=== PATIENT | female | born 1980 | race Two or more races ===

== ENCOUNTER 2025-06-07 12:31 | Inpatient (IN) | payer MEDICAID ==
[~2025-06-07] VITALS: Ht 165.1 cm; Wt 132.2 kg
--- NOTE | 2025-06-07 12:52 | ECG ---
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
--- NOTE | 2025-06-07 13:04 | ED.PDOC ---
HPI Comments 45y F who presents to the ED for chief complaint of chest pain. Pt states she has been having L sided facial and L arm pain with associated chest pain for the past 1 hours ago while pt was sitting down watching TV. Pt rates the pain 7/10, constant, sharp in nature, with associated shortness of breath and nausea. Pt otherwise has history of COPD and presents with 2 L via nc.Pt has had these symptoms in the past with noted past history of multiple strokes and TIA's. Pt otherwise denies any other symptoms at this time. Chief Complaint: Chest Pain Time Seen by MD: 12:50 Reviewed Notes: Nurses Notes, Medications, Allergies Allergies: Coded Allergies: Celecoxib (Verified Allergy, Unknown, 06/07/25) Information Source: Patient, Significant Other Mode of Arrival: Wheelchair Brought in by: boyfriend Severity: Moderate Timing: Hours Duration: Since onset Prehospital treatment: None Location: Chest (R) Radiation: Arm (R), Other (L FACE) Quality: Sharp, Pressure Onset: At Rest Cardiac Risk Factors: Hyperlipidemia, HTN PE Risk Factors: None History of: Similar pain in past Modifying Factors: Nothing Associated Signs and Symptoms: SOB, N/V Past Medical History PAST MEDICAL HISTORY: COPD, CVA, High Lipids, HTN, Seizures, TIA Surgical History: Hysterectomy [employer] History: Denies all [employer] Hx Family History Family History: Family hx of Cancer Social History Smoker: Other (vape) Alcohol: Denies ETOH Use Drugs: Denies Drug Use Lives In: Home Constitutional: reports: fatigue, weakness; denies: chills, diaphoresis, fever, malaise, sweats, others EENTM: denies: blurred vision, double vision, ear bleeding, ear discharge, ear drainage, ear pain, ear ringing, eye pain, eye redness, hearing loss, mouth pain, mouth swelling, nasal discharge, nose bleeding, nose congestion, nose pain, photophobia, tearing, throat pain, throat swelling, voice changes, others Respiratory: reports: shortness of breath; denies: cough, hemoptysis, orthopnea, SOB at rest, SOB with excertion, stridor, wheezing, others Cardiovascular: reports: chest pain; denies: dizzy spells, diaphoresis, Dyspnea on exertion, edema, irregular heart beat, left arm pain, lightheadedness, palpitations, PND, syncope, others Gastrointestinal: reports: nausea; denies: abdomen distended, abdominal pain, blood streaked bowels, constipated, diarrhea, dysphagia, difficulty swallowing, hematemesis, melena, poor appetite, poor fluid intake, rectal bleeding, rectal pain, vomiting, others Genitourinary: denies: abnormal vagina bleeding, burning, dyspareunia, dysuria, flank pain, frequency, hematuria, incontinence, pain, , vagina discharge, urgency, others Neurological: denies: dizziness, fainting, headache, left sided numbness, left sided weakness, numbness, paresthesia, pre-existing deficit, right sided nu mbness, right sided weakness, seizure, speech problems, tingling, tremors, weakness, others Musculoskeletal: denies: back pain, gout, joint pain, joint swelling, muscle pain, muscle stiffness, neck pain, others Integumetry: denies: bruises, change in color, change in hair/nails, dryness, laceration, lesions, lumps, rash, wounds, others Allergic/Immunocompromised: denies: Difficulty Healing, Frequent Infections, Hives, Itching, others Hematologic/Lymphatic: denies: anemia, blood clots, easy bleeding, easy bruising, swollen glands, others Endocrine: denies: excessive hunger, excessive sweating, excessive thirst, excessive urination, flushing, intolerance to cold, intolerance to heat, unexplained weight gain, unexplained weight loss, others Psychiatric: denies: anxiety, bipolar disorder, depression, hopeless, panic disorder, schizophrenia, sleepless, suicidal, others All Other Systems: Reviewed and Negative Physical Exam General Appearance: Moderate Distress, Obese HEENT: Normal ENT Inspection, Pharynx Normal, TMs Normal Neck: Full Range of Motion, Non-Tender, Normal, Normal Inspection Respiratory: Chest Non-Tender, Lungs Clear, No Accessory Muscle Use, No Respiratory Distress, Normal Breath Sounds Cardiovascular: No Edema, No JVD, No Murmur, No Gallop, Normal Peripheral Pulses, Regular Rate/Rhythm Breast Exam: Deferred Gastrointestinal: No Organomegaly, Non Tender, No Pulsatile Mass, Normal Bowel Sounds, Soft Genitalia: Deferred Pelvic: Deferred Rectal: Deferred Extremities: No calf tenderness, Normal capillary refill, No pedal edema Musculoskeletal : Apperance: Normal Neurologic: Alert, cold strip feeder II-XII nml as Tested, Motor Weakness, Normal Affect, Normal Mood, No Sensory Deficits Cerebellar Function: Normal Reflexes: Normal Skin: Dry, Normal Color, Warm Lymphatic: No Adenopathy EKG EKG : Pulse Rate (adult): 84 [place]: LAD Cardiac Rhythm: NSR Block: None Hypertrophy: None ST: Normal Comments low voltage Was a procedure done? Was a procedure done?: No CP Differential Dx Differential Diagnosis: A-fib, A-Flutter, Angina, Anxiety / Panic Attack, Atrial Dysrhythmia, Electrolyte Disorder, Heart Failure, IA, Pulmonary Embolus, PVC's Other Differential Diagnosis COPD exacerbation Differential Diagnosis: HTN Essential, HTN Accelerated X-Ray, Labs, Meds, VS Vital Signs Date Time Temp Pulse Resp B/P (MAP) Pulse Ox O2 Delivery O2 Flow Rate FiO2 06/07/25 13:38 85 06/07/25 13:04 84 06/07/25 12:38 84 06/07/25 12:34 98.0 87 20 113/83 96 98.0 Lab Test 06/07/25 14:27 06/07/25 13:13 Range/Units Troponin I High Sensitivity < 3 L < 3 L </=34 ng/L White Blood Count 10.4 4.4-10.8 10^3/uL Red Blood Count 4.98 4.0-5.20 10^6/uL Hemoglobin 14.8 12.2-16.2 g/dL Hematocrit 44.7 36.0-46.0 % Mean Corpuscular Volume 89.8 80.0-100.0 fL Mean Corpuscular Hemoglobin 29.8 28.0-32.0 pg Mean Corpuscular Hemoglobin Concent 33.2 32.0-36.0 g/dL Red Cell Distribution Width 14.4 H 11.8-14.3 % Platelet Count 316 140-450 10^3/uL Mean Platelet Volume 7.7 6.9-10.8 fL Neutrophils (%) (Auto) 58.1 37.0-80.0 % Lymphocytes (%) (Auto) 26.0 10.0-50.0 % Monocytes (%) (Auto) 9.3 0.0-12.0 % Eosinophils (%) (Auto) 5.7 0.0-7.0 % Basophils (%) (Auto) 0.9 0.0-2.0 % Neutrophils # (Auto) 6.0 1.6-8.6 10 ^3/uL Lymphocytes # (Auto) 2.7 0.4-5.4 10 ^3/uL Monocytes # (Auto) 1.0 0-1.3 10 ^3/uL Eosinophils # (Auto) 0.6 0-0.8 10 ^3/uL Basophils # (Auto) 0.1 0-0.2 10 ^3/uL Nucleated Red Blood Cells 0.0 % Sodium Level 141 136-145 mmol/L Potassium Level 3.6 3.5-5.1 mmol/L Chloride Level 107 98-107 mmol/L Carbon Dioxide Level 25 20-31 mmol/L Anion Gap 9 5-15 Blood Urea Nitrogen 15 9-23 mg/dL Creatinine 0.95 0.550-1.02 mg/dL Glomerular Filtration Rate Calc 76 >90 mL/min BUN/Creatinine Ratio 15.8 10.0-20.0 Serum Glucose 103 74-106 mg/dL Calcium Level 9.3 8.7-10.4 mg/dL XY CHEST TWO VIEWS ROUTINE IMPRESSION: No acute cardiopulmonary disease. IV Hep-Lock was established The patient was given aspirin here in the emergency department's The patient received aspirin The patient's CBC is within normal limits The chemistry panel is within normal limits The troponin level x2 is negative The patient is being admitted with a diagnosis of acute coronary syndrome The patient understands and agrees with the management Images Reviewed?: Images reviewed and evaluated by me Time of 1ST Reevaluation: 14:00 Reevaluation 1ST: Unchanged Patient Education/Counseling: Diagnosis, Treatment, Prognosis Family Education/Counseling: Diagnosis, Treatment, Prognosis SEPSIS Sepsis Screen Date sepsis recognized/suspect: Jun 07, 2025 Time Sepsis recognized/suspect: 1237 Recent Procedure: No On Antibiotic Therapy: No Respiratory Rate >20: No Heart Rate >90: No Temp<36 C (96.8 F) or >38.3 C: No SBP <90 or MAP <65 mmHG: No New Acute Mental Status Change: No Is the patient on CPAP, BIPAP,: No Physician Orders Electrocardigram (06/07/25 15:51) Heplock Iv (06/07/25 12:51) Ehr Trainer (06/07/25 12:51) Blood Pressure (06/07/25 12:51) Pulse Oximetry (06/07/25 12:51) Chest Two Views Routine (06/07/25 12:51) Urinalysis (06/07/25 12:51) Troponin-I Hs (06/07/25 15:51) Vital Signs Date Time Temp Pulse Resp B/P (MAP) Pulse Ox O2 Delivery O2 Flow Rate FiO2 06/07/25 13:38 85 06/07/25 13:04 84 06/07/25 12:38 84 06/07/25 12:34 98.0 87 20 113/83 96 98.0 Laboratory Tests Test 06/07/25 13:13 White Blood Count 10.4 10^3/uL (4.4-10.8) Departure 1 Departure Time of Disposition: 13:59 Impression: Primary Impression: Acute chest pain Additional Impression: Acute coronary syndrome Disposition: ADMITTED INPATIENT Admit to: [facility] Condition: Fair Critical Care Note Critical Care Time?: Yes (45 min-critical care time only) Stability Stability form required: Yes Unstable for transfer: Telemetry monitoring (Telemetry monitoring required), ED Physician Assesment (Clinical assesment) Heart Score Heart Score: Heart Score Response (Comments) Value History Slightly Suspicious 0 EKG Repolarization Disturb 1 Age <45 0 Risk Factors 1 or 2 risk factors 1 Troponin Normal limit 0 Total 2 I personally scribed for TONY CONTRERAS MD ([email or web address]) on 06/07/25 at 13:04. Electronically submitted by Miguel Smith ([facility]). I personally scribed for TONY CONTRERAS MD ([email or web address]) on 06/07/25 at 13:29. Electronically submitted by Miguel Smith ([facility] [employer]). TONY CONTRERAS MD Jun 07, 2025 13:04
--- NOTE | 2025-06-07 13:18 | DVH ---
XY CHEST TWO VIEWS ROUTINE CLINICAL HISTORY: cp COMPARISON: None TECHNIQUE: Frontal and lateral view of the chest was obtained FINDINGS: Lines and Tubes: None Lungs: No focal consolidation. Pleura: No effusion. No pneumothorax. Cardiomediastinal contours: Unremarkable Bones: No acute osseous abnormality. IMPRESSION: No acute cardiopulmonary disease.
--- NOTE | 2025-06-07 13:41 | ECG ---
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
[2025-06-07 14:03] LABS: Hematocrit 44.7 % (36.0-46.0); Hemoglobin 14.8 g/dL (12.2-16.2); Mean Corpuscular Hemoglobin 29.8 pg (28.0-32.0); Mean Corpuscular Volume 89.8 fL (80.0-100.0); Nucleated Red Blood Cells % 0.0 %
[2025-06-07 14:11] LABS: Chloride 107 mmol/L (98-107); Potassium 3.6 mmol/L (3.5-5.1); Sodium 141 mmol/L (136-145)
[2025-06-07 14:12] LABS: Anion Gap 9 (5-15); Calcium 9.3 mg/dL (8.7-10.4); Carbon Dioxide 25 mmol/L (20-31)
[2025-06-07 14:17] LABS: BUN/Creatinine Ratio 15.8 (10.0-20.0); Blood Urea Nitrogen 15 mg/dL (9-23); Glucose 103 mg/dL (74-106)
[2025-06-07] MEDS: MORPHINE SULFATE 4 MG/ML SYR/VIAL IV ONE (19:12)
[2025-06-07] MEDS: ONDANSETRON HCL 4 MG/2 ML VIAL IV ONE (19:13)
[2025-06-07] MEDS ORDERED: NITROGLYCERIN 0.4 MG SL TAB SL PRN (19:45)
[2025-06-07] MEDS ORDERED: MORPHINE SULFATE INJ 2 MG/ml SYRG IV PRN (19:45)
[2025-06-07] MEDS ORDERED: ONDANSETRON HCL 4 MG/2 ML VIAL IV PRN (19:45)
[2025-06-07] MEDS ORDERED: ACETAMINOPHEN 325 MG TAB PO PRN (19:45)
[2025-06-07] MEDS ORDERED: ALBUTEROL SULF 2.5 MG/0.5ML(0.5%) NEB SOLN NEB PRN (19:45)
[2025-06-07 20:01] VITALS: PULSE 80; RESP 18; O2SAT 95
[2025-06-07] MEDS: ALBUTEROL SULF 2.5 MG/0.5ML(0.5%) NEB SOLN ONE (20:01)
[2025-06-07 20:07] VITALS: PULSE 75; RESP 20; O2SAT 100
[2025-06-07 20:55] VITALS: BP 112/71; PULSE 80; RESP 20; TEMP 97.9; O2SAT 95
[2025-06-07] MEDS ORDERED: TOPIRAMATE 100 MG TAB PO SCH (22:00)
[2025-06-07] MEDS ORDERED: lamoTRIgine 100 MG TAB PO SCH (22:00)
[2025-06-07] MEDS ORDERED: ATORVASTATIN 20 MG TAB PO SCH (22:00)
[2025-06-07] MEDS ORDERED: levETIRAcetam 500 MG TAB PO SCH (22:00)
--- NOTE | 2025-06-07 22:11 | DVHHP2 ---
History of Present Illness Reason for Visit: Chest pain History of Present Illness 45-year-old female presents for evaluation of chest pain. Patient reports a one day history of developing left-sided sharp chest pain that was radiating to her left arm causing left arm numbness. She states the episode lasted approximately 1 hour. Currently she denies chest pain, palpitations or shortness for breath. No other acute complaints reported. Past Medical History Hypertension, seizures, CVA, dyslipidemia, COPD Past Surgical History Hysterectomy Family History Noncontributory Smoke: No ALCOHOL: none Drugs: None Lives: with Family Review of Systems Review of Systems Review of systems are currently negative otherwise addressed in HPI. Allergies: Coded Allergies: Celecoxib (Verified Allergy, Unknown, 06/07/25) Medications Current Medications Medications Dose Ordered Sig/[place] Route Start Time Stop Time Status Last Admin Dose Admin Aspirin 81 mg DAILY PO 06/08/25 10:00 Lamotrigine 200 mg Q12HR PO 06/07/25 22:00 Topiramate 100 mg Q12HR PO 06/07/25 22:00 Albuterol 2.5 mg Q6HPRN PRN NEB 06/07/25 19:45 Levetiracetam 750 mg BID PO 06/07/25 22:00 Clopidogrel Bisulfate 75 mg DAILY PO 06/08/25 10:00 Atorvastatin Calcium 80 mg HS PO 06/07/25 22:00 Furosemide 20 mg DAILY PO 06/08/25 10:00 Lisinopril 10 mg DAILY PO 06/08/25 10:00 Ondansetron HCl 4 mg Q4HP PRN IV 06/07/25 19:45 Enoxaparin Sodium 40 mg DAILY SC 06/08/25 10:00 Acetaminophen 650 mg Q6HP PRN PO 06/07/25 19:45 Nitroglycerin 0.4 mg Q5MINP PRN SL 06/07/25 19:45 Morphine Sulfate 2 mg Q30M PRN IV 06/07/25 19:45 Exam Vital Signs Vital Signs Date Time Temp Pulse Resp B/P (MAP) Pulse Ox O2 Delivery O2 Flow Rate FiO2 06/07/25 20:55 97.9 80 20 112/71 95 2.0 24 97.9 06/07/25 20:01 Nasal Cannula* Exam Gen: 45-year-old female in no apparent distress, morbidly obese Skin: Warm, dry, normal color and texture, no rash. HEENT: Normocephalic atraumatic, mucous membranes moist and pink. Neck: Cervical and supraclavicular nodes normal without enlargement, trachea is midline, thyroid gland is normal without masses. Pulmonary: Clear to auscultation and percussion bilaterally. Cardiac: Regular rate and rhythm. No murmur Abdomen: Soft, nontender, nondistended, bowel sounds present all 4 quadrants, no guarding, no rigidity, no organomegaly. Extremities: No cyanosis, clubbing, no edema Neuro: Cranial nerves II through XII grossly intact, normal affect and speech, no focal motor deficits. Labs/Xrays ORDERING PHYSICIAN: TONY CONTRERAS MD PROCEDURE(s): CXR2 - CHEST TWO VIEWS ROUTINE REASON: cp ORDER NUMBER(s): [id number], ACCESSION NUMBER(s): [id number] XY CHEST TWO VIEWS ROUTINE CLINICAL HISTORY: COMPARISON: None TECHNIQUE: Frontal and lateral view of the chest was obtained FINDINGS: Lines and Tubes: None Lungs: No focal consolidation. Pleura: No effusion. No pneumothorax. Cardiomediastinal contours: Unremarkable Bones: No acute osseous abnormality. IMPRESSION: No acute cardiopulmonary disease. Labs Test 06/07/25 16:37 06/07/25 13:13 Range/Units Troponin I High Sensitivity < 3 L </=34 ng/L White Blood Count 10.4 4.4-10.8 10^3/uL Red Blood Count 4.98 4.0-5.20 10^6/uL Hemoglobin 14.8 12.2-16.2 g/dL Hematocrit 44.7 36.0-46.0 % Mean Corpuscular Volume 89.8 80.0-100.0 fL Mean Corpuscular Hemoglobin 29.8 28.0-32.0 pg Mean Corpuscular Hemoglobin Concent 33.2 32.0-36.0 g/dL Red Cell Distribution Width 14.4 H 11.8-14.3 % Platelet Count 316 140-450 10^3/uL Mean Platelet Volume 7.7 6.9-10.8 fL Neutrophils (%) (Auto) 58.1 37.0-80.0 % Lymphocytes (%) (Auto) 26.0 10.0-50.0 % Monocytes (%) (Auto) 9.3 0.0-12.0 % Eosinophils (%) (Auto) 5.7 0.0-7.0 % Basophils (%) (Auto) 0.9 0.0-2.0 % Neutrophils # (Auto) 6.0 1.6-8.6 10 ^3/uL Lymphocytes # (Auto) 2.7 0.4-5.4 10 ^3/uL Monocytes # (Auto) 1.0 0-1.3 10 ^3/uL Eosinophils # (Auto) 0.6 0-0.8 10 ^3/uL Basophils # (Auto) 0.1 0-0.2 10 ^3/uL Nucleated Red Blood Cells 0.0 % Sodium Level 141 136-145 mmol/L Potassium Level 3.6 3.5-5.1 mmol/L Chloride Level 107 98-107 mmol/L Carbon Dioxide Level 25 20-31 mmol/L Anion Gap 9 5-15 Blood Urea Nitrogen 15 9-23 mg/dL Creatinine 0.95 0.550-1.02 mg/dL Glomerular Filtration Rate Calc 76 >90 mL/min BUN/Creatinine Ratio 15.8 10.0-20.0 Serum Glucose 103 74-106 mg/dL Calcium Level 9.3 8.7-10.4 mg/dL SEPSIS Sepsis Screen Date sepsis recognized/suspect: Jun 07, 2025 Time Sepsis recognized/suspect: 1236 Recent Procedure: No On Antibiotic Therapy: No Respiratory Rate >20: No Heart Rate >90: No Temp<36 C (96.8 F) or >38.3 C: No SBP <90 or MAP <65 mmHG: No New Acute Mental Status Change: No Is the patient on CPAP, BIPAP,: No Physician Orders Aspirin Tablet (06/08/25 10:00) Lamotrigine Tablet (Lamictal Tablet) (06/07/25 22:00) Topiramate (Topamax) (06/07/25 22:00) Albuterol Medneb (Ventolin Medneb) (06/07/25 19:45) Levetiracetam Tablet (Keppra Tablet) (06/07/25 22:00) Clopidogrel Bisulfate (Plavix) (06/08/25 10:00) Atorvastatin (Lipitor) (06/07/25 22:00) Furosemide Tablet (Lasix Tablet) (06/08/25 10:00) Basic Metabolic Panel (06/08/25 04:00) Lisinopril Tablet (Zestril Tablet) (06/08/25 10:00) Admit (06/07/25 19:40) Ondansetron Hcl (Zofran) (06/07/25 19:45) Enoxaparin Sodium (Lovenox) (06/08/25 10:00) Cardiac Diet-2gna,Lofat,Lochol (06/08/25 Breakfast) Echo 2d Mode Cardiac Dop (06/07/25 19:40) Condition: Fair (06/07/25 19:40) Acetaminophen Tablet (Tylenol Tablet) (06/07/25 19:45) Bedrest With Bathroom Privileg (06/07/25 19:40) Nitroglycerin Sublingual (Ntrostat Subli (06/07/25 19:45) Morphine Sulfate Injection (06/07/25 19:45) Stat Ekg For Chest Pain (06/07/25 19:40) Notify Md Of Changes From Base (06/07/25 19:40) Prepared Foods Associate For 24 Hours (06/07/25 19:40) Emergency Dysrhythmia Protocol (06/07/25 19:40) Rhythm Strips Once Every Shift (06/07/25 19:40) Oxygen By Nasal Cannula (06/07/25 19:40) Vital Signs Date Time Temp Pulse Resp B/P (MAP) Pulse Ox O2 Delivery O2 Flow Rate FiO2 06/07/25 20:55 97.9 80 20 112/71 95 2.0 24 97.9 06/07/25 20:39 97.9 82 16 112/71 (85) 98 97.9 06/07/25 20:07 75 20 100 06/07/25 20:01 95 Nasal Cannula* 2 28 06/07/25 20:01 80 18 95 06/07/25 20:01 95 Nasal Cannula 2.0 06/07/25 19:12 93 14 118/78 06/07/25 18:42 Nasal Cannula* 2 28 06/07/25 18:40 98.3 93 14 118/78 (91) 96 98.3 06/07/25 16:51 98.3 78 20 153/62 (92) 99 98.3 Laboratory Tests Test 06/07/25 13:13 White Blood Count 10.4 10^3/uL (4.4-10.8) Medications Medications Dose Ordered Sig/[place] Route Start Time Stop Time Status Last Admin Dose Admin Albuterol 2.5 mg STK-MED ONCE .ROUTE 06/07/25 19:58 06/07/25 19:55 DC 06/07/25 20:01 2.5 MG Aspirin 162 mg ONCE ONCE PO 06/07/25 13:00 06/07/25 13:01 DC 06/07/25 18:31 162 MG Morphine Sulfate 4 mg ONCE ONCE IV 06/07/25 13:00 06/07/25 13:01 DC 06/07/25 19:12 4 MG Ondansetron HCl 4 mg ONCE ONCE IV 06/07/25 13:00 06/07/25 13:01 DC 06/07/25 19:13 4 MG Assessment/Plan Assessment/Plan Assessment Chest pain, rule out ACS History of CVA with right-sided deficits Hypertension History of seizures Plan Admit the patient to telemetry to the hospitalist Resume home medications Continue treatment per orders. Plan discussed with: Patient My Orders Orders - CAMPOS DURBIN AGACNHanh Procedure Category Date Status Time Aspirin Tablet PHA 06/08/25 In Process 10:00 Lamotrigine Tablet PHA 06/07/25 In Process (Lamictal Tablet) 22:00 Topiramate (Topamax) PHA 06/07/25 In Process 22:00 Albuterol Medneb PHA 06/07/25 In Process (Ventolin Medneb) 19:45 Levetiracetam Tablet PHA 06/07/25 In Process (Keppra Tablet) 22:00 Clopidogrel Bisulfate PHA 06/08/25 In Process (Plavix) 10:00 Atorvastatin (Lipitor) PHA 06/07/25 In Process 22:00 Furosemide Tablet PHA 06/08/25 In Process (Lasix Tablet) 10:00 Basic Metabolic Panel LAB 06/08/25 Verified 04:00 Lisinopril Tablet PHA 06/08/25 In Process (Zestril Tablet) 10:00 Admit ADMIT 06/07/25 Transmitted 19:40 Ondansetron Hcl PHA 06/07/25 In Process (Zofran) 19:45 Enoxaparin Sodium PHA 06/08/25 In Process (Lovenox) 10:00 Cardiac DIET 06/08/25 Transmitted Diet-2gna,Lofat,Lochol Breakfast Echo 2d Mode Cardiac US 06/07/25 Logged DOP 19:40 Condition: Fair [facility] 06/07/25 In Process 19:40 Acetaminophen Tablet [facility] 06/07/25 In Process (Tylenol Tablet) 19:45 Bedrest With Bathroom [facility] 06/07/25 In Process Privileg 19:40 Nitroglycerin [facility] 06/07/25 In Process Sublingual (Ntrostat 19:45 Morphine Sulfate [facility] 06/07/25 In Process Injection 19:45 Stat Ekg For Chest [facility] 06/07/25 In Process Pain 19:40 Notify Md Of Changes [facility] 06/07/25 In Process From Base 19:40 Prepared Foods Associate For [facility] 06/07/25 In Process 24 Hours 19:40 Emergency Dysrhythmia [facility] 06/07/25 In Process Protocol 19:40 Rhythm Strips Once [facility] 06/07/25 In Process Every Shift 19:40 Oxygen By Nasal RT 06/07/25 Transmitted Cannula 19:40 Date of Service: Jun 07, 2025 Billing Provider: CAMPOS DURBIN Common Visit Codes: [id number] INP/OBS CARE (HIGH) CAMPOS DURBIN Jun 07, 2025 22:11
[2025-06-08] MEDS ORDERED: FUROSEMIDE 20 MG TAB PO SCH (10:00)
[2025-06-08] MEDS ORDERED: LISINOPRIL 5 MG TAB PO SCH (10:00)
[2025-06-08] MEDS ORDERED: CLOPIDOGREL BISULFATE 75 MG TAB PO SCH (10:00)
[2025-06-08] MEDS ORDERED: ENOXAPARIN SOD 40 MG/0.4 ML SYRINGE SC SCH (10:00)
--- NOTE | 2025-06-08 16:34 | DVHPN2 ---
Subjective Pain-free. Troponins x3 are negative. Admitted just before midnight. Changes from previous H/P or p: No Changes Objective Vitals Vital Signs Date Time Temp Pulse Resp B/P (MAP) Pulse Ox O2 Delivery O2 Flow Rate FiO2 06/07/25 20:55 97.9 80 20 112/71 95 2.0 24 97.9 06/07/25 20:01 Nasal Cannula* Exam Alert awake oriented to place and person. HEENT neck supple no JVD. Heart regular rate and rhythm S1-S2 without murmurs. Lungs fair air movement chest equal expansion without rales or wheezing. Abdomen soft positive bowel sounds nontender. Extremities no edema. Positive pulses. Medications Current Medications Medications Dose Ordered Sig/[place] Route Start Time Stop Time Status Last Admin Dose Admin Aspirin 81 mg DAILY PO 06/08/25 10:00 Lamotrigine 200 mg Q12HR PO 06/07/25 22:00 Topiramate 100 mg Q12HR PO 06/07/25 22:00 Albuterol 2.5 mg Q6HPRN PRN NEB 06/07/25 19:45 Levetiracetam 750 mg BID PO 06/07/25 22:00 Clopidogrel Bisulfate 75 mg DAILY PO 06/08/25 10:00 Atorvastatin Calcium 80 mg HS PO 06/07/25 22:00 Furosemide 20 mg DAILY PO 06/08/25 10:00 Lisinopril 10 mg DAILY PO 06/08/25 10:00 Ondansetron HCl 4 mg Q4HP PRN IV 06/07/25 19:45 Enoxaparin Sodium 40 mg DAILY SC 06/08/25 10:00 Acetaminophen 650 mg Q6HP PRN PO 06/07/25 19:45 Nitroglycerin 0.4 mg Q5MINP PRN SL 06/07/25 19:45 Morphine Sulfate 2 mg Q30M PRN IV 06/07/25 19:45 Laboratory Results Laboratory Tests 06/07/25 13:13 Assessment/Plan Assessment/Plan So far her troponins have been negative. We will obtain a 2D echocardiogram and cardiac consultation today. I will check a D-dimer level. I will start her on proton pump inhibitor for possible GERD. Chest pain could be related to costochondritis. Further clinical management per clinical course and pending evaluations and studies. Plan discussed with: Other Problem List: (1) Acute chest pain Date of Service: Jun 08, 2025 Billing Provider: ROBERTO PITTS MD Common Visit Codes: [id number] INP/OBS CARE(MOD) ROBERTO PITTS MD Jun 08, 2025 16:34
[2025-06-08] MEDS ORDERED: PANTOPRAZOLE 40 MG TAB PO SCH (17:00)
--- NOTE | 2025-06-15 07:22 | ECG ---
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
== END 2025-06-07 20:55 | disposition left against medical advice (07) | DRG 203 ==
LOC: ER 12:31 → OVERFLOW 19:40
PROVIDERS: ADMIT Hospitalist; ATTEND Hospitalist
DX: M94.0 Chondrocostal junction syndrome [Tietze] (principal); I24.9 Acute ischemic heart disease, unspecified; I69.351 Hemiplegia and hemiparesis following cerebral infarction affecting right dominant side; E78.5 Hyperlipidemia, unspecified; I10 Essential (primary) hypertension; J44.9 Chronic obstructive pulmonary disease, unspecified; K21.9 Gastro-esophageal reflux disease without esophagitis; F17.200 Nicotine dependence, unspecified, uncomplicated; Z88.8 Allergy status to other drugs, medicaments and biological substances; Z90.710 Acquired absence of both cervix and uterus; Z80.9 Family history of malignant neoplasm, unspecified; Z79.82 Long term (current) use of aspirin
CPT/HCPCS: 36415; 71046; 80048; 84484; 85025; 93005; 94640; 96374; 96375; G0378; J2405

== ENCOUNTER 2025-06-13 14:35 | Inpatient (IN) | payer MEDICAID ==
[~2025-06-13] VITALS: Ht 165.1 cm; Wt 135.0 kg
--- NOTE | 2025-06-13 14:57 | ED.PDOC ---
HPI Comments 45 y/o F, with PMHx of HLD, HTN, TIA, CVA, COPD, and seizures presents to the ED for CC of chest pain. 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 Patient denies shortness of breath, cough, palpitations, headache, or dizziness. No other symptoms or modifying factors present at this time. Chief Complaint: Chest Pain Time Seen by MD: 14:50 Reviewed Notes: Nurses Notes, Medications, Allergies Allergies: Coded Allergies: Celecoxib (Verified Allergy, Unknown, 06/07/25) Home Meds Reported Medications Verapamil Hcl (Calan) 40 Mg Tb, 1 PO DAILY 06/14/25 Risperidone (Risperidone) 1 Mg Tab, 1 TAB PO BID 06/14/25 Clopidogrel Bisulfate (CLOPIDOGREL) 75 Mg Tab, 1 TAB PO DAILY 06/14/25 Fenofibrate (Fenofibrate) 160 Mg Tab, 1 TAB PO DAILY 06/14/25 Benztropine Mesylate (Benztropine Mesylate) 2 Mg Tab, 1 TAB PO BID 06/14/25 Furosemide (Furosemide) 20 Mg Tab, 1 TAB PO DAILY 06/14/25 Multiple Vitamin (Multivitamin) 1 Tab Tab, 1 TAB PO DAILY 06/14/25 Atorvastatin Calcium (ATORVASTATIN CALCIUM) 80 Mg Tab, 1 TAB PO DAILY 06/14/25 Escitalopram Oxalate (ESCITALOPRAM OXALATE) 20 Mg Tab, 1 TAB PO DAILY 06/14/25 Omeprazole (Omeprazole Dr) 20 Mg Cap, 1 CAP PO DAILY 06/14/25 Prazosin HCl (Prazosin Hydrochloride) 5 Mg Cap, 1 CAP PO HS 06/14/25 Trazodone Hcl (Trazodone Hcl) 300 Mg Tab, 1 TAB PO HS 06/14/25 Hydroxyzine Hcl (Hydroxyzine Hcl) 25 Mg Tab, 1 TAB PO QID 06/14/25 Lamotrigine (Lamotrigine) 200 Mg Tab, 100 MG PO BID 06/14/25 Topiramate (Topiramate) 100 Mg Tab, 1 TAB PO BID 06/14/25 Levetiracetam (Levetiracetam) 750 Mg Tab, 1 TAB PO BID 06/14/25 Information Source: Patient Mode of Arrival: Wheelchair Severity: Moderate Timing: Minutes Duration: Since onset Past Medical History PAST MEDICAL HISTORY: COPD, CVA, High Lipids, HTN, Seizures, TIA Surgical History: Hysterectomy 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 Family History Family History: Family hx of Cancer Social History Smoker: Other Alcohol: Denies ETOH Use Drugs: Denies Drug Use Lives In: Home Constitutional: denies: chills, diaphoresis, fatigue, fever, malaise, sweats, weakness, others EENTM: denies: blurred vision, double vision, ear bleeding, ear discharge, ear drainage, ear pain, ear ringing, eye pain, eye redness, hearing loss, mouth pain, mouth swelling, nasal discharge, nose bleeding, nose congestion, nose pain, photophobia, tearing, throat pain, throat swelling, voice changes, others Respiratory: denies: cough, hemoptysis, orthopnea, SOB at rest, shortness of breath, SOB with excertion, stridor, wheezing, others Cardiovascular: reports: chest pain; denies: dizzy spells, diaphoresis, Dyspnea on exertion, edema, irregular heart beat, left arm pain, lightheadedness, palpitations, PND, syncope, others Gastrointestinal: denies: abdomen distended, abdominal pain, blood streaked bowels, constipated, diarrhea, dysphagia, difficulty swallowing, hematemesis, melena, nausea, poor appetite, poor fluid intake, rectal bleeding, rectal pain, vomiting, others Genitourinary: denies: abnormal vagina bleeding, burning, dyspareunia, dysuria, flank pain, frequency, hematuria, incontinence, pain, , vagina discharge, urgency, others Neurological: denies: dizziness, fainting, headache, left sided numbness, left sided weakness, numbness, paresthesia, pre-existing deficit, right sided numbness, right sided weakness, seizure, speech problems, tingling, tremors, weakness, others Musculoskeletal: denies: back pain, gout, joint pain, joint swelling, muscle pain, muscle stiffness, neck pain, others Integumetry: denies: bruises, change in color, change in hair/nails, dryness, laceration, lesions, lumps, rash, wounds, others Allergic/Immunocompromised: denies: Difficulty Healing, Frequent Infections, Hives, Itching, others Hematologic/Lymphatic: denies: anemia, blood clots, easy bleeding, easy bruising, swollen glands, others Endocrine: denies: excessive hunger, excessive sweating, excessive thirst, excessive urination, flushing, intolerance to cold, intolerance to heat, unexplained weight gain, unexplained weight loss, others Psychiatric: denies: anxiety, bipolar disorder, depression, hopeless, panic disorder, schizophrenia, sleepless, suicidal, others All Other Systems: Reviewed and Negative Physical Exam General Appearance: No Apparent Distress, Obese HEENT: Normal ENT Inspection, Pharynx Normal Neck: Full Range of Motion, Non-Tender, Normal, Normal Inspection Respiratory: Chest Non-Tender, Lungs Clear, No Accessory Muscle Use, No Respiratory Distress, Normal Breath Sounds Cardiovascular: No Edema, No Murmur, No Gallop, Normal Peripheral Pulses, Regular Rate/Rhythm Breast Exam: Deferred Gastrointestinal: No Organomegaly, Non Tender, No Pulsatile Mass, Normal Bowel Sounds, Soft Genitalia: Deferred Pelvic: Deferred Rectal: Deferred Extremities: No calf tenderness, Normal capillary refill, Normal inspection, Normal range of motion, Non-tender, No pedal edema Musculoskeletal : Apperance: Normal Neurologic: Alert, section leader II-XII nml as Tested, No Motor Deficits, Normal Affect, Normal Mood, No Sensory Deficits Cerebellar Function: Normal Reflexes: Normal Skin: Dry, Normal Color, Warm Lymphatic: No Adenopathy Was a procedure done? Was a procedure done?: No CP Differential Dx Differential Diagnosis: Anxiety / Panic Attack Differential Diagnosis: HTN Essential, HTN Accelerated Differential Diagnosis: Chest Wall Pain, Costochondritis, Esophageal reflux/spasm, Gastritis X-Ray, Labs, Meds, VS Vital Signs Date Time Temp Pulse Resp B/P (MAP) Pulse Ox O2 Delivery O2 Flow Rate FiO2 06/13/25 15:32 100 06/13/25 14:41 111 06/13/25 14:37 99.2 117 20 112/77 93 99.2 Lab Test 06/13/25 17:24 06/13/25 14:57 Range/Units Troponin I High Sensitivity < 3 L < 3 L </=34 ng/L White Blood Count 11.2 H 4.4-10.8 10^3/uL Red Blood Count 4.88 4.0-5.20 10^6/uL Hemoglobin 14.8 12.2-16.2 g/dL Hematocrit 43.6 36.0-46.0 % Mean Corpuscular Volume 89.3 80.0-100.0 fL Mean Corpuscular Hemoglobin 30.3 28.0-32.0 pg Mean Corpuscular Hemoglobin Concent 33.9 32.0-36.0 g/dL Red Cell Distribution Width 14.1 11.8-14.3 % Platelet Count 308 140-450 10^3/uL Mean Platelet Volume 7.9 6.9-10.8 fL Neutrophils (%) (Auto) 59.8 37.0-80.0 % Lymphocytes (%) (Auto) 28.2 10.0-50.0 % Monocytes (%) (Auto) 7.9 0.0-12.0 % Eosinophils (%) (Auto) 3.6 0.0-7.0 % Basophils (%) (Auto) 0.5 0.0-2.0 % Neutrophils # (Auto) 6.7 1.6-8.6 10 ^3/uL Lymphocytes # (Auto) 3.2 0.4-5.4 10 ^3/uL Monocytes # (Auto) 0.9 0-1.3 10 ^3/uL Eosinophils # (Auto) 0.4 0-0.8 10 ^3/uL Basophils # (Auto) 0.1 0-0.2 10 ^3/uL Nucleated Red Blood Cells 0.1 % Sodium Level 142 136-145 mmol/L Potassium Level 3.5 3.5-5.1 mmol/L Chloride Level 108 H 98-107 mmol/L Carbon Dioxide Level 23 20-31 mmol/L Anion Gap 11 5-15 Blood Urea Nitrogen 8 L 9-23 mg/dL Creatinine 0.85 0.550-1.02 mg/dL Glomerular Filtration Rate Calc 87 >90 mL/min BUN/Creatinine Ratio 9.4 L 10.0-20.0 Serum Glucose 105 74-106 mg/dL Calcium Level 9.6 8.7-10.4 mg/dL [address] [address] Ph: [phone] DIAGNOSTIC IMAGING Diagnostic Imaging Report : [id number] Signed PATIENT: DOMINIQUE HUSAINCCT: [id number] UNIT: [id number] : 1980 LOC: ER ROOM / BED: / AGE / SEX: 45 / F ADM STATUS: REG ER SERVICE [id number] ORDERING PHYSICIAN: NICOL BLACKBURN MD PROCEDURE(s): CXRP - CHEST PORTABLE REASON: chest pain ORDER NUMBER(s): [id number], ACCESSION NUMBER(s): [id number] INDICATION: chest pain TECHNIQUE: Frontal view of the chest. COMPARISON: XY CHEST TWO VIEWS ROUTINE on DOS: 06/07/25 FINDINGS: Cardiomegaly. The heart and mediastinal contours are grossly unremarkable. There is no evidence of pleural disease. The lungs are clear. The bony structures of the chest are intact without fracture. IMPRESSION: 1. No evidence of acute disease. ATED BY: JACOB ANDREWS MD DICTATED DATE/TIME: 06/13/251537 SIGNED BY: JACOB ANDREWS MD SIGNED DATE/TIME: 06/13/251537 CC: Time of 1ST Reevaluation: 15:20 Reevaluation 1ST: Unchanged Patient Education/Counseling: Diagnosis, Treatment Family Education/Counseling: No Family Present SEPSIS Sepsis Screen Date sepsis recognized/suspect: Jun 13, 2025 Time Sepsis recognized/suspect: 1440 Recent Procedure: No On Antibiotic Therapy: No Respiratory Rate >20: No Heart Rate >90: Yes Temp<36 C (96.8 F) or >38.3 C: No SBP <90 or MAP <65 mmHG: No New Acute Mental Status Change: No Is the patient on CPAP, BIPAP,: No Physician Orders Electrocardigram (06/13/25 17:37) Chest Portable (06/13/25 15:11) Vital Signs Date Time Temp Pulse Resp B/P (MAP) Pulse Ox O2 Delivery O2 Flow Rate FiO2 06/13/25 15:32 100 06/13/25 14:41 111 06/13/25 14:37 99.2 117 20 112/77 93 99.2 Laboratory Tests Test 06/13/25 14:57 White Blood Count 11.2 10^3/uL (4.4-10.8) H Departure 1 Departure Time of Disposition: 17:29 (Patient presented with chest pain that was concerning for possible STEMI, ACS, PE, Pneumonia, Muscle Strain, COPD, Dissection. Data: 1. I ordered and reviewed the result of at least 3 labs including a CBC, BMP, and Troponin. 2. I independently interpreted the following tests: EKG which shows sinus arrhythmia and Chest X-ray which shows benign chest.Risk:This patient has a high risk of morbidity due to further diagnostic testing or treatment and may suffer from an acute cardiac or respiratory disorder. Workup reveals concern for ACS and patient should be admitted for further workup and possible expert consultation. ) Impression: Primary Impression: Acute chest pain Disposition: 07 LEFT AWOL/ELOPED Condition: Serious Critical Care Note Critical Care Time?: Yes Critical care comment: Acute chest pain Authorized and Performed by: Nicol Blackburn MD Total critical care time: Approximately 33 minutes Due to a high probability of clinically significant, life threatening deterioration, the patient required my highest level of preparedness to intervene emergently and I personally spent this critical care time directly and personally managing the patient. This critical care time included obtaining a history; examining the patient; pulse oximetry; ordering and review of studies; arranging urgent treatment with development of a management plan; evaluation of patient's response to treatment; frequent reassessment; and, discussions with other providers. This critical care time was performed to assess and manage the high probability of imminent, life-threatening deterioration that could result in multi-organ failure. It was exclusive of separately billable procedures and treating other patients and teaching time. Please see my other sections and the rest of the note for further information on patient assessment and treatment. Stability Stability form required: No Heart Score Heart Score: Heart Score Response (Comments) Value History Slightly Suspicious 0 EKG N/A 0 Age <45 0 Risk Factors 1 or 2 risk factors 1 Troponin N/A 0 Total 1 I personally scribed for NICOL BLACKBURN MD ([email or web address]) on 06/13/25 at 14:57. Electronically submitted by Liza Meier ([email or web address]). I personally scribed for NICOL BLACKBURN MD ([email or web address]) on 06/13/25 at 16:00. Electronically submitted by Liza Meier ([email or web address]). NICOL BLACKBURN MD Jun 13, 2025 14:57
--- NOTE | 2025-06-13 15:40 | DVH ---
INDICATION: chest pain TECHNIQUE: Frontal view of the chest. COMPARISON: XY CHEST TWO VIEWS ROUTINE on DOS: 06/07/25 FINDINGS: Cardiomegaly. The heart and mediastinal contours are grossly unremarkable. There is no evidence of p leural disease. The lungs are clear. The bony structures of the chest are intact without fracture. IMPRESSION: 1. No evidence of acute disease.
[2025-06-13 16:09] LABS: Hematocrit 43.6 % (36.0-46.0); Hemoglobin 14.8 g/dL (12.2-16.2); Mean Corpuscular Hemoglobin 30.3 pg (28.0-32.0); Mean Corpuscular Volume 89.3 fL (80.0-100.0); Nucleated Red Blood Cells % 0.1 %
[2025-06-13 16:59] LABS: Sodium 142 mmol/L (136-145)
[2025-06-13 17:00] LABS: Anion Gap 11 (5-15); Carbon Dioxide 23 mmol/L (20-31); Chloride 108 mmol/L (98-107); Potassium 3.5 mmol/L (3.5-5.1)
[2025-06-13 17:01] LABS: Calcium 9.6 mg/dL (8.7-10.4)
[2025-06-13 17:06] LABS: BUN/Creatinine Ratio 9.4 (10.0-20.0); Blood Urea Nitrogen 8 mg/dL (9-23); Glucose 105 mg/dL (74-106)
[2025-06-13] MEDS ORDERED: NITROGLYCERIN 0.4 MG SL TAB SL PRN (19:45)
[2025-06-13] MEDS ORDERED: MORPHINE SULFATE INJ 2 MG/ml SYRG IV PRN (19:45)
[2025-06-13 20:14] VITALS: BP 112/77; PULSE 100; RESP 20; TEMP 99.2; O2SAT 93
[2025-06-13] MEDS ORDERED: ACETAMINOPHEN 325 MG TAB PO PRN (20:15)
[2025-06-13] MEDS ORDERED: ALBUTEROL SULF 2.5 MG/0.5ML(0.5%) NEB SOLN NEB PRN (20:15)
[2025-06-13] MEDS ORDERED: ONDANSETRON HCL 4 MG/2 ML VIAL IV PRN (20:15)
[2025-06-13] MEDS ORDERED: TEMAZEPAM 15 MG CAP PO PRN (20:15)
[2025-06-13] MEDS ORDERED: lamoTRIgine 100 MG TAB PO SCH (22:00)
[2025-06-13] MEDS ORDERED: levETIRAcetam 500 MG TAB PO SCH (22:00)
[2025-06-13] MEDS ORDERED: ATORVASTATIN 20 MG TAB PO SCH (22:00)
--- NOTE | 2025-06-14 06:14 | ECG ---
[facility] Test Date: 2025-06-13 Test Time: 20:27:02 Pat Name: DOMINIQUE HUSAIN Department: ED Room: [address] [place] [address] A Gender: F Transporter Radiology: james : 1980 Requested By: NICOL NEVILLE Order Number: [id number] Reading MD: Brayden Echeverria Measurements Intervals [place] Rate: 97 P: 38 GA: 167 QRS: 167 QRSD: 90 T: 107 QT: 345 QTc: 439 Interpretive Statements Sinus rhythm Right axis deviation Low voltage, precordial leads Nonspecific T abnrm, anterolateral leads Electronically Signed On 06-20-2025 22:26:18 PDT by Brayden Echeverria Please click the below link to view image of tracing.
[2025-06-14] MEDS ORDERED: VER40T PO (06:45)
[2025-06-14] MEDS ORDERED: MULT-1056 PO (06:45)
[2025-06-14] MEDS ORDERED: RISP1TAB63 PO (06:45)
[2025-06-14] MEDS ORDERED: ATOR-47 PO (06:45)
[2025-06-14] MEDS ORDERED: ESCI1TAB37 PO (06:45)
[2025-06-14] MEDS ORDERED: FENO160T PO (06:45)
[2025-06-14] MEDS ORDERED: HYDR-3682 PO (06:45)
[2025-06-14] MEDS ORDERED: PRAZ5CAP25 PO (06:45)
[2025-06-14] MEDS ORDERED: BENZ2TAB50 PO (06:45)
[2025-06-14] MEDS ORDERED: FURO20TA4 PO (06:45)
[2025-06-14] MEDS ORDERED: TOPI100T68 PO (06:45)
[2025-06-14] MEDS ORDERED: OMEP1CAP70 PO (06:45)
[2025-06-14] MEDS ORDERED: TRAZ300T13 PO (06:45)
[2025-06-14] MEDS ORDERED: LEVE750T3 PO (06:45)
[2025-06-14] MEDS ORDERED: LAMO200T34 PO (06:45)
[2025-06-14] MEDS ORDERED: CLOP75TA70 PO (06:45)
--- NOTE | 2025-06-14 06:48 | ECG ---
[facility] Test Date: 2025-06-13 Test Time: 14:41:09 Pat Name: DOMINIQUE HUSAIN Department: Room: [address] [place] [address] A Gender: F Janitorial Cleaner: DR ROBBINS: 1980 Requested By: NICOL NEVILLE Order Number: [id number] Reading MD: Brayden Echeverria Measurements Intervals [place] Rate: 111 P: 35 MI: 162 QRS: 193 QRSD: 72 T: -1 QT: 336 QTc: 457 Interpretive Statements Sinus tachycardia Probable anterior infarct, age indeterminate Electronically Signed On 06-20-2025 22:25:17 PDT by Brayden Echeverria Please click the below link to view image of tracing.
[2025-06-14] MEDS ORDERED: FUROSEMIDE 20 MG TAB PO SCH (10:00)
[2025-06-14] MEDS ORDERED: CLOPIDOGREL BISULFATE 75 MG TAB PO SCH (10:00)
--- NOTE | 2025-06-16 13:00 | ECG ---
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
== END 2025-06-13 20:41 | disposition left against medical advice (07) | DRG 203 ==
LOC: ER 14:38 → OVERFLOW 19:37
PROVIDERS: ADMIT Nurse Practitioner; ATTEND Nurse Practitioner
DX: R07.89 Other chest pain (principal); E78.5 Hyperlipidemia, unspecified; F17.200 Nicotine dependence, unspecified, uncomplicated; I10 Essential (primary) hypertension; Z53.29 Procedure and treatment not carried out because of patient's decision for other reasons; J44.9 Chronic obstructive pulmonary disease, unspecified; Z79.899 Other long term (current) drug therapy; Z88.8 Allergy status to other drugs, medicaments and biological substances; Z90.710 Acquired absence of both cervix and uterus; Z86.73 Personal history of transient ischemic attack (TIA), and cerebral infarction without residual deficits
CPT/HCPCS: 36415; 71045; 80048; 84484; 85025; 93005; 99291; G0378

== ENCOUNTER 2025-06-13 20:42 | Inpatient (IN) | payer MEDICAID ==
[~2025-06-13] VITALS: Ht 165.1 cm; Wt 131.8 kg
--- NOTE | 2025-06-13 21:16 | ED.PDOC ---
HPI Comments 45 y/o F, with PMHx of HLD, HTN, TIA, CVA, COPD, and seizures presents to the ED for CC of chest pain. Patient states, she has been experiencing spontaneous unprovoked left sided chest pain for hours. Patient came to the ED just hours ago and was put up for admission, but left prior to hospitalist encounter. Patient denies shortness of breath, cough, palpitations, headache, or dizziness. No other symptoms or modifying factors present at this time. REVIEW OF SYSTEMS: No fever, no chills, or fatigue HEENT: No sore throat, no earache, no congestion, no neck pain. Cardiac: (+) chest pain. No palpitations. Lungs: No shortness of breath, no cough. GI: No nausea, no vomiting, no diarrhea, no constipation, no abdominal pain : No dysuria, frequency, or urgency. No hematuria. Musculoskeletal: No joint pain , no joint swelling, no extremity edema. Skin: No rash, no itching. Neuro: No headache, no dizziness, no weakness PHYSICAL EXAM: General: Awake, alert and oriented. No acute distress. Skin: Skin in warm, dry and intact without rashes or lesions. HEENT: The head is normocephalic and atraumatic. Conjunctivae are clear without exudates or hemorrhage. Sclera is non-icteric. Neck: Normal range of motion. No JVD. Cardiac: Regular rate Respiratory: No signs of respiratory distress. No Stridor. Extremities: Upper and lower extremities are atraumatic in appearance without deformity. Neurological: The patient is awake, alert and oriented to person, place, and time with normal speech. Speech is clear. There is no facial asymmetry. Psychiatric: Appropriate mood and affect. Good judgement and insight. Chief Complaint: Chest Pain Time Seen by MD: 21:04 Reviewed Notes: Medications, Allergies Allergies: Coded Allergies: Celecoxib (Verified Allergy, Unknown, 06/07/25) Home Meds Reported Medications Verapamil Hcl (Calan) 40 Mg Tb, 1 PO DAILY 06/14/25 Risperidone (Risperidone) 1 Mg Tab, 1 TAB PO BID 06/14/25 Clopidogrel Bisulfate (CLOPIDOGREL) 75 Mg Tab, 1 TAB PO DAILY 06/14/25 Fenofibrate (Fenofibrate) 160 Mg Tab, 1 TAB PO DAILY 06/14/25 Benztropine Mesylate (Benztropine Mesylate) 2 Mg Tab, 1 TAB PO BID 06/14/25 Furosemide (Furosemide) 20 Mg Tab, 1 TAB PO DAILY 06/14/25 Multiple Vitamin (Multivitamin) 1 Tab Tab, 1 TAB PO DAILY 06/14/25 Atorvastatin Calcium (ATORVASTATIN CALCIUM) 80 Mg Tab, 1 TAB PO DAILY 06/14/25 Escitalopram Oxalate (ESCITALOPRAM OXALATE) 20 Mg Tab, 1 TAB PO DAILY 06/14/25 Omeprazole (Omeprazole Dr) 20 Mg Cap, 1 CAP PO DAILY 06/14/25 Prazosin HCl (Prazosin Hydrochloride) 5 Mg Cap, 1 CAP PO HS 06/14/25 Trazodone Hcl (Trazodone Hcl) 300 Mg Tab, 1 TAB PO HS 06/14/25 Hydroxyzine Hcl (Hydroxyzine Hcl) 25 Mg Tab, 1 TAB PO QID 06/14/25 Lamotrigine (Lamotrigine) 200 Mg Tab, 100 MG PO BID 06/14/25 Topiramate (Topiramate) 100 Mg Tab, 1 TAB PO BID 06/14/25 Levetiracetam (Levetiracetam) 750 Mg Tab, 1 TAB PO BID 06/14/25 Mode of Arrival: EMS Severity: Moderate Timing: Hours Duration: Since onset Prehospital treatment: 12 Lead EKG Location: Chest (L) Associated Signs and Symptoms: Other (chest pain ) Past Medical History PAST MEDICAL HISTORY: COPD, CVA, High Lipids, HTN, Seizures, TIA Surgical History: Hysterectomy 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 Was a procedure done?: No CP Differential Dx Differential Diagnosis: A-fib, Anxiety / Panic Attack Differential Diagnosis: HTN Essential Differential Diagnosis: Chest Wall Pain X-Ray, Labs, Meds, VS Vital Signs Date Time Temp Pulse Resp B/P (MAP) Pulse Ox O2 Delivery O2 Flow Rate FiO2 06/13/25 21:22 97 06/13/25 20:44 98.1 100 16 136/79 99 98.1 06/13/25 20:42 97 Time of 1ST Reevaluation: 21:26 Reevaluation 1ST: Unchanged Patient Education/Counseling: Other (Need for admission) Family Education/Counseling: No Family Present SEPSIS Sepsis Screen Date sepsis recognized/suspect: Jun 13, 2025 Time Sepsis recognized/suspect: 2047 Recent Procedure: No On Antibiotic Therapy: No Respiratory Rate >20: No Heart Rate >90: Yes Temp<36 C (96.8 F) or >38.3 C: No SBP <90 or MAP <65 mmHG: No New Acute Mental Status Change: No Is the patient on CPAP, BIPAP,: No Physician Orders Electrocardigram (06/13/25 20:59) Vital Signs Date Time Temp Pulse Resp B/P (MAP) Pulse Ox O2 Delivery O2 Flow Rate FiO2 06/13/25 21:22 97 06/13/25 20:44 98.1 100 16 136/79 99 98.1 06/13/25 20:42 97 Departure 1 Departure Time of Disposition: :26 Impression: Primary Impression: Chest pain Disposition: ADMITTED INPATIENT Condition: Stable Comments 45-year-old female with chest pain. Patient was seen her earlier today, she was put up for admission however patient eloped from the emergency department. She returns reporting continued chest pain. Labs and imaging from earlier today reviewed. Repeat EKG on arrival to the ED shows no ST changes. Critical Care Note Critical Care Time?: No Stability Stability form required: No Heart Score Heart Score: Heart Score Response (Comments) Value History Moderate Suspicious 1 EKG Normal 0 Age <45 0 Risk Factors >3 or Hx ASHD 2 Troponin N/A 0 Total 3 I personally scribed for MARGOTH GILLESPEI MD ([employer]) on 06/13/25 at 21:16. Electronically submitted by Donna De Jesus ([employer]). I personally scribed for MARGOTH GILLESPIE MD ([employer]) on 06/13/25 at 21:22. Electronically submitted by Donna De Jesus ([employer]). MARGOTH GILLESPIE MD Jun 13, 2025 21:16
[2025-06-13] MEDS ORDERED: ACETAMINOPHEN 325 MG TAB PO PRN (21:45)
[2025-06-13] MEDS ORDERED: ALBUTEROL SULF 2.5 MG/0.5ML(0.5%) NEB SOLN NEB PRN (21:45)
[2025-06-13] MEDS ORDERED: ONDANSETRON HCL 4 MG/2 ML VIAL IV PRN (21:45)
--- NOTE | 2025-06-13 21:45 | DVHHP2 ---
History of Present Illness Reason for Visit: Chest pain History of Present Illness 45-year-old female presents for evaluation of chest pain. Patient reports a one day history of substernal sharp chest pain that radiates to her left arm with associated nausea and shortness for breath. Patient had similar symptoms last week and was admitted but decided to leave AMA prior to being seen by the drafter construction. Past Medical History CVA, dyslipidemia, COPD, hypertension, seizures Past Surgical History Hysterectomy Family History Cancer Smoke: No ALCOHOL: none Drugs: None Lives: with Family Review of Systems Review of Systems Review of systems are currently negative otherwise addressed in HPI. Allergies: Coded Allergies: Celecoxib (Verified Allergy, Unknown, 06/07/25) Medications Current Medications Medications Dose Ordered Sig/[place] Route Start Time Stop Time Status Last Admin Dose Admin Aspirin 81 mg DAILY PO 06/14/25 10:00 UNV Atorvastatin Calcium 80 mg HS PO 06/13/25 22:00 UNV Exam Vital Signs Vital Signs Date Time Temp Pulse Resp B/P (MAP) Pulse Ox O2 Delivery O2 Flow Rate FiO2 06/13/25 21:22 97 06/13/25 20:44 98.1 16 136/79 99 98.1 Exam Gen: 45-year-old female in mild distress Skin: Warm, dry, normal color and texture, no rash. HEENT: Normocephalic atraumatic, mucous membranes moist and pink. Neck: Cervical and supraclavicular nodes normal without enlargement, trachea is midline, thyroid gland is normal without masses. Pulmonary: Clear to auscultation and percussion bilaterally. Cardiac: Regular rate and rhythm. No murmur Abdomen: Soft, nontender, nondistended, bowel sounds present all 4 quadrants, no guarding, no rigidity, no organomegaly. Extremities: No cyanosis, clubbing, no edema Neuro: Cranial nerves II through XII grossly intact, normal affect and speech, no focal motor deficits. Labs/Xrays ORDERING PHYSICIAN: NICOL NEVILLE MD PROCEDURE(s): CXRP - CHEST PORTABLE REASON: chest pain ORDER NUMBER(s): [id number], ACCESSION NUMBER(s): [id number] INDICATION: chest pain TECHNIQUE: Frontal view of the chest. COMPARISON: XY CHEST TWO VIEWS ROUTINE on DOS: 06/07/25 FINDINGS: Cardiomegaly. The heart and mediastinal contours are grossly unremarkable. There is no evidence of pleural disease. The lungs are clear. The bony structures of the chest are intact without fracture. IMPRESSION: 1. No evidence of acute disease. IS Sepsis Screen Date sepsis recognized/suspect: Jun 13, 2025 Time Sepsis recognized/suspect: 2047 Recent Procedure: No On Antibiotic Therapy: No Respiratory Rate >20: No Heart Rate >90: Yes Temp<36 C (96.8 F) or >38.3 C: No SBP <90 or MAP <65 mmHG: No New Acute Mental Status Change: No Is the patient on CPAP, BIPAP,: No Physician Orders Electrocardigram (06/13/25 20:59) Troponin-I Hs (06/13/25 21:26) Aspirin Tablet (06/14/25 10:00) Atorvastatin (Lipitor) (06/13/25 22:00) Levetiracetam Tablet (Keppra Tablet) (06/13/25 22:00) Clopidogrel Bisulfate (Plavix) (06/14/25 10:00) Furosemide Tablet (Lasix Tablet) (06/14/25 10:00) Lamotrigine Tablet (Lamictal Tablet) (06/13/25 22:00) Albuterol Medneb (Ventolin Medneb) (06/13/25 21:45) Admit (06/13/25 21:38) Ondansetron Hcl (Zofran) (06/13/25 21:45) Cardiac Diet-2gna,Lofat,Lochol (06/14/25 Breakfast) Echo 2d Mode Cardiac Dop (06/13/25 21:38) Condition: Fair (06/13/25 21:38) Acetaminophen Tablet (Tylenol Tablet) (06/13/25 21:45) Bedrest With Bathroom Privileg (06/13/25 21:38) Nitroglycerin Sublingual (Ntrostat Subli (06/13/25 21:45) Morphine Sulfate Injection (06/13/25 21:45) Stat Ekg For Chest Pain (06/13/25 21:38) Notify Md Of Changes From Base (06/13/25 21:38) 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 Plan discussed with: Patient My Orders Orders - CAMPOS DURBIN Procedure Category Date Status Time Aspirin Tablet PHA 06/14/25 Transmitted 10:00 Atorvastatin (Lipitor) PHA 06/13/25 Transmitted 22:00 Levetiracetam Tablet PHA 06/13/25 Transmitted (Keppra Tablet) 22:00 Clopidogrel Bisulfate PHA 06/14/25 Transmitted (Plavix) 10:00 Furosemide Tablet PHA 06/14/25 Transmitted (Lasix Tablet) 10:00 Lamotrigine Tablet PHA 06/13/25 Transmitted (Lamictal Tablet) 22:00 Albuterol Medneb PHA 06/13/25 Transmitted (Ventolin Medneb) 21:45 Admit ADMIT 06/13/25 Transmitted 21:38 Ondansetron Hcl PHA 06/13/25 Transmitted (Zofran) 21:45 Cardiac DIET 06/14/25 Transmitted Diet-2gna,Lofat,Lochol Breakfast Echo 2d Mode Cardiac US 06/13/25 Logged DOP 21:38 Condition: Fair [facility] 06/13/25 In Process 21:38 Acetaminophen Tablet PHA 06/13/25 Transmitted (Tylenol Tablet) 21:45 Bedrest With Bathroom GEORGINA 06/13/25 In Process Privileg 21:38 Nitroglycerin PHA 06/13/25 Transmitted Sublingual (Ntrostat 21:45 Morphine Sulfate PHA 06/13/25 Transmitted Injection 21:45 Stat Ekg For Chest [place]GIN[facility] 06/13/25 In Process Pain 21:38 Notify Of Changes [facility] 06/13/25 In Process From Base 21:38 Pocket And Pulley Machine Operator For [facility] 06/13/25 In Process 24 Hours 21:38 Emergency Dysrhythmia [facility] 06/13/25 In Process Protocol 21:38 Rhythm Strips Once [facility] 06/13/25 In Process Every Shift 21:38 Oxygen By Nasal RT 06/13/25 Transmitted Cannula 21:38 Date of Service: Jun 13, 2025 Billing Provider: CAMPOS DURBIN Common Visit Codes: [id number] INP/OBS CARE (HIGH) CAMPOS DURBIN Jun 13, 2025 21:45
[2025-06-14] VITALS (10 sets, daily range): BP systolic 102–129; BP diastolic 60–82; PULSE 63–93; RESP 16–20; TEMP 97.8–98.3; O2SAT 91–97
[2025-06-14] MEDS: ATORVASTATIN 20 MG TAB PO SCH ×2 (01:31→21:34)
[2025-06-14] MEDS: lamoTRIgine 100 MG TAB PO SCH ×2 (01:32→21:43)
[2025-06-14] MEDS: levETIRAcetam 500 MG TAB PO SCH ×2 (01:32→21:32)
[2025-06-14] MEDS ORDERED: OMEP1CAP70 PO (06:45)
[2025-06-14] MEDS ORDERED: ATOR-47 PO (06:45)
[2025-06-14] MEDS ORDERED: FENO160T PO (06:45)
[2025-06-14] MEDS ORDERED: HYDR-3682 PO (06:45)
[2025-06-14] MEDS ORDERED: MULT-1056 PO (06:45)
[2025-06-14] MEDS ORDERED: FURO20TA4 PO (06:45)
[2025-06-14] MEDS ORDERED: BENZ2TAB50 PO (06:45)
[2025-06-14] MEDS ORDERED: VER40T PO (06:45)
[2025-06-14] MEDS ORDERED: RISP1TAB63 PO (06:45)
[2025-06-14] MEDS ORDERED: LAMO200T34 PO (06:45)
[2025-06-14] MEDS ORDERED: PRAZ5CAP25 PO (06:45)
[2025-06-14] MEDS ORDERED: TRAZ300T13 PO (06:45)
[2025-06-14] MEDS ORDERED: LEVE750T3 PO (06:45)
[2025-06-14] MEDS ORDERED: ESCI1TAB37 PO (06:45)
[2025-06-14] MEDS ORDERED: CLOP75TA70 PO (06:45)
[2025-06-14] MEDS ORDERED: TOPI100T68 PO (06:45)
[2025-06-14] MEDS: CLOPIDOGREL BISULFATE 75 MG TAB PO SCH (08:22)
[2025-06-14] MEDS: FUROSEMIDE 20 MG TAB PO SCH (08:22)
[2025-06-14] MEDS: NITROGLYCERIN 0.4 MG SL TAB SL PRN (08:32)
[2025-06-14] MEDS: MORPHINE SULFATE INJ 2 MG/ml SYRG IV PRN (09:33)
[2025-06-14 11:44] LABS: Hematocrit 40.8 % (36.0-46.0); Hemoglobin 13.7 g/dL (12.2-16.2); Mean Corpuscular Hemoglobin 30.2 pg (28.0-32.0); Mean Corpuscular Volume 89.6 fL (80.0-100.0); Nucleated Red Blood Cells % 0.1 %
[2025-06-14 11:54] LABS: Alanine Aminotransferase 34 U/L (7-40); Albumin 4.4 g/dL (3.2-4.8); Alkaline Phosphatase 62 U/L (46-116); Anion Gap 9 (5-15); BUN/Creatinine Ratio 9.3 (10.0-20.0); Bilirubin, Total 0.5 mg/dL (0.2-1.0); Calcium 9.6 mg/dL (8.7-10.4); Carbon Dioxide 27 mmol/L (20-31); Chloride 105 mmol/L (98-107); Glucose 100 mg/dL (74-106); Potassium 3.8 mmol/L (3.5-5.1); Sodium 141 mmol/L (136-145); Total Protein 6.5 g/dL (5.7-8.2)
[2025-06-14 11:55] LABS: Blood Urea Nitrogen 8 mg/dL (9-23)
[2025-06-14 16:13] LABS: Urine Protein, UAD Negative (Negative)
[2025-06-14 16:18] LABS: Opiate Scree,Urine Neg (NEGATIVE)
[2025-06-14 16:25] LABS: Amphetamine Screen, Urine Neg (NEGATIVE); Barbiturate Scree,Urine Neg (NEGATIVE); Benzodiazephine Screen, Urine Neg (NEGATIVE); Cannabinoid Screen, Urine Neg (NEGATIVE); Cocaine Screen, Urine Neg (NEGATIVE); Phencyclidine Screen, Urine Neg (NEGATIVE)
--- NOTE | 2025-06-14 17:13 | DVH ---
BILATERAL LOWER EXTREMITY VENOUS DUPLEX REASON FOR EXAMINATION: high d dimer, bilateral lower extremity pain and swelling. rule out dvt COMPARISON: None TECHNIQUE: Using real-time freeze-frame technique with a high-frequency transducer, multiple longitu dinal and transverse sections were obtained. Simultaneous color flow and spectral Doppler imaging wa s performed. FINDINGS: There is good visualization of the deep venous system with no intraluminal filling defects identified. Normal venous compressibility is seen and there is flow augmentation. Color flow Doppler imaging is unremarkable. IMPRESSION: NO EVIDENCE OF DEEP VENOUS THROMBOSIS.
--- NOTE | 2025-06-14 17:14 | DVHPNRES ---
Progress Note Date Seen: Jun 14, 2025 Resident Creating Document: SALLIE GILLIAM RESIDENT Medical Necessity Reason Pt with a Central, PICC or Fol: No Subjective Review of Systems 45-year-old female with a history for TIA episodes in the last year, COPD on 2 L of oxygen at home, hypertension, seizure presents for evaluation of chest pain. Patient reports a one day history of substernal sharp chest pain that radiates to her left arm with associated nausea and shortness for breath. she rates it as 8/ 10 on intensity and reports it was increased with exertion. She tried taking 3 Tylenol tablets but it did not help which prompted her to come to the emergency. Patient had similar symptoms last week and was admitted but decided to leave AMA prior to being seen by the director of patient financial services. Past Medical History- CVA, dyslipidemia, COPD, hypertension, seizures Past Surgical History-Hysterectomy Family History- Reviewed and noncontributory to the management of this case Social history patient lives at home with family and denies drinking alcohol, any illicit drug abuse but says that she has vaping these days, trying to quit smoking and has been smoking half a pack of cigarettes per day for the last 24 years. ROS: 06/14/2025: Patient reports that she still has chest pain which is on and a and now rates it as 2/10 in intensity. She is quite anxious regarding hospitalization. We have ordered a CBC, CMP, EKG which came back normal. Echo results pending. We ordered a D-dimer study as she had right leg slightly swollen than the left. D-dimer levels were slightly elevated to 1.30. A venous Doppler of the bilateral feet has been ordered, pending. Objective vital signs Vital Sign Date Time Temp Pulse Resp B/P (MAP) Pulse Ox O2 Delivery O2 Flow Rate FiO2 06/14/25 15:44 118/73 06/14/25 13:00 98.3 87 18 91 98.3 06/14/25 08:00 21 06/14/25 07:42 Room Air* 0 Total Intake and Output 06/13/25 06/13/25 06/14/25 15:00 23:00 07:00 Intake Total 0 ml Balance 0 ml medications Current Medications Medications Dose Ordered Sig/[place] Route Start Time Stop Time Status Last Admin Dose Admin Aspirin 81 mg DAILY PO 06/14/25 10:00 06/14/25 08:22 81 MG Atorvastatin Calcium 80 mg HS PO 06/13/25 22:00 06/14/25 01:31 80 MG Levetiracetam 750 mg BID PO 06/13/25 22:00 06/14/25 08:21 750 MG Clopidogrel Bisulfate 75 mg DAILY PO 06/14/25 10:00 06/14/25 08:22 75 MG Furosemide 20 mg DAILY PO 06/14/25 10:00 06/14/25 08:22 20 MG Lamotrigine 200 mg Q12HR PO 06/13/25 22:00 06/14/25 08:21 200 MG Albuterol 2.5 mg Q6HPRN PRN NEB 06/13/25 21:45 Ondansetron HCl 4 mg Q4HP PRN IV 06/13/25 21:45 Acetaminophen 650 mg Q6HP PRN PO 06/13/25 21:45 Nitroglycerin 0.4 mg Q5MINP PRN SL 06/13/25 21:45 06/14/25 15:44 0.4 MG Morphine Sulfate 2 mg Q30M PRN IV 06/13/25 21:45 06/14/25 09:33 2 MG Examination Gen: 45-year-old female in mild distress, Anxious Skin: Warm, dry, normal color and texture, no rash. HEENT: Normocephalic atraumatic, mucous membranes moist and pink. Neck: Cervical and supraclavicular nodes normal without enlargement, trachea is midline, thyroid gland is normal without masses. Pulmonary: Clear to auscultation and percussion bilaterally. Cardiac: Regular rate and rhythm. No murmur, tenderness on chest palpation Abdomen: Soft, nontender, nondistended, bowel sounds present all 4 quadrants, no guarding, no rigidity, no organomegaly. Extremities: No cyanosis, clubbing, Right extremity slightly swollen compared to the left +1 pitting Neuro: Cranial nerves II through XII grossly intact, normal affect and speech, no focal motor deficits. laboratory and microbiology Laboratory Tests 06/14/25 10:57 Test 06/14/25 10:57 Range/Units Serum Glucose 100 74-106 mg/dL Labs and/or images reviewed: Labs reviewed by me, Image(s) reviewed by me Problem List/Assessment/Plan Problem List/Assessment/Plan #Chest pain, rule out ACS #?Panic attack -EKG sign -echocardiogram -aspirin 81 mg daily -Clopidogrel 75 mg daily -Morphine sulfate, nitroglycerin PRN -Acetaminophen 650 mg q.6 PRN #? DVT -D-dimer 1.30 -Venous Doppler of bilateral legs ordered #Hypertension -We consult home medication #seizure disorder -home medication Keppra, topiramate, lamotrigine continued # anxiety disorder Continue hydroxyzine #Insomnia -Trazodone continued # history of depressive disorder Continue home medication risperidone, escitalopram, benztropine # obesity BMI 48.4 - counseled regarding lifestyle modification, need of exercise, healthy diet GI prophylaxis: DVT prophylaxis: Diet: Goals of care discussed with the patient for more than 27 minutes: Full code status Case discussed with Dr. Wolfe, patient and nurse. Plan discussed with: Patient, Other (rn) My Orders My Orders Orders - SALLIE GILLIAM Procedure Category Date Status Time Bilat Lower Dvt US 06/14/25 Taken 15:32 Date of Service: Jun 14, 2025 Billing Provider: VIVIENNE WOLFE MD Common Visit Codes: [id number] INP/OBS CARE(HIGH) SALLIE GILLIAM Jun 14, 2025 17:14 VIVIENNE WOLFE MD Jun 14, 2025 17:58
[2025-06-14] MEDS ORDERED: PATIENTS OWN MEDICATION (Hydroxyzine Hcl 1 TAB) PO SCH (18:00)
--- NOTE | 2025-06-14 18:54 | DVHSR ---
APPROVED REPORT EXAM: LIMITED Two-dimensional and M-mode echocardiogram with Doppler and color Doppler. Blood Pressure: 114/69 mmHg INDICATION Chest Pain RISK FACTORS Obesity: Height: 5'5, Weight: 290 DIMENSIONS LVDd4.0 (3.8-5.7cm)LA (2D)3.5 (1.9-4.0cm)Aortic Root2.7 (2.0-3.7cm) LVDs3.0 (2.5-4.0cm)LA (MM) (1.9-4.0cm)Aortic Cusp Exc1.8 (1.5-2.0cm) EF (%) 49.0 (55-70%)Rt. Atrium (1.9-4.0cm)Asc. Aorta2.9 cm IVSd0.8 (0.7-1.1cm)RV (D)2.0 (1.8-2.4cm) PWd1.1 (0.7-1.1cm) Mitral Valve MitralMitral Stenosis E wave0.84m/sMV Mean GR.mmHg A wave0.66m/sMV Peak GR.46mmHg E/A ratio1.32D MVAcm2 DECEL [id number] 1/2 Tim[place] Aortic Valve Aortic ValveAortic Stenosis V10.63m/Rosi Mean GR.2mmHg V21.10m/Rosi Peak GR.5mmHg LVOT Diameter2.3 (1.8-2.4cm)Doppler AVA2.38cm2 Other Information Quality : Technically LimitedRhythm : Technically limited study due to body habitus.patient position. Conclusion LOW NORMAL LV EF AND IS 50% NORMAL VALVES NO EFFUSION NORMAL RV FUNCTION
[2025-06-14] MEDS: BENZTROPINE MESY 0.5 MG TAB PO SCH (21:37)
[2025-06-14] MEDS: hydrOXYzine 25 MG TAB or CAP PO SCH (21:40)
[2025-06-14] MEDS: risperiDONE 1 MG TAB PO SCH (21:41)
[2025-06-14] MEDS: TOPIRAMATE 100 MG TAB PO SCH (21:42)
[2025-06-14] MEDS ORDERED: LAMOTRIGINE 100 MG PO SCH (22:00)
[2025-06-14] MEDS ORDERED: PATIENTS OWN MEDICATION (Benztropine Mesylate 1 TAB) PO SCH (22:00)
[2025-06-14] MEDS ORDERED: PATIENTS OWN MEDICATION (Trazodone Hcl 1 TAB) PO SCH (22:00)
[2025-06-14] MEDS ORDERED: PATIENTS OWN MEDICATION (Levetiracetam 1 TAB) PO SCH (22:00)
[2025-06-14] MEDS: PRAZOSIN HCL 1 MG CAP PO SCH (23:34)
[2025-06-15] VITALS (7 sets, daily range): BP systolic 113–128; BP diastolic 70–80; PULSE 60–98; RESP 16–24; TEMP 37.1; O2SAT 92–100
[2025-06-15] MEDS: FUROSEMIDE 20 MG TAB PO SCH (08:46)
[2025-06-15] MEDS: CLOPIDOGREL BISULFATE 75 MG TAB PO SCH (08:47)
[2025-06-15] MEDS: MULTIPLE VITAMIN TAB PO SCH (08:47)
[2025-06-15] MEDS: CITALOPRAM HYDROBR 20 MG TAB PO SCH (08:48)
[2025-06-15] MEDS ORDERED: PATIENTS OWN MEDICATION (Atorvastatin Calcium 1 TAB) PO SCH (10:00)
[2025-06-15] MEDS: POLYETHYLENE GLYCOL 17 GM PWDR PO ONE (10:55)
[2025-06-15] MEDS: MORPHINE SULFATE INJ 2 MG/ml SYRG IV PRN (12:16)
--- NOTE | 2025-06-15 13:08 | DVHINCON2 ---
GI Consult Consult Note GI consult note Date of Consultation: 06/15/2024 Chief Complaint: Anemia Referring Physician: Dr. Landin H&P: 45-year-old admitted for evaluation of abdominal pain Patient denies abdominal. Patient has persistent nausea for the past two months. No vomiting. Takes Zofran as needed which helps No melena or red blood in stool. No hematemesis. No EGD in past No history of GERD Past Medical History: CVA, dyslipidemia, COPD, hypertension, seizures Past Surgical History: Hysterectomy Social History: NO smoking, drinking ETOH and use of illegal drugs. Family History: Noncontributory Review of Systems: Constitutional: no fever, chill, weight loss HEENT: no eye pain, no hearing loss, no oral lesion, no scleral icterus Heart: no chest pain, no chest pressure Lung: no cough, no dyspnea with exertion Abdomen: see HPI Physical exam: General: NAD, AAOX3 Chest: lung tay clear to auscultation Heart: RRR, no murmur Abdomen: no tenderness to palpation, +BS Labs: Labs Test 06/14/25 15:00 06/14/25 10:57 06/13/25 21:51 Range/Units Urine Color Light-yellow Yellow Urine Clarity Clear Clear Urine pH 5.0 5.0-9.0 Urine Specific [place] 1.013 1.001-1.035 Urine Protein Negative Negative Urine Ketones Negative Negative Urine Blood Negative Negative /uL Urine Nitrite Negative Negative Urine Bilirubin Negative Negative Urine Urobilinogen Normal Negative mg/dL Urine Leukocyte Esterase Negative Negative /uL Urine RBC 1 0 - 4 /hpf Urine Microscopic WBC 4 0-5 /HPF Urine Squamous Epithelial Cells Few <5 /hpf Urine Bacteria None seen None Seen /hpf Urine Mucus Few None Seen Urine Glucose Normal Normal mg/dL Urine Opiates Screen Neg NEGATIVE Urine Fentanyl Screen Neg NEGATIVE Urine Barbiturates Screen Neg NEGATIVE Urine Phencyclidine Screen Neg NEGATIVE Urine Amphetamines Screen Neg NEGATIVE Urine Benzodiazepines Screen Neg NEGATIVE Urine Cocaine Screen Neg NEGATIVE Urine Cannabinoids Screen Neg NEGATIVE White Blood Count 9.3 4.4-10.8 10^3/uL Red Blood Count 4.55 4.0-5.20 10^6/uL Hemoglobin 13.7 12.2-16.2 g/dL Hematocrit 40.8 36.0-46.0 % Mean Corpuscular Volume 89.6 80.0-100.0 fL Mean Corpuscular Hemoglobin 30.2 28.0-32.0 pg Mean Corpuscular Hemoglobin Concent 33.7 32.0-36.0 g/dL Red Cell Distribution Width 14.3 11.8-14.3 % Platelet Count 287 140-450 10^3/uL Mean Platelet Volume 7.5 6.9-10.8 fL Neutrophils (%) (Auto) 56.8 37.0-80.0 % Lymphocytes (%) (Auto) 26.9 10.0-50.0 % Monocytes (%) (Auto) 9.8 0.0-12.0 % Eosinophils (%) (Auto) 5.7 0.0-7.0 % Basophils (%) (Auto) 0.8 0.0-2.0 % Neutrophils # (Auto) 5.3 1.6-8.6 10 ^3/uL Lymphocytes # (Auto) 2.5 0.4-5.4 10 ^3/uL Monocytes # (Auto) 0.9 0-1.3 10 ^3/uL Eosinophils # (Auto) 0.5 0-0.8 10 ^3/uL Basophils # (Auto) 0.1 0-0.2 10 ^3/uL Nucleated Red Blood Cells 0.1 % D-Dimer, Quantitative 1.30 H 0.0-0.49 mg/L FEU Sodium Level 141 136-145 mmol/L Potassium Level 3.8 3.5-5.1 mmol/L Chloride Level 105 98-107 mmol/L Carbon Dioxide Level 27 20-31 mmol/L Anion Gap 9 5-15 Blood Urea Nitrogen 8 L 9-23 mg/dL Creatinine 0.86 0.550-1.02 mg/dL Glomerular Filtration Rate Calc 85 >90 mL/min BUN/Creatinine Ratio 9.3 L 10.0-20.0 Serum Glucose 100 74-106 mg/dL Calcium Level 9.6 8.7-10.4 mg/dL Total Bilirubin 0.5 0.2-1.0 mg/dL Aspartate Amino Transferase (AST) 21 13-40 U/L Alanine Aminotransferase (ALT) 34 7-40 U/L Alkaline Phosphatase 62 46-116 U/L B-Type Natriuretic Peptide 6.69 0-100 pg/mL Total Protein 6.5 5.7-8.2 g/dL Albumin 4.4 3.2-4.8 g/dL Troponin I High Sensitivity < 3 L </=34 ng/L Imaging: Assessment: Chest pain Persistent nausea Plan: Discussed with Dr. Garcia Possible EGD discussed with patient if persistent symptoms of nausea continues and after getting clearance from Cardiology Patient would like to follow-up on an outpatient basis for this procedure and would like to be discharged home at this time Continue Zofran Protonix Thank you for this consult Date of Service: Jun 15, 2025 Billing Provider: UMANG WILLETT Common Visit Codes: CONSULT ONLY Consultation Codes: [id number] CONSULT <45MIN UMANG WILLETT Jun 15, 2025 13:08
--- NOTE | 2025-06-15 14:43 | DVHDSRES ---
Discharge Summary Date of Admission Resident Creating Document: SALLIE GILLIAM RESIDENT Jun 13, 2025 at 21:38 Date of Discharge: Jun 15, 2025 Admitting Diagnosis #Chest pain, rule out ACS Labs/Diagnostic Data: Laboratory Results Test 06/14/25 15:00 06/14/25 10:57 06/13/25 21:51 Urine Color Light-yellow (Yellow) Urine Clarity Clear (Clear) Urine pH 5.0 (5.0-9.0) Urine Specific [place] 1.013 (1.001-1.035) Urine Protein Negative (Negative) Urine Ketones Negative (Negative) Urine Blood Negative /uL (Negative) Urine Nitrite Negative (Negative) Urine Bilirubin Negative (Negative) Urine Urobilinogen Normal mg/dL (Negative) Urine Leukocyte Esterase Negative /uL (Negative) Urine RBC 1 /hpf (0 - 4) Urine Microscopic WBC 4 /HPF (0-5) Urine Squamous Epithelial Cells Few /hpf (<5) Urine Bacteria None seen /hpf (None Seen) Urine Mucus Few (None Seen) Urine Glucose Normal mg/dL (Normal) Urine Opiates Screen Neg (NEGATIVE) Urine Fentanyl Screen Neg (NEGATIVE) Urine Barbiturates Screen Neg (NEGATIVE) Urine Phencyclidine Screen Neg (NEGATIVE) Urine Amphetamines Screen Neg (NEGATIVE) Urine Benzodiazepines Screen Neg (NEGATIVE) Urine Cocaine Screen Neg (NEGATIVE) Urine Cannabinoids Screen Neg (NEGATIVE) White Blood Count 9.3 10^3/uL (4.4-10.8) Red Blood Count 4.55 10^6/uL (4.0-5.20) Hemoglobin 13.7 g/dL (12.2-16.2) Hematocrit 40.8 % (36.0-46.0) Mean Corpuscular Volume 89.6 fL (80.0-100.0) Mean Corpuscular Hemoglobin 30.2 pg (28.0-32.0) Mean Corpuscular Hemoglobin Concent 33.7 g/dL (32.0-36.0) Red Cell Distribution Width 14.3 % (11.8-14.3) Platelet Count 287 10^3/uL (140-450) Mean Platelet Volume 7.5 fL (6.9-10.8) Neutrophils (%) (Auto) 56.8 % (37.0-80.0) Lymphocytes (%) (Auto) 26.9 % (10.0-50.0) Monocytes (%) (Auto) 9.8 % (0.0-12.0) Eosinophils (%) (Auto) 5.7 % (0.0-7.0) Basophils (%) (Auto) 0.8 % (0.0-2.0) Neutrophils # (Auto) 5.3 10 ^3/uL (1.6-8.6) Lymphocytes # (Auto) 2.5 10 ^3/uL (0.4-5.4) Monocytes # (Auto) 0.9 10 ^3/uL (0-1.3) Eosinophils # (Auto) 0.5 10 ^3/uL (0-0.8) Basophils # (Auto) 0.1 10 ^3/uL (0-0.2) Nucleated Red Blood Cells 0.1 % D-Dimer, Quantitative 1.30 mg/L FEU (0.0-0.49) Sodium Level 141 mmol/L (136-145) Potassium Level 3.8 mmol/L (3.5-5.1) Chloride Level 105 mmol/L (98-107) Carbon Dioxide Level 27 mmol/L (20-31) Anion Gap 9 (5-15) Blood Urea Nitrogen 8 mg/dL (9-23) Creatinine 0.86 mg/dL (0.550-1.02) Glomerular Filtration Rate Calc 85 mL/min (>90) BUN/Creatinine Ratio 9.3 (10.0-20.0) Serum Glucose 100 mg/dL (74-106) Calcium Level 9.6 mg/dL (8.7-10.4) Total Bilirubin 0.5 mg/dL (0.2-1.0) Aspartate Amino Transferase (AST) 21 U/L (13-40) Alanine Aminotransferase (ALT) 34 U/L (7-40) Alkaline Phosphatase 62 U/L (46-116) B-Type Natriuretic Peptide 6.69 pg/mL (0-100) Total Protein 6.5 g/dL (5.7-8.2) Albumin 4.4 g/dL (3.2-4.8) Troponin I High Sensitivity < 3 ng/L (</=34) Other Laboratory Tests 06/14/25 10:57 Brief Hx & Hospital Course: 45-year-old female with a history for TIA episodes in the last year, COPD on 2 L of oxygen at home, hypertension, seizure presents for evaluation of chest pain. Patient reports a one day history of substernal sharp chest pain that radiates to her left arm with associated nausea and shortness for breath. she rates it as 8/ 10 on intensity and reports it was increased with exertion. She tried taking 3 Tylenol tablets but it did not help which prompted her to come to the emergency. Patient had similar symptoms last week and was admitted but decided to leave AMA prior to being seen by the machinist outside. Past Medical History- CVA, dyslipidemia, COPD, hypertension, seizures Past Surgical History-Hysterectomy Family History- Reviewed and noncontributory to the management of this case Social history patient lives at home with family and denies drinking alcohol, any illicit drug abuse but says that she has vaping these days, trying to quit smoking and has been smoking half a pack of cigarettes per day for the last 24 years. Brief history of hospitalization: Patient came in with chest pain, we did an EKG which came back normal and an Echocardiogram was done which showed ejection fraction of 50% and was normal. We gave her aspirin 81 mg daily and clopidogrel 75 mg daily. for her pain we gave her morphine sulfate and sublingual nitroglycerin which helped resolve her pain. We also put acetaminophen 650 mg q.6 PRN. On examination I noticed that her right leg was slightly swollen in the left which is why added a D-dimer which was 1.30 and a venous Doppler of the bilateral legs was ordered which came back negative for DVT. Patient also has hypertension so we resumed her home medication and for seizure disorder we continued all her home medications Keppra, topiramate, lamotrigine as well. For patient's history of anxiety disorder and insomnia as well as depressive disorder we continued all her home medications. Patient is obese with a BMI of 48.4 and we have counseled her regarding lifestyle modification, need of exercise, healthy diet. During hospitalization patient still had a few episodes of chest pain which she said were similar to the one on presentation to the hospital. She was given morphine for the pain. Patient was quite anxious regarding the pain and we counseled her that her tests were normal for EKG and echocardiogram. The pain is likely because of anxiety disorder that she has and patient communicated understanding. Patient also complained of continuous nausea, gastro consult suggested an EGD to be done outpatient. Patient has verbalized understanding. Patient is now stable for discharge and she does not have any chest pain now. We have counseled her to continue all home medications for depression, anxiety, hypertension, COPD, seizures and her CVA medications. Patient verbalized understanding and has agreed with the discharge plan. Gen: 45-year-old female in mild distress, Anxious Skin: Warm, dry, normal color and texture, no rash. HEENT: Normocephalic atraumatic, mucous membranes moist and pink. Neck: Cervical and supraclavicular nodes normal without enlargement, trachea is midline, thyroid gland is normal without masses. Pulmonary: Clear to auscultation and percussion bilaterally. Cardiac: Regular rate and rhythm. No murmur Abdomen: Soft, nontender, nondistended, bowel sounds present all 4 quadrants, no guarding, no rigidity, no organomegaly. Extremities: No cyanosis, clubbing, Right extremity slightly swollen compared to the left +1 pitting Neuro: Cranial nerves II through XII grossly intact, normal affect and speech, no focal motor deficits. psychological: Normal mental status, slightly anxious Operations or Procedures BILATERAL LOWER EXTREMITY VENOUS DUPLEX REASON FOR EXAMINATION: high d dimer, bilateral lower extremity pain and swelling. rule out dvt IMPRESSION: NO EVIDENCE OF DEEP VENOUS THROMBOSIS. EXAM: LIMITED Two-dimensional and M-mode echocardiogram with Doppler and color Doppler. Blood Pressure: 114/69 mmHg INDICATION Chest Pain RISK FACTORS Obesity: Height: 5'5, Weight: 290 DIMENSIONS LVDd 4.0 (3.8-5.7cm) LA (2D) 3.5 (1.9-4.0cm) Aortic Root 2.7 (2.0- 3.7cm) LVDs 3.0 (2.5-4.0cm) LA (MM) (1.9-4.0cm) Aortic Cusp Exc 1.8 (1.5- 2.0cm) EF (%) 49.0 (55-70%) Rt. Atrium (1.9-4.0cm) Asc. Aorta 2.9 cm IVSd 0.8 (0.7-1.1cm) RV (D) 2.0 (1.8-2.4cm) PWd 1.1 (0.7-1.1cm) Mitral Valve Mitral Mitral Stenosis E wave 0.84m/s MV Mean GR. mmHg A wave 0.66m/s MV Peak GR. 46mmHg E/A ratio 1.3 2D MVA cm2 DECEL Time 216ms PRESS 1/2 Time ms Aortic Valve Aortic Valve Aortic Stenosis V1 0.63m/s AO Mean GR. 2mmHg V2 1.10m/s AO Peak GR. 5mmHg LVOT Diameter 2.3 (1.8-2.4cm) Doppler MARIE 2.38cm2 Other Information Quality : Technically Limited Rhythm : Technically limited study due to body habitus.patient position. Conclusion LOW NORMAL LV EF AND IS 50% NORMAL VALVES NO EFFUSION NORMAL RV FUNCTION SIGNED BY: YOHANNES GILLETTE MD SIGNED DATE/TIME: 06/14/25 3189 Condition at Discharge: Stable Final Diagnosis/Problems List #Chest pain, ruled out ACS, likely due to panic attack/anxiety #right leg swelling, DVT ruled out #hypertension #seizure disorder #anxiety disorder #insomia #depressive disorder #COPD, not under exacerbation #obesity BMI 48.4 Discharge Disposition: Home Discharge Instruct/Medications Diet: Consistent carbohydrate, Cardiac 2g Na,low cholest Activity: No Restrictions, As Tolerated Follow Up/Referral: followup with pcp in 10 days followup with discharge clinic within 1 week Medications: resume all home medications tylenol 1 tab as needed Scheduled Atorvastatin Calcium (Atorvastatin Calcium), 1 TAB PO DAILY, (Reported) Benztropine Mesylate (Benztropine Mesylate), 1 TAB PO BID, (Reported) Clopidogrel Bisulfate (Clopidogrel), 1 TAB PO DAILY, (Reported) Escitalopram Oxalate (Escitalopram Oxalate), 1 TAB PO DAILY, (Reported) Fenofibrate (Fenofibrate), 1 TAB PO DAILY, (Reported) Furosemide (Furosemide), 1 TAB PO DAILY, (Reported) Hydroxyzine Hcl (Hydroxyzine Hcl), 1 TAB PO QID, (Reported) Lamotrigine (Lamotrigine), 100 MG PO BID, (Reported) Levetiracetam (Levetiracetam), 1 TAB PO BID, (Reported) Multiple Vitamin (Multivitamin), 1 TAB PO DAILY, (Reported) Omeprazole (Omeprazole Dr), 1 CAP PO DAILY, (Reported) Prazosin HCl (Prazosin Hydrochloride), 1 CAP PO HS, (Reported) Risperidone (Risperidone), 1 TAB PO BID, (Reported) Topiramate (Topiramate), 1 TAB PO BID, (Reported) Trazodone Hcl (Trazodone Hcl), 1 TAB PO HS, (Reported) Verapamil Hcl (Calan), 1 PO DAILY, (Reported) Discharge Statement: "Patient was advised to return to the ER or call 911 if any headaches, dizziness, shortness of breath, chest pain, abdominal pain, bleeding, fevers, or worsening of medical condition. Patient was counseled about treatment plan, medications, possible side effects, patientverbalized understanding. All questions were answered to the best of my ability. This discharge took greater then 30 minutes in planning, reviewing documentation, counseling the patient, and discussing with other team members." ASSESSMENT ASSESSMENT Assessment #Chest pain and nausea, ruled out ACS, likely due to panic attack/ anxiety Date of Service: Jun 15, 2025 Billing Provider: VIVIENNE CALLOWAY MD Common Visit Codes: [id number] DISCH DAY >30min SALLIE GILLIAM RESIDENT Jun 15, 2025 14:43 VIVIENNE CALLOWAY MD Jun 16, 2025 12:01
== END 2025-06-15 14:56 | disposition home or self-care (01) | DRG 756 ==
LOC: EDBD 20:42 → ER 20:42 → OVERFLOW 21:38 → TELE-WESTW 21:42 → WEST WING 06-15 09:23
PROVIDERS: ADMIT Internal Medicine; ATTEND Internal Medicine
DX: F41.0 Panic disorder [episodic paroxysmal anxiety] (principal); G40.909 Epilepsy, unspecified, not intractable, without status epilepticus; E66.01 Morbid (severe) obesity due to excess calories; E78.5 Hyperlipidemia, unspecified; I10 Essential (primary) hypertension; J44.9 Chronic obstructive pulmonary disease, unspecified; G47.00 Insomnia, unspecified; F32.A Depression, unspecified; Z86.73 Personal history of transient ischemic attack (TIA), and cerebral infarction without residual deficits; Z90.710 Acquired absence of both cervix and uterus; Z68.42 Body mass index [BMI] 45.0-49.9, adult; Z79.899 Other long term (current) drug therapy
CPT/HCPCS: 36415; 80053; 80307; 81001; 83880; 84484; 85025; 85379; 93306; 93970; G0378

== ENCOUNTER 2025-08-04 13:41 | Inpatient (IN) | payer MEDICAID ==
[~2025-08-04] VITALS: Ht 165.1 cm; Wt 103.1 kg
[~2025-08-04 13:41] MED LIST: ATOR-47 PO; BENZ2TAB50 PO; CLOP75TA70 PO; ESCI1TAB37 PO; FENO160T PO; FURO20TA4 PO; HYDR-3682 PO; LAMO200T34 PO; LEVE750T3 PO; MULT-1056 PO; OMEP1CAP70 PO; PRAZ5CAP25 PO; RISP1TAB63 PO; TOPI100T68 PO; TRAZ300T13 PO; VER40T PO
--- NOTE | 2025-08-04 13:58 | ED.PDOC ---
History of Present Illness HPI Comments This is a 45 year old female presenting to the ED with chief complaint of flank and chest pain. Patient reports that she has been experiencing 6/10 left sided flank pain for the past 6 days with associated 6/10 left sided chest pain for the past 30 minutes. Patient relays that she has also had SOB and nausea since symptom onset. Patient states she has history of COPD, currently on 3L of O2 at home, and kidney stones. Patient denies any vomiting, diarrhea, abdominal pain, dizziness, fever, chills, or dysuria. Chief Complaint: Flank Pain Time Seen by MD: 13:55 Reviewed Notes: Nurses Notes, Medications, Allergies Allergies: Coded Allergies: Celecoxib (Verified Allergy, Unknown, 06/07/25) Uncoded Allergies: NITRO (Allergy, Unknown, 08/04/25) Home Meds Reported Medications Verapamil Hcl (Calan) 40 Mg Tb, 1 PO DAILY 06/14/25 Risperidone (Risperidone) 1 Mg Tab, 1 TAB PO BID 06/14/25 Clopidogrel Bisulfate (CLOPIDOGREL) 75 Mg Tab, 1 TAB PO DAILY 06/14/25 Fenofibrate (Fenofibrate) 160 Mg Tab, 1 TAB PO DAILY 06/14/25 Benztropine Mesylate (Benztropine Mesylate) 2 Mg Tab, 1 TAB PO BID 06/14/25 Furosemide (Furosemide) 20 Mg Tab, 1 TAB PO DAILY 06/14/25 Multiple Vitamin (Multivitamin) 1 Tab Tab, 1 TAB PO DAILY 06/14/25 Atorvastatin Calcium (ATORVASTATIN CALCIUM) 80 Mg Tab, 1 TAB PO DAILY 06/14/25 Escitalopram Oxalate (ESCITALOPRAM OXALATE) 20 Mg Tab, 1 TAB PO DAILY 06/14/25 Omeprazole (Omeprazole Dr) 20 Mg Cap, 1 CAP PO DAILY 06/14/25 Prazosin HCl (Prazosin Hydrochloride) 5 Mg Cap, 1 CAP PO HS 06/14/25 Trazodone Hcl (Trazodone Hcl) 300 Mg Tab, 1 TAB PO HS 06/14/25 Hydroxyzine Hcl (Hydroxyzine Hcl) 25 Mg Tab, 1 TAB PO QID 06/14/25 Lamotrigine (Lamotrigine) 200 Mg Tab, 100 MG PO BID 06/14/25 Topiramate (Topiramate) 100 Mg Tab, 1 TAB PO BID 06/14/25 Levetiracetam (Levetiracetam) 750 Mg Tab, 1 TAB PO BID 06/14/25 Information Source: Patient Mode of Arrival: Wheelchair Severity: Moderate Timing: Days Duration: Since onset Prehospital treatment: None Past Medical History PAST MEDICAL HISTORY: COPD, CVA, High Lipids, HTN, Kidney Stones, Seizures, TIA Surgical History: Hysterectomy Surgical History (Other): Genital reconstruction 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 Family History Family History: Reviewed,noncontributory to illness, Family hx of Cancer Social History Smoker: Other (Vape) Alcohol: Denies ETOH Use Drugs: Denies Drug Use Lives In: Home Constitutional: denies: chills, diaphoresis, fatigue, fever, malaise, sweats, weakness, others EENTM: denies: blurred vision, double vision, ear bleeding, ear discharge, ear drainage, ear pain, ear ringing, eye pain, eye redness, hearing loss, mouth pain, mouth swelling, nasal discharge, nose bleeding, nose congestion, nose pain, photophobia, tearing, throat pain, throat swelling, voice changes, others Respiratory: reports: shortness of breath; denies: cough, hemoptysis, orthopnea, SOB at rest, SOB with excertion, stridor, wheezing, others Cardiovascular: reports: chest pain; denies: dizzy spells, diaphoresis, Dyspnea on exertion, edema, irregular heart beat, left arm pain, lightheadedness, pa lpitations, PND, syncope, others Gastrointestinal: reports: nausea; denies: abdomen distended, abdominal pain, blood streaked bowels, constipated, diarrhea, dysphagia, difficulty swallowing, hematemesis, melena, poor appetite, poor fluid intake, rectal bleeding, rectal pain, vomiting, others Genitourinary: reports: flank pain; denies: abnormal vagina bleeding, burning, dyspareunia, dysuria, frequency, hematuria, incontinence, pain, , vagina discharge, urgency, others Neurological: denies: dizziness, fainting, headache, left sided numbness, left sided weakness, numbness, paresthesia, pre-existing deficit, right sided numbness, right sided weakness, seizure, speech problems, tingling, tremors, weakness, others Musculoskeletal: denies: back pain, gout, joint pain, joint swelling, muscle pain, muscle stiffness, neck pain, others Integumetry: denies: bruises, change in color, change in hair/nails, dryness, laceration, lesions, lumps, rash, wounds, others Allergic/Immunocompromised: denies: Difficulty Healing, Frequent Infections, Hives, Itching, others Hematologic/Lymphatic: denies: anemia, blood clots, easy bleeding, easy bruising, swollen glands, others Endocrine: denies: excessive hunger, excessive sweating, excessive thirst, excessive urination, flushing, intolerance to cold, intolerance to heat, unexplained weight gain, unexplained weight loss, others Psychiatric: denies: anxiety, bipolar disorder, depression, hopeless, panic disorder, schizophrenia, sleepless, suicidal, others All Other Systems: Reviewed and Negative Physical Exam General Appearance: Moderate Distress, Obese HEENT: Normal ENT Inspection, Pharynx Normal, TMs Normal Neck: Full Range of Motion, Non-Tender, Normal, Normal Inspection Respiratory: Chest Non-Tender, Lungs Clear, No Accessory Muscle Use, No Respiratory Distress, Normal Breath Sounds Cardiovascular: No Edema, No JVD, No Murmur, No Gallop, Normal Peripheral Pulses, Regular Rate/Rhythm Breast Exam: Deferred Gastrointestinal: LLQ, LUQ, No Organomegaly, No Pulsatile Mass, Normal Bowel Sounds, Soft, Tenderness Genitalia: Deferred Pelvic: Deferred Rectal: Deferred Extremities: No calf tenderness, Normal capillary refill, No pedal edema Musculoskeletal : Apperance: Normal Neurologic: Alert, 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 Was a procedure done?: No Differential Dx Considerations may include: Colitis, diverticulitis, generalized weakness, dehydration, gallstones, ch olecystitis X-Ray, Labs, Meds, VS Vital Signs Date Time Temp Pulse Resp B/P (MAP) Pulse Ox O2 Delivery O2 Flow Rate FiO2 08/04/25 13:43 97.3 86 20 138/66 97 97.3 Lab Test 08/04/25 14:21 Range/Units White Blood Count 11.3 H 4.4-10.8 10^3/uL Red Blood Count 4.43 4.0-5.20 10^6/uL Hemoglobin 13.5 12.2-16.2 g/dL Hematocrit 39.9 36.0-46.0 % Mean Corpuscular Volume 90.2 80.0-100.0 fL Mean Corpuscular Hemoglobin 30.4 28.0-32.0 pg Mean Corpuscular Hemoglobin Concent 33.7 32.0-36.0 g/dL Red Cell Distribution Width 13.9 11.8-14.3 % Platelet Count 339 140-450 10^3/uL Mean Platelet Volume 7.0 6.9-10.8 fL Neutrophils (%) (Auto) 70.8 37.0-80.0 % Lymphocytes (%) (Auto) 19.3 10.0-50.0 % Monocytes (%) (Auto) 6.9 0.0-12.0 % Eosinophils (%) (Auto) 2.5 0.0-7.0 % Basophils (%) (Auto) 0.5 0.0-2.0 % Neutrophils # (Auto) 8.0 1.6-8.6 10 ^3/uL Lymphocytes # (Auto) 2.2 0.4-5.4 10 ^3/uL Monocytes # (Auto) 0.8 0-1.3 10 ^3/uL Eosinophils # (Auto) 0.3 0-0.8 10 ^3/uL Basophils # (Auto) 0.1 0-0.2 10 ^3/uL Nucleated Red Blood Cells 0.0 % Sodium Level 144 136-145 mmol/L Potassium Level 3.7 3.5-5.1 mmol/L Chloride Level 107 98-107 mmol/L Carbon Dioxide Level 28 20-31 mmol/L Anion Gap 9 5-15 Blood Urea Nitrogen 14 9-23 mg/dL Creatinine 0.93 0.550-1.02 mg/dL Glomerular Filtration Rate Calc 78 >90 mL/min BUN/Creatinine Ratio 15.1 10.0-20.0 Serum Glucose 94 74-106 mg/dL Calcium Level 9.2 8.7-10.4 mg/dL Troponin I High Sensitivity < 3 L </=34 ng/L CT Abd/Pel indicates: Mild wall thickening of the Distal ascending colon which may be due to inadequate distention with mild Colitis not complete lead excluded. Sludge/ possible gallstone within the gallbladder. Otherwise, no CT evidence of acute cholecystitis. If there is concern for gallbladder abnormality, right upper quadrant ultrasound should be considered for further evaluation. Nonobstructing left renal calculus. Status post hysterectomy . The left ovary Appears to Slightly extending to a small left inguinal hernia. 2.4 cm left with 1.8 cm right ovarian cysts. Additional findings as above. IV Hep-Lock established patient will be admitted at this time. The CBC shows an elevated white blood cell count of 11 the chemistry panel is within limits The troponin level is The patient will be started on Flagyl IV piggyback for the The patient is being this Images Reviewed?: Images reviewed and evaluated by me Time of 1ST Reevaluation: 15:07 Reevaluation 1ST: Unchanged Patient Education/Counseling: Diagnosis, Treatment, Prognosis Family Education/Counseling: Diagnosis, Treatment, Prognosis SEPSIS Sepsis Screen Date sepsis recognized/suspect: Aug 04, 2025 Time Sepsis recognized/suspect: 1344 Recent Procedure: No On Antibiotic Therapy: No Respiratory Rate >20: No Heart Rate >90: No Temp<36 C (96.8 F) or >38.3 C: No SBP <90 or MAP <65 mmHG: No New Acute Mental Status Change: No Is the patient on CPAP, BIPAP,: No Physician Orders Troponin-I Hs (08/04/25 18:00) Troponin-I Hs (08/05/25 00:00) Urinalysis (08/04/25 13:54) Ct Ab Pel Wo Con-No Oral Or Iv (08/04/25 13:54) Heplock Iv (08/04/25 13:54) Pcat Instructor (08/04/25 13:54) Blood Pressure (08/04/25 13:54) Pulse Oximetry (08/04/25 13:54) Vital Signs Date Time Temp Pulse Resp B/P (MAP) Pulse Ox O2 Delivery O2 Flow Rate FiO2 08/04/25 13:43 97.3 86 20 138/66 97 97.3 Laboratory Tests Test 08/04/25 14:21 White Blood Count 11.3 10^3/uL (4.4-10.8) H Departure 1 Departure Time of Disposition: 15:07 Impression: Primary Impression: Intractable abdominal pain Additional Impressions: Gallstones Acute colitis Disposition: ADMITTED INPATIENT Admit to: Med Surg Condition: Fair Critical Care Note Critical Care Time?: No Stability Stability form required: Yes Unstable for transfer: Telemetry monitoring (Telemetry monitoring required), ED Physician Assesment (Clinical assesment) Heart Score Heart Score: Heart Score Response (Comments) Value History Moderate Suspicious 1 EKG Normal 0 Age <45 0 Risk Factors >3 or Hx ASHD 2 Troponin Normal limit 0 Total 3 I personally scribed for TONY CONTRERAS MD ([email or web address]) on 08/04/25 at 13:57. Electronically submitted by Elder Beasley ([email or web address]). I personally scribed for TONY CONTRERAS MD ([email or web address]) on 08/04/25 at 14:51. Electronically submitted by Elder Beasley ([email or web address]). TONY CONTRERAS MD Aug 04, 2025 13:57
[2025-08-04 14:32] LABS: Hematocrit 39.9 % (36.0-46.0); Hemoglobin 13.5 g/dL (12.2-16.2); Mean Corpuscular Hemoglobin 30.4 pg (28.0-32.0); Mean Corpuscular Volume 90.2 fL (80.0-100.0); Nucleated Red Blood Cells % 0.0 %
[2025-08-04 14:39] LABS: Potassium 3.7 mmol/L (3.5-5.1); Sodium 144 mmol/L (136-145)
[2025-08-04 14:40] LABS: Anion Gap 9 (5-15); Carbon Dioxide 28 mmol/L (20-31)
[2025-08-04 14:41] LABS: Calcium 9.2 mg/dL (8.7-10.4); Chloride 107 mmol/L (98-107)
[2025-08-04 14:45] LABS: Glucose 94 mg/dL (74-106)
[2025-08-04 14:46] LABS: BUN/Creatinine Ratio 15.1 (10.0-20.0); Blood Urea Nitrogen 14 mg/dL (9-23)
--- NOTE | 2025-08-04 14:47 | DVH ---
Exam: CT CT AB PEL WO CON-NO ORAL OR IV History: left flank Comparison Study: None TECHNIQUE: Multidetector CT of the abdomen AND PELVIS without IV contrast. Axial, coronal and sagitta l multiplanar reformats were obtained from the axial data set by the technologist. Radiation Dose Information: CT Dose: CTDI volume is 27.88 mGy. Dose-length product is 3.92 mGy*cm FINDINGS: Bibasilar atelectasis with Trace bilateral pleural effusion. Partially visualized heart is unremarkab le. Mild hepatomegaly. 2.3 x 2.5 cm soft tissue density lesion overlying the pancreatic tail region which may represent a pancreatic splenule. Otherwise, liver, spleen, pancreas and adrenal glands unremarka ble. There appears to be sludge / gallstone within the mildly distended Gallbladder without gallbladd er wall thickening. No pericholecystic edema. Small nonobstructing left renal lower pole calculi measuring up to 4 mm. Otherwise, kidneys, ureters unremarkable. Urinary bladder is decompressed with Mei catheter in place. Focus of air within the urinary bladder which is most likely iatrogenic. Status post hysterectomy. The left ovary appears to partially extend into the left inguinal hernia. 1.8 cm suggested right ovarian cyst within the right hemipelvis. 2.4 cm suggested left ovarian cyst within the left hemipelvis. Stomach is unremarkable. Small bowel loops unremarkable. Appendix is unremarkable. Mild wall thickeni ng of the distal ascending colon. Moderate amount of fecal material within the colon. No evidence of intraperitoneal free air or free fluid. No evidence of aortic aneurysm. No significant lymphadenopathy. Tiny fat containing infraumbilical hernia. Noncalcified granulomas of the bilateral posterior pelvic subcutaneous fat. No evidence of acute osseous abnormalities. IMPRESSION: Mild wall thickening of the Distal ascending colon which may be due to inadequate distention with mil d Colitis not complete lead excluded. Sludge/ possible gallstone within the gallbladder. Otherwise, no CT evidence of acute cholecystitis. If there is concern for gallbladder abnormality, right upper quadrant ultrasound should be considere d for further evaluation. Nonobstructing left renal calculus. Status post hysterectomy . The left ovary Appears to Slightly extending to a small left inguinal reyes ia. 2.4 cm left with 1.8 cm right ovarian cysts. Additional findings as above.
[2025-08-04] MEDS: ONDANSETRON HCL 4 MG/2 ML VIAL IV ONE (15:28)
[2025-08-04] MEDS: MORPHINE SULFATE 4 MG/ML SYR/VIAL IV ONE (15:28)
[2025-08-04] MEDS: SODIUM CHLORIDE 0.9% 500 ML IVB ONE (15:29)
--- NOTE | 2025-08-04 18:43 | DVHHP2 ---
History of Present Illness Reason for Visit: Chest pain History of Present Illness 45-year-old female presents for evaluation of chest pain. Patient reports undergoing a lithotripsy procedure last [facility] three urologist. She reports having left-sided flank pain intermittently. She presents today with complaints of left-sided sharp nonradiating chest pain that has been constant since want p.m.. She reports shortness for breath and nausea. No cough, fever or chills. No other acute symptoms reported. Past Medical History CVA, COPD, dyslipidemia, hypertension, kidney stones, seizures Past Surgical History Hysterectomy, genital reconstruction, lithotripsy Family History Noncontributory Smoke: No ALCOHOL: none Drugs: None Lives: with Family Review of Systems Review of Systems Review of systems are currently negative otherwise addressed in HPI. Allergies: Coded Allergies: Celecoxib (Verified Allergy, Unknown, 06/07/25) Uncoded Allergies: NITRO (Allergy, Unknown, 08/04/25) Medications Current Medications Medications Dose Ordered Sig/[place] Route Start Time Stop Time Status Last Admin Dose Admin Nitroglycerin 0.4 mg Q5MINP PRN SL 08/04/25 18:30 UNV Morphine Sulfate 2 mg Q30M PRN IV 08/04/25 18:30 Exam Vital Signs Vital Signs Date Time Temp Pulse Resp B/P (MAP) Pulse Ox O2 Delivery O2 Flow Rate FiO2 08/04/25 15:58 73 17 132/77 08/04/25 15:36 94 Nasal Cannula* 3 32 08/04/25 15:31 97.7 97.7 Exam Gen: 45-year-old female in mild distress, morbidly obese Skin: Warm, dry, normal color and texture, no rash. HEENT: Normocephalic atraumatic, mucous membranes moist and pink. Neck: Cervical and supraclavicular nodes normal without enlargement, trachea is midline, thyroid gland is normal without masses. Pulmonary: Clear to auscultation and percussion bilaterally. Cardiac: Regular rate and rhythm. No murmur Abdomen: Soft, nontender, nondistended, bowel sounds present all 4 quadrants, no guarding, no rigidity, no organomegaly. Extremities: No cyanosis, clubbing, no edema Neuro: Cranial nerves II through XII grossly intact, normal affect and speech, no focal motor deficits. Labs/Xrays ORDERING PHYSICIAN: DURBIN,LEANA AGACNP PROCEDURE(s): ECIDC - ECHO 2D MODE CARDIAC DOP REASON: chest pain ORDER NUMBER(s): [id number], ACCESSION NUMBER(s): [id number] APPROVED REPORT EXAM: LIMITED Two-dimensional and M-mode echocardiogram with Doppler and color Doppler. Blood Pressure: 114/69 mmHg INDICATION Chest Pain RISK FACTORS Obesity: Height: 5'5, Weight: 290 DIMENSIONS LVDd 4.0 (3.8-5.7cm) LA (2D) 3.5 (1.9-4.0cm) Aortic Root 2.7 (2.0- 3.7cm) LVDs 3.0 (2.5-4.0cm) LA (MM) (1.9-4.0cm) Aortic Cusp Exc 1.8 (1.5- 2.0cm) EF (%) 49.0 (55-70%) Rt. Atrium (1.9-4.0cm) Asc. Aorta 2.9 cm IVSd 0.8 (0.7-1.1cm) RV (D) 2.0 (1.8-2.4cm) PWd 1.1 (0.7-1.1cm) Mitral Valve Mitral Mitral Stenosis E wave 0.84m/s MV Mean GR. mmHg A wave 0.66m/s MV Peak GR. 46mmHg E/A ratio 1.3 2D MVA cm2 DECEL Time 216ms PRESS 1/2 Time ms Aortic Valve Aortic Valve Aortic Stenosis V1 0.63m/s AO Mean GR. 2mmHg V2 1.10m/s AO Peak GR. 5mmHg LVOT Diameter 2.3 (1.8-2.4cm) Doppler MARIE 2.38cm2 Other Information Quality : Technically Limited Rhythm : Technically limited study due to body habitus.patient position. Conclusion LOW NORMAL LV EF AND IS 50% NORMAL VALVES NO EFFUSION NORMAL RV FUNCTION SIGNED BY: YOHANNES GILLETTE MD SIGNED DATE/TIME: 06/14/25 9052 ORDERING PHYSICIAN: TONY CONTRERAS MD PROCEDURE(s): ABPL - CT AB PEL WO CON-NO ORAL OR IV REASON: left flank ORDER NUMBER(s): [id number], ACCESSION NUMBER(s): [id number] ADDENDUM ADDENDUM # 1 Addendum to the IMPRESSION: 2.3 x 2.5 cm soft tissue density lesion overlying the pancreatic tail region which may represent a pancreatic splenule. Pancreatic lesion can not be completely excluded. MRI with contrast may be considered for further evaluation if clinically indicated. ORIGINAL REPORT Exam: CT CT AB PEL WO CON-NO ORAL OR IV History: left flank Comparison Study: None TECHNIQUE: Multidetector CT of the abdomen AND PELVIS without IV contrast. Axial, coronal and sagittal multiplanar reformats were obtained from the axial data set by the technologist. Radiation Dose Information: CT Dose: CTDI volume is 27.88 mGy. Dose-length product is 3.92 mGy*cm FINDINGS: Bibasilar atelectasis with Trace bilateral pleural effusion. Partially visualized heart is unremarkable. Mild hepatomegaly. 2.3 x 2.5 cm soft tissue density lesion overlying the pancreatic tail region which may represent a pancreatic splenule. Otherwise, liver, spleen, pancreas and adrenal glands unremarkable. There appears to be sludge / gallstone within the mildly distended Gallbladder without gallbladder wall thickening. No pericholecystic edema. Small nonobstructing left renal lower pole calculi measuring up to 4 mm. Otherwise, kidneys, ureters unremarkable. Urinary bladder is decompressed with Mei catheter in place. Focus of air within the urinary bladder which is most likely iatrogenic. Status post hysterectomy. The left ovary appears to partially extend into the left inguinal hernia. 1.8 cm suggested right ovarian cyst within the right hemipelvis. 2.4 cm suggested left ovarian cyst within the left hemipelvis. Stomach is unremarkable. Small bowel loops unremarkable. Appendix is unremarkable. Mild wall thickening of the distal ascending colon. Moderate amount of fecal material within the colon. No evidence of intraperitoneal free air or free fluid. No evidence of aortic aneurysm. No significant lymphadenopathy. Tiny fat containing infraumbilical hernia. Noncalcified granulomas of the bilateral posterior pelvic subcutaneous fat. No evidence of acute osseous abnormalities. IMPRESSION: Mild wall thickening of the Distal ascending colon which may be due to inadequate distention with mild Colitis not complete lead excluded. Sludge/ possible gallstone within the gallbladder. Otherwise, no CT evidence of acute cholecystitis. If there is concern for gallbladder abnormality, right upper quadrant ultrasound should be considered for further evaluation. Nonobstructing left renal calculus. Status post hysterectomy . The left ovary Appears to Slightly extending to a small left inguinal hernia. 2.4 cm left with 1.8 cm right ovarian cysts. Additional findings as above. ATED BY: LUCIA CAMPOS DO DICTATED DATE/TIME: 08/04/251510 SIGNED BY: LUCIA CAMPOS DO SIGNED DATE/TIME: 08/04/251510 CC: Exam: CT CT AB PEL WO CON-NO ORAL OR IV History: left flank Comparison Study: None TECHNIQUE: Multidetector CT of the abdomen AND PELVIS without IV contrast. Axial, coronal and sagittal multiplanar reformats were obtained from the axial data set by the technologist. Radiation Dose Information: CT Dose: CTDI volume is 27.88 mGy. Dose-length product is 3.92 mGy*cm FINDINGS: Bibasilar atelectasis with Trace bilateral pleural effusion. Partially visualized heart is unremarkable. Mild hepatomegaly. 2.3 x 2.5 cm soft tissue density lesion overlying the pancreatic tail region which may represent a pancreatic splenule. Otherwise, liver, spleen, pancreas and adrenal glands unremarkable. There appears to be sludge / gallstone within the mildly distended Gallbladder without gallbladder wall thickening. No pericholecystic edema. Small nonobstructing left renal lower pole calculi measuring up to 4 mm. Otherwise, kidneys, ureters unremarkable. Urinary bladder is decompressed with Mei catheter in place. Focus of air within the urinary bladder which is most likely iatrogenic. Status post hysterectomy. The left ovary appears to partially extend into the left inguinal hernia. 1.8 cm suggested right ovarian cyst within the right hemipelvis. 2.4 cm suggested left ovarian cyst within the left hemipelvis. Stomach is unremarkable. Small bowel loops unremarkable. Appendix is unremarkable. Mild wall thickening of the distal ascending colon. Moderate amount of fecal material within the colon. No evidence of intraperitoneal free air or free fluid. No evidence of aortic aneurysm. No significant lymphadenopathy. Tiny fat containing infraumbilical hernia. Noncalcified granulomas of the bilateral posterior pelvic subcutaneous fat. No evidence of acute osseous abnormalities. IMPRESSION: Mild wall thickening of the Distal ascending colon which may be due to inadequate distention with mild Colitis not complete lead excluded. Sludge/ possible gallstone within the gallbladder. Otherwise, no CT evidence of acute cholecystitis. If there is concern for gallbladder abnormality, right upper quadrant ultrasound should be considered for further evaluation. Nonobstructing left renal calculus. Status post hysterectomy . The left ovary Appears to Slightly extending to a small left inguinal hernia. 2.4 cm left with 1.8 cm right ovarian cysts. Additional findings as above. Labs Test 08/04/25 18:14 08/04/25 14:21 Range/Units White Blood Count 11.3 H 4.4-10.8 10^3/uL Red Blood Count 4.43 4.0-5.20 10^6/uL Hemoglobin 13.5 12.2-16.2 g/dL Hematocrit 39.9 36.0-46.0 % Mean Corpuscular Volume 90.2 80.0-100.0 fL Mean Corpuscular Hemoglobin 30.4 28.0-32.0 pg Mean Corpuscular Hemoglobin Concent 33.7 32.0-36.0 g/dL Red Cell Distribution Width 13.9 11.8-14.3 % Platelet Count 339 140-450 10^3/uL Mean Platelet Volume 7.0 6.9-10.8 fL Neutrophils (%) (Auto) 70.8 37.0-80.0 % Lymphocytes (%) (Auto) 19.3 10.0-50.0 % Monocytes (%) (Auto) 6.9 0.0-12.0 % Eosinophils (%) (Auto) 2.5 0.0-7.0 % Basophils (%) (Auto) 0.5 0.0-2.0 % Neutrophils # (Auto) 8.0 1.6-8.6 10 ^3/uL Lymphocytes # (Auto) 2.2 0.4-5.4 10 ^3/uL Monocytes # (Auto) 0.8 0-1.3 10 ^3/uL Eosinophils # (Auto) 0.3 0-0.8 10 ^3/uL Basophils # (Auto) 0.1 0-0.2 10 ^3/uL Nucleated Red Blood Cells 0.0 % Sodium Level 144 136-145 mmol/L Potassium Level 3.7 3.5-5.1 mmol/L Chloride Level 107 98-107 mmol/L Carbon Dioxide Level 28 20-31 mmol/L Anion Gap 9 5-15 Blood Urea Nitrogen 14 9-23 mg/dL Creatinine 0.93 0.550-1.02 mg/dL Glomerular Filtration Rate Calc 78 >90 mL/min BUN/Creatinine Ratio 15.1 10.0-20.0 Serum Glucose 94 74-106 mg/dL Calcium Level 9.2 8.7-10.4 mg/dL Lipase 56 H 12-53 U/L SEPSIS Sepsis Screen Date sepsis recognized/suspect: Aug 04, 2025 Time Sepsis recognized/suspect: 1344 Recent Procedure: No On Antibiotic Therapy: No Respiratory Rate >20: No Heart Rate >90: No Temp<36 C (96.8 F) or >38.3 C: No SBP <90 or MAP <65 mmHG: No New Acute Mental Status Change: No Is the patient on CPAP, BIPAP,: No Physician Orders Troponin-I Hs (08/04/25 18:00) Troponin-I Hs (08/05/25 00:00) Urinalysis (08/04/25 13:54) Ct Ab Pel Wo Con-No Oral Or Iv (08/04/25 13:54) Heplock Iv (08/04/25 13:54) Lithographer Apprentice (08/04/25 13:54) Blood Pressure (08/04/25 13:54) Pulse Oximetry (08/04/25 13:54) Admit (08/04/25 18:29) Nitroglycerin Sublingual (Ntrostat Subli (08/04/25 18:30) Morphine Sulfate Injection (08/04/25 18:30) Stat Ekg For Chest Pain (08/04/25 18:29) Notify Of Changes From Base (08/04/25 18:29) Director Case For 24 Hours (08/04/25 18:29) Emergency Dysrhythmia Protocol (08/04/25 18:29) Rhythm Strips Once Every Shift (08/04/25 18:29) Oxygen By Nasal Cannula (08/04/25 18:29) Vital Signs Date Time Temp Pulse Resp B/P (MAP) Pulse Ox O2 Delivery O2 Flow Rate FiO2 08/04/25 15:58 73 17 132/77 08/04/25 15:36 94 Nasal Cannula* 3 32 08/04/25 15:31 97.7 76 17 118/63 (81) 98 97.7 08/04/25 15:28 68 17 118/63 08/04/25 13:43 97.3 86 20 138/66 97 97.3 Laboratory Tests Test 08/04/25 14:21 White Blood Count 11.3 10^3/uL (4.4-10.8) H Medications Medications Dose Ordered Sig/[place] Route Start Time Stop Time Status Last Admin Dose Admin Morphine Sulfate 4 mg ONCE ONCE IV 08/04/25 14:00 08/04/25 14:03 DC 08/04/25 15:28 4 MG Ondansetron HCl 4 mg ONCE ONCE IV 08/04/25 14:00 08/04/25 14:03 DC 08/04/25 15:28 4 MG Sodium Chloride 500 ml @ 500 mls/hr Q1H ONCE IVB 08/04/25 14:00 08/04/25 14:59 DC 08/04/25 15:29 500 MLS/HR Assessment/Plan Assessment/Plan Assessment Chest pain Hypertension History of kidney stones Possible UTI Morbid obesity Plan Admit the patient into telemetry to the hospitalist Cardiology consultation Liliam Resume home medications Continue treatment per orders. Plan discussed with: Patient My Orders Orders - CAMPOS DURBIN Procedure Category Date Status Time Admit ADMIT 08/04/25 Transmitted 18:29 Nitroglycerin PHA 08/04/25 Logged Sublingual (Ntrostat 18:30 Morphine Sulfate PHA 08/04/25 In Process Injection 18:30 Stat Ekg For Chest GEORGINA 08/04/25 In Process Pain 18:29 Notify Of Changes GEORGINA 08/04/25 In Process From Base 18:29 Director Case For GEORGINA 08/04/25 In Process 24 Hours 18:29 Emergency Dysrhythmia GEORGINA 08/04/25 In Process Protocol 18:29 Rhythm Strips Once GEORGINA 08/04/25 In Process Every Shift 18:29 Oxygen By Nasal RT 08/04/25 Transmitted Cannula 18:29 Date of Service: Aug 04, 2025 Billing Provider: CAMPOS DURBIN Common Visit Codes: [id number] INP/OBS CARE (HIGH) CAMPOS DURBIN Aug 04, 2025 18:43
[2025-08-04 20:16] LABS: Urine Protein, UAD 1+ (Negative)
[2025-08-04 22:57] VITALS: BP 136/71; PULSE 64; PULSE 94; RESP 18; TEMP 97.7; O2SAT 100
[2025-08-04] MEDS: NITROGLYCERIN 0.4 MG SL TAB SL PRN (23:41)
[2025-08-05] MEDS: MORPHINE SULFATE INJ 2 MG/ml SYRG IV PRN (00:09)
[2025-08-05] MEDS ORDERED: HYDROcodone-ACET 5/325MG TAB PO PRN (00:30)
[2025-08-05 01:00] VITALS: BP 129/74; PULSE 69; RESP 18; TEMP 97.8; O2SAT 100
[2025-08-05 05:00] VITALS: BP 134/83; PULSE 71; RESP 18; TEMP 98; O2SAT 98
[2025-08-05 08:00] VITALS: PULSE 68
[2025-08-05 08:10] VITALS: O2SAT 99
[2025-08-05 08:14] LABS: Magnesium 1.8 mg/dL (1.6-2.6); Triglycerides 141.0 mg/dL (< 150)
[2025-08-05 08:16] LABS: Cholesterol 141.0 mg/dL (< 200)
[2025-08-05 08:22] LABS: HDL Cholesterol 36.0 mg/dL (40-59)
[2025-08-05 08:51] LABS: Opiate Scree,Urine Pos (NEGATIVE)
[2025-08-05 08:59] LABS: Amphetamine Screen, Urine Neg (NEGATIVE); Barbiturate Scree,Urine Neg (NEGATIVE); Benzodiazephine Screen, Urine Neg (NEGATIVE); Cannabinoid Screen, Urine Neg (NEGATIVE); Cocaine Screen, Urine Neg (NEGATIVE); Phencyclidine Screen, Urine Neg (NEGATIVE)
--- NOTE | 2025-08-05 09:32 | ECG ---
[facility] Test Date: 2025-08-04 Test Time: 23:29:23 Pat Name: DOMINIQUE HUSAIN Department: Respiratoy Room: 0298T B Gender: F Form Worker: MARIA ISABEL : 1980 Requested By: CAMPOS DURBIN Order Number: [id number] Reading MD: Brayden Echeverria Measurements Intervals [place] Rate: 55 P: 25 IA: 164 QRS: 21 QRSD: 112 T: 55 QT: 438 QTc: 419 Interpretive Statements Sinus rhythm Borderline intraventricular conduction delay Low voltage, precordial leads Electronically Signed On 08-05-2025 12:20:43 PDT by Brayden Echeverria Please click the below link to view image of tracing.
[2025-08-05] MEDS: IBUPROFEN 600 MG TAB PO ONE (09:46)
--- NOTE | 2025-08-05 11:00 | DVH ---
CHEST RADIOGRAPH Indication: Microvoltage, check cardiomegaly Technique: Single frontal view of the chest was obtained Comparison: XR CHEST 1 VIEW on DOS: 07/30/25, XR CHEST 1 VIEW on DOS: 07/16/25, XY CHEST PORTABLE on DO S: 06/13/25, XY CHEST TWO VIEWS ROUTINE on DOS: 06/07/25, XY CHEST PORTABLE on DOS: 05/14/25 FINDINGS: Lines and Tubes: None Lungs: No focal consolidation. Pleura: No effusion. No pneumothorax. Cardiomediastinal contours: Unremarkable Bones: No acute osseous abnormality. IMPRESSION: No acute cardiopulmonary disease.
--- NOTE | 2025-08-05 11:56 | DVHINCON2 ---
Date Seen: Aug 05, 2025 Referring Physician JESIKA Campbell Reason for Consultation Chest pain History of Present Illness This is a 45-year-old female patient who presents to emergency room with chief complaint of chest pain. The patient reports that the chest pain began at approximately 11:00 a.m. yesterday. She describes the pain as unprovoked, constant, stabbing in nature, left-sided and nonradiating. Associated symptoms include shortness of breath. She denies any alleviating or aggravating factors at home. She does report that morphine helped her pain when she arrived to the emergency room. Initial twelve lead electrocardiogram reveals normal sinus rhythm with nonspecific S-T segment changes to anterolateral leads. Serial troponin levels have been negative. Significant past medical history includes hypertension, dyslipidemia, seizure disorder, CVA without residual deficit, COPD with continuous O2 use, obstructive sleep apnea with CPAP use at night, kidney stones, and obesity. The patient denies any previous cardiac workup. She does mention significant family cardiac history with her mother requiring open heart surgery. Past Medical History Past medical history reviewed. No other significant than mentioned above. Past Surgical History Hysterectomy Family History: Diabetes mellitus G8 FATHER Hypercholesterolemia G8 MOTHER Family History Family history reviewed. Social History Patient reports vaping daily Denies illicit drug use Denies alcohol use Allergies: Coded Allergies: Celecoxib (Verified Allergy, Unknown, 06/07/25) Uncoded Allergies: NITRO (Allergy, Unknown, 08/04/25) Home Meds Reported Medications Verapamil Hcl (Calan) 40 Mg Tb, 1 PO DAILY 06/14/25 Risperidone (Risperidone) 1 Mg Tab, 1 TAB PO BID 06/14/25 Clopidogrel Bisulfate (CLOPIDOGREL) 75 Mg Tab, 1 TAB PO DAILY 06/14/25 Fenofibrate (Fenofibrate) 160 Mg Tab, 1 TAB PO DAILY 06/14/25 Benztropine Mesylate (Benztropine Mesylate) 2 Mg Tab, 1 TAB PO BID 06/14/25 Furosemide (Furosemide) 20 Mg Tab, 1 TAB PO DAILY 06/14/25 Multiple Vitamin (Multivitamin) 1 Tab Tab, 1 TAB PO DAILY 06/14/25 Atorvastatin Calcium (ATORVASTATIN CALCIUM) 80 Mg Tab, 1 TAB PO DAILY 06/14/25 Escitalopram Oxalate (ESCITALOPRAM OXALATE) 20 Mg Tab, 1 TAB PO DAILY 06/14/25 Omeprazole (Omeprazole Dr) 20 Mg Cap, 1 CAP PO DAILY 06/14/25 Prazosin HCl (Prazosin Hydrochloride) 5 Mg Cap, 1 CAP PO HS 06/14/25 Trazodone Hcl (Trazodone Hcl) 300 Mg Tab, 1 TAB PO HS 06/14/25 Hydroxyzine Hcl (Hydroxyzine Hcl) 25 Mg Tab, 1 TAB PO QID 06/14/25 Lamotrigine (Lamotrigine) 200 Mg Tab, 100 MG PO BID 06/14/25 Topiramate (Topiramate) 100 Mg Tab, 1 TAB PO BID 06/14/25 Levetiracetam (Levetiracetam) 750 Mg Tab, 1 TAB PO BID 06/14/25 Home Meds Home medications reviewed. Current Medications Current Medications Medications (Trade) Dose Ordered Sig/[place] Route PRN Reason Start Time Stop Time Status Last Admin Nitroglycerin (Ntrostat Sublingual) 0.4 mg Q5MINP PRN SL FOR CHEST PAIN 08/04/25 18:30 Morphine Sulfate 2 mg Q30M PRN IV FOR CHEST PAIN 08/04/25 18:30 08/05/25 00:09 Ceftriaxone Sodium 50 ml @ 100 mls/hr DAILY@09 IV 08/05/25 09:00 08/05/25 09:41 Acetaminophen/ Hydrocodone Bitart ([place] 5/325MG Tab) 1 tab Q6HPRN PRN PO MODERATE PAIN (4-6 PAIN SCALE) 08/05/25 00:30 Review of Systems Constitutional: No symptom reported Ears, Nose, & Throat: No symptom reported Eyes: No symptom reported Neurological: No symptoms reported Pulmonary/Respiratory: Shortness of breath Cardiovascular: Chest pain Gastrointestinal: No symptom reported Genitourinary: No symptom reported Musculoskeletal: No symptom reported Skin: No symptom reported Psychiatric: No symptom reported Endocrine: No symptom reported Hematologic/Lymphatic: No symptom reported Vital Signs Vital Signs Date Time Temp Pulse Resp B/P (MAP) Pulse Ox O2 Delivery O2 Flow Rate FiO2 08/05/25 05:00 98.0 71 18 134/83 (100) 98 98.0 08/04/25 22:57 Nasal Cannula* 3 32 Physical Exam General Appearance: Cooperative. Obese Pulmonary/Respiratory: Clear, bilateral breaths sounds. Cardiovascular/Chest: Regular rate and rhythm. Peripheral Pulses: 2+ Radial (R). 2+ Radial (L). 2+ Pedal (R). 2+ Pedal (L) Abdominal Exam: Normal bowel sounds. Ankle Exam: Negative ankle edema Lower extremities: Negative lower extremity edema Neuro/Mental Status: A/OX4, coherent. Thoughts/Psych: Normal thought pattern. Appropriate mood and affect. Good judgment and insight. Appearance: No acute distress. Skin Exam: Normal inspection. Normal color. Warm and dry. Labs/Diagnostic Data Labs Test 08/05/25 09:35 08/05/25 00:16 08/04/25 19:40 08/04/25 14:21 Range/Units Hemoglobin A1c 5.5 <5.7 % A1C Magnesium Level 1.8 1.6-2.6 mg/dL Troponin I High Sensitivity < 3 L </=34 ng/L Triglycerides Level 141 < 150 mg/dL Cholesterol Level 141 < 200 mg/dL LDL Cholesterol 92 < 100 mg/dL HDL Cholesterol 36 L 40-59 mg/dL Thyroid Stimulating Hormone (TSH) 3.82 0.55-4.78 uIU/mL Beta HCG, Quantitative < 1.5 L 1.5-4.2 mIU/mL Urine Color Colorless Yellow Urine Clarity Turbid H Clear Urine pH 5.0 5.0-9.0 Urine Specific [place] 1.022 1.001-1.035 Urine Protein 1+ H Negative Urine Ketones Negative Negative Urine Blood 3+ H Negative /uL Urine Nitrite Negative Negative Urine Bilirubin Negative Negative Urine Urobilinogen Normal Negative mg/dL Urine Leukocyte Esterase Negative Negative /uL Urine RBC 530 0 - 4 /hpf Urine Microscopic WBC 1 0-5 /HPF Urine Squamous Epithelial Cells Few <5 /hpf Urine Bacteria Few H None Seen /hpf Urine Mucus Few None Seen Urine Glucose Normal Normal mg/dL Urine Opiates Screen Pos NEGATIVE Urine Fentanyl Screen Neg NEGATIVE Urine Barbiturates Screen Neg NEGATIVE Urine Phencyclidine Screen Neg NEGATIVE Urine Amphetamines Screen Neg NEGATIVE Urine Benzodiazepines Screen Neg NEGATIVE Urine Cocaine Screen Neg NEGATIVE Urine Cannabinoids Screen Neg NEGATIVE White Blood Count 11.3 H 4.4-10.8 10^3/uL Red Blood Count 4.43 4.0-5.20 10^6/uL Hemoglobin 13.5 12.2-16.2 g/dL Hematocrit 39.9 36.0-46.0 % Mean Corpuscular Volume 90.2 80.0-100.0 fL Mean Corpuscular Hemoglobin 30.4 28.0-32.0 pg Mean Corpuscular Hemoglobin Concent 33.7 32.0-36.0 g/dL Red Cell Distribution Width 13.9 11.8-14.3 % Platelet Count 339 140-450 10^3/uL Mean Platelet Volume 7.0 6.9-10.8 fL Neutrophils (%) (Auto) 70.8 37.0-80.0 % Lymphocytes (%) (Auto) 19.3 10.0-50.0 % Monocytes (%) (Auto) 6.9 0.0-12.0 % Eosinophils (%) (Auto) 2.5 0.0-7.0 % Basophils (%) (Auto) 0.5 0.0-2.0 % Neutrophils # (Auto) 8.0 1.6-8.6 10 ^3/uL Lymphocytes # (Auto) 2.2 0.4-5.4 10 ^3/uL Monocytes # (Auto) 0.8 0-1.3 10 ^3/uL Eosinophils # (Auto) 0.3 0-0.8 10 ^3/uL Basophils # (Auto) 0.1 0-0.2 10 ^3/uL Nucleated Red Blood Cells 0.0 % D-Dimer, Quantitative 0.43 0.0-0.49 mg/L FEU Sodium Level 144 136-145 mmol/L Potassium Level 3.7 3.5-5.1 mmol/L Chloride Level 107 98-107 mmol/L Carbon Dioxide Level 28 20-31 mmol/L Anion Gap 9 5-15 Blood Urea Nitrogen 14 9-23 mg/dL Creatinine 0.93 0.550-1.02 mg/dL Glomerular Filtration Rate Calc 78 >90 mL/min BUN/Creatinine Ratio 15.1 10.0-20.0 Serum Glucose 94 74-106 mg/dL Calcium Level 9.2 8.7-10.4 mg/dL Lipase 56 H 12-53 U/L Assessment Chest pain, rule out coronary ischemia Rule out structural heart disease Hypertension Dyslipidemia COPD with continuous home O2 use Obstructive sleep apnea with CPAP use Seizure disorder History of CVA without residual weakness Obesity Plan/Recommendation We will continue with the following plan/recommendations (Dr. Alford): * Transthoracic echocardiogram to evaluate cardiac function * Chest pain protocol * HEART score: 3 points * Single antiplatelet therapy and lipid-lowering agent * Cardiac surveillance * Nuclear stress test Given the patient's clinical presentation, comorbidities, and family history, we will recommend the patient undergo a nuclear stress test. Plan discussed with the patient and her boyfriend in full detail. Patient agreeable to undergo nuclear stress test. We will schedule the patient at soonest availability. Thank you for allowing us to care for this patient. Please call with any questions or concerns. Critical care time spent: 44 minutes This medical document was created using an electronic medical record system with voice recognition software and computerized dictation system. Although this document has been carefully reviewed, there might still be some phonetic and typographical errors. Occasional wrong-word or ``sound-alike substitutions may have occurred due to the inherent limitations of voice recognition software. These areas are purely typographical due to imperfections of the software programs and do not reflect any compromise in the patient's medical care. Please read the chart carefully and recognize, using context, where these substitutions have occurred. Plan discussed with: Patient NYHA Physical activity limitations: NA Date of Service: Aug 05, 2025 Billing Provider: VIPUL LAST Cardiology Common Codes: [id number] INP/OBS CARE (High) Cardiology Consultation Codes: [id number] CONSULT <45MIN VIPUL LAST Aug 05, 2025 11:56
--- NOTE | 2025-08-05 12:05 | ECG ---
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
[2025-08-05 13:00] VITALS: BP 100/60; PULSE 67; RESP 19; TEMP 97.7; O2SAT 98
[2025-08-05] MEDS: REGADENOSON 0.4 MG/5 ML SYRG IV ONE ×2 (13:54→13:57)
--- NOTE | 2025-08-05 15:56 | DVHPN2 ---
Subjective Patient continues to have sharp left-sided chest Reviewed: Care Plan, H&P, Labs, Medications, Previous Orders Changes from previous H/P or p: No Changes General: Per HPI Objective Vitals Vital Signs Date Time Temp Pulse Resp B/P (MAP) Pulse Ox O2 Delivery O2 Flow Rate FiO2 08/05/25 13:00 97.7 67 19 100/60 (73) 98 97.7 08/04/25 22:57 Nasal Cannula* 3 32 Intake/Output Intake and Output 08/05/25 07:00 Intake Total 500 ml Balance 500 ml Intake Oral 0 ml IV Total 500 ml # Voids 2 General Appearance: Alert, Oriented X3, Cooperative HEENT: Atraumatic, PERRLA, Other (Poor dentition) Lungs: Clear to auscultation, Normal air movement, Other (Active cough) Cardiovascular: Normal S1, Normal S2 Abdomen: Normal bowel sounds, Soft, No tenderness Musculoskeletal: Normal sensory function, Normal motor function Skin: Dry, Intact Psych/Mental Status: Mental status NL, Mood NL Medications Current Medications Medications Dose Ordered Sig/[place] Route Start Time Stop Time Status Last Admin Dose Admin Nitroglycerin 0.4 mg Q5MINP PRN SL 08/04/25 18:30 Morphine Sulfate 2 mg Q30M PRN IV 08/04/25 18:30 08/05/25 00:09 2 MG Ceftriaxone Sodium 50 ml @ 100 mls/hr DAILY@09 IV 08/05/25 09:00 08/05/25 09:41 100 MLS/HR Acetaminophen/ Hydrocodone Bitart 1 tab Q6HPRN PRN PO 08/05/25 00:30 Aspirin 81 mg DAILY PO 08/06/25 10:00 Atorvastatin Calcium 20 mg HS PO 08/05/25 22:00 Laboratory Results Laboratory Tests 08/04/25 14:21 Chemistry Test 08/05/25 00:16 Magnesium Level 1.8 mg/dL (1.6-2.6) Lipid panel Test 08/05/25 00:16 Cholesterol Level 141 mg/dL (< 200) HDL Cholesterol 36 mg/dL (40-59) L Triglycerides Level 141 mg/dL (< 150) HgA1c, TSH Test 08/05/25 00:16 08/05/25 09:35 Thyroid Stimulating Hormone (TSH) 3.82 uIU/mL (0.55-4.78) Hemoglobin A1c 5.5 % A1C (<5.7) Urinalysis Test 08/04/25 19:40 Urine Color Colorless (Yellow) Urine Clarity Turbid (Clear) H Urine pH 5.0 (5.0-9.0) Urine Specific [place] 1.022 (1.001-1.035) Urine Protein 1+ (Negative) H Urine Ketones Negative (Negative) Urine Blood 3+ /uL (Negative) H Urine Nitrite Negative (Negative) Urine Bilirubin Negative (Negative) Urine Urobilinogen Normal mg/dL (Negative) Urine Leukocyte Esterase Negative /uL (Negative) Urine RBC 530 /hpf (0 - 4) Urine Microscopic WBC 1 /HPF (0-5) Urine Squamous Epithelial Cells Few /hpf (<5) Urine Bacteria Few /hpf (None Seen) H Urine Mucus Few (None Seen) Urine Glucose Normal mg/dL (Normal) Labs and/or images reviewed: Labs reviewed by me, Image(s) reviewed by me Assessment/Plan Assessment/Plan Impression: -rule out ACS -COPD -acute on chronic hypoxic respiratory failure -anxiety disorder -UTI -obesity Plan: -cardiology consultation: Cardiolite stress test pending -bronchodilators p.r.n. -O2 supplementation to keep saturation greater than 92% -continue Rocephin -CT scan of the chest -plan of care discussed with the patient including additional overnight stay until stress test is read as well as CT scan of the chest. Patient verbalized understanding. Total time spent with patient discussing and formulating plan of care: 35 minutes. This medical document was created using an electronic medical record system with [employer] dictation system. Although this document has been carefully reviewed, there may still be some phonetic and typographical errors. These areas are purely typographical due to imperfections of the software programs, and do not reflect any compromise in the patient's medical care. Plan discussed with: Patient, Other (RN) My Orders Orders - KEVIN RAYGOZA NP Procedure Category Date Status Time Chest Without Contrast CT 08/05/25 Transmitted 15:50 Date of Service: Aug 05, 2025 Billing Provider: KEVIN RAYGOZA NP Common Visit Codes: [id number] INP/OBS CARE(HIGH) KEVIN RAYGOZA NP Aug 05, 2025 15:56
[2025-08-05] MEDS ORDERED: ATORVASTATIN 20 MG TAB PO SCH (22:00)
--- NOTE | 2025-08-05 23:09 | DVHINCON2 ---
Date Seen: Aug 05, 2025 Referring Physician JESIKA Campbell Reason for Consultation Chest pain History of Present Illness This is a 45-year-old female with a past medical history of hypertension, dyslipidemia, seizure disorder, CVA without residual deficit, COPD with continuous O2 use, obstructive sleep apnea with CPAP use at night, kidney stones, and obesity who presents to emergency room with a complaint of chest pain. The patient reports that the chest pain began at approximately 11:00 a.m. yesterday. She describes the pain as unprovoked, constant, stabbing in nature, left-sided and nonradiating. Associated symptoms include shortness of breath. She denies any alleviating or aggravating factors at home. She does report that morphine helped her pain when she arrived to the emergency room. Initial twelve lead electrocardiogram reveals normal sinus rhythm with nonspecific S-T segment changes to anterolateral leads. Serial troponin levels have been negative. The patient denies any previous cardiac workup. She does mention significant family cardiac history with her mother requiring open heart surgery. Chest x-ray shows NAD. Patient was admitted to the hospital. I am asked to consult on this patient. Past Medical History Past medical history reviewed. No other significant than mentioned above. Past Surgical History Hysterectomy Family History: Diabetes mellitus G8 FATHER Hypercholesterolemia G8 MOTHER Allergies: Coded Allergies: Celecoxib (Verified Allergy, Unknown, 06/07/25) Uncoded Allergies: NITRO (Allergy, Unknown, 08/04/25) Home Meds Reported Medications Verapamil Hcl (Calan) 40 Mg Tb, 1 PO DAILY 06/14/25 Risperidone (Risperidone) 1 Mg Tab, 1 TAB PO BID 06/14/25 Clopidogrel Bisulfate (CLOPIDOGREL) 75 Mg Tab, 1 TAB PO DAILY 06/14/25 Fenofibrate (Fenofibrate) 160 Mg Tab, 1 TAB PO DAILY 06/14/25 Benztropine Mesylate (Benztropine Mesylate) 2 Mg Tab, 1 TAB PO BID 06/14/25 Furosemide (Furosemide) 20 Mg Tab, 1 TAB PO DAILY 06/14/25 Multiple Vitamin (Multivitamin) 1 Tab Tab, 1 TAB PO DAILY 06/14/25 Atorvastatin Calcium (ATORVASTATIN CALCIUM) 80 Mg Tab, 1 TAB PO DAILY 06/14/25 Escitalopram Oxalate (ESCITALOPRAM OXALATE) 20 Mg Tab, 1 TAB PO DAILY 06/14/25 Omeprazole (Omeprazole Dr) 20 Mg Cap, 1 CAP PO DAILY 06/14/25 Prazosin HCl (Prazosin Hydrochloride) 5 Mg Cap, 1 CAP PO HS 06/14/25 Trazodone Hcl (Trazodone Hcl) 300 Mg Tab, 1 TAB PO HS 06/14/25 Hydroxyzine Hcl (Hydroxyzine Hcl) 25 Mg Tab, 1 TAB PO QID 06/14/25 Lamotrigine (Lamotrigine) 200 Mg Tab, 100 MG PO BID 06/14/25 Topiramate (Topiramate) 100 Mg Tab, 1 TAB PO BID 06/14/25 Levetiracetam (Levetiracetam) 750 Mg Tab, 1 TAB PO BID 06/14/25 Current Medications Current Medications Medications (Trade) Dose Ordered Sig/[place] Route PRN Reason Start Time Stop Time Status Last Admin Nitroglycerin (Ntrostat Sublingual) 0.4 mg Q5MINP PRN SL FOR CHEST PAIN 08/04/25 18:30 Morphine Sulfate 2 mg Q30M PRN IV FOR CHEST PAIN 08/04/25 18:30 08/05/25 00:09 Ceftriaxone Sodium 50 ml @ 100 mls/hr DAILY@09 IV 08/05/25 09:00 08/05/25 09:41 Acetaminophen/ Hydrocodone Bitart ([place] 5/325MG Tab) 1 tab Q6HPRN PRN PO MODERATE PAIN (4-6 PAIN SCALE) 08/05/25 00:30 Aspirin 81 mg DAILY PO 08/06/25 10:00 Atorvastatin Calcium (Lipitor) 20 mg HS PO 08/05/25 22:00 Review of Systems Constitutional: No symptom reported Ears, Nose, & Throat: No symptom reported Eyes: No symptom reported Neurological: No symptoms reported Pulmonary/Respiratory: Shortness of breath Cardiovascular: Chest pain Gastrointestinal: No symptom reported Genitourinary: No symptom reported Musculoskeletal: No symptom reported Skin: No symptom reported Psychiatric: No symptom reported Endocrine: No symptom reported Hematologic/Lymphatic: No symptom reported Vital Signs Vital Signs Date Time Temp Pulse Resp B/P (MAP) Pulse Ox O2 Delivery O2 Flow Rate FiO2 08/05/25 05:00 98.0 71 18 134/83 (100) 98 98.0 08/04/25 22:57 Nasal Cannula* 3 32 Physical Exam GENERAL: Alert and oriented x 3. No acute distress. Obese. EYES: PERRL, EOMI. Anicteric. HENT: Moist mucous membranes. LUNGS: Clear to auscultation bilaterally. CARDIOVASCULAR: Regular rate and rhythm. ABDOMEN: Soft, nontender and nondistended. EXTREMITIES: No edema. NEUROLOGIC: No focal neurological deficits. SKIN: Warm, dry. Labs/Diagnostic Data Labs Test 08/05/25 09:35 08/05/25 00:16 08/04/25 19:40 08/04/25 14:21 Range/Units Hemoglobin A1c 5.5 <5.7 % A1C Magnesium Level 1.8 1.6-2.6 mg/dL Troponin I High Sensitivity < 3 L </=34 ng/L Triglycerides Level 141 < 150 mg/dL Cholesterol Level 141 < 200 mg/dL LDL Cholesterol 92 < 100 mg/dL HDL Cholesterol 36 L 40-59 mg/dL Thyroid Stimulating Hormone (TSH) 3.82 0.55-4.78 uIU/mL Beta HCG, Quantitative < 1.5 L 1.5-4.2 mIU/mL Urine Color Colorless Yellow Urine Clarity Turbid H Clear Urine pH 5.0 5.0-9.0 Urine Specific [place] 1.022 1.001-1.035 Urine Protein 1+ H Negative Urine Ketones Negative Negative Urine Blood 3+ H Negative /uL Urine Nitrite Negative Negative Urine Bilirubin Negative Negative Urine Urobilinogen Normal Negative mg/dL Urine Leukocyte Esterase Negative Negative /uL Urine RBC 530 0 - 4 /hpf Urine Microscopic WBC 1 0-5 /HPF Urine Squamous Epithelial Cells Few <5 /hpf Urine Bacteria Few H None Seen /hpf Urine Mucus Few None Seen Urine Glucose Normal Normal mg/dL Urine Opiates Screen Pos NEGATIVE Urine Fentanyl Screen Neg NEGATIVE Urine Barbiturates Screen Neg NEGATIVE Urine Phencyclidine Screen Neg NEGATIVE Urine Amphetamines Screen Neg NEGATIVE Urine Benzodiazepines Screen Neg NEGATIVE Urine Cocaine Screen Neg NEGATIVE Urine Cannabinoids Screen Neg NEGATIVE White Blood Count 11.3 H 4.4-10.8 10^3/uL Red Blood Count 4.43 4.0-5.20 10^6/uL Hemoglobin 13.5 12.2-16.2 g/dL Hematocrit 39.9 36.0-46.0 % Mean Corpuscular Volume 90.2 80.0-100.0 fL Mean Corpuscular Hemoglobin 30.4 28.0-32.0 pg Mean Corpuscular Hemoglobin Concent 33.7 32.0-36.0 g/dL Red Cell Distribution Width 13.9 11.8-14.3 % Platelet Count 339 140-450 10^3/uL Mean Platelet Volume 7.0 6.9-10.8 fL Neutrophils (%) (Auto) 70.8 37.0-80.0 % Lymphocytes (%) (Auto) 19.3 10.0-50.0 % Monocytes (%) (Auto) 6.9 0.0-12.0 % Eosinophils (%) (Auto) 2.5 0.0-7.0 % Basophils (%) (Auto) 0.5 0.0-2.0 % Neutrophils # (Auto) 8.0 1.6-8.6 10 ^3/uL Lymphocytes # (Auto) 2.2 0.4-5.4 10 ^3/uL Monocytes # (Auto) 0.8 0-1.3 10 ^3/uL Eosinophils # (Auto) 0.3 0-0.8 10 ^3/uL Basophils # (Auto) 0.1 0-0.2 10 ^3/uL Nucleated Red Blood Cells 0.0 % D-Dimer, Quantitative 0.43 0.0-0.49 mg/L FEU Sodium Level 144 136-145 mmol/L Potassium Level 3.7 3.5-5.1 mmol/L Chloride Level 107 98-107 mmol/L Carbon Dioxide Level 28 20-31 mmol/L Anion Gap 9 5-15 Blood Urea Nitrogen 14 9-23 mg/dL Creatinine 0.93 0.550-1.02 mg/dL Glomerular Filtration Rate Calc 78 >90 mL/min BUN/Creatinine Ratio 15.1 10.0-20.0 Serum Glucose 94 74-106 mg/dL Calcium Level 9.2 8.7-10.4 mg/dL Lipase 56 H 12-53 U/L Assessment Chest pain, rule out coronary ischemia. Rule out structural heart disease. Hypertension. Dyslipidemia. COPD with continuous home O2 use. Obstructive sleep apnea with CPAP use. Seizure disorder. History of CVA without residual weakness. Obesity. Plan/Recommendation I agree with your ongoing assessment and care of plan. Patient has been seen by Delma Doan NP on my behalf, her and I discussed the plan with the patient. Transthoracic echocardiogram to evaluate cardiac function. Chest pain protocol. HEART score: 3 points. Single antiplatelet therapy and lipid-lowering agent. Cardiac surveillance. Nuclear stress test. Given the patient's clinical presentation, comorbidities, and family history, we will recommend the patient undergo a nuclear stress test. Plan discussed with the patient and her boyfriend in full detail. Patient agreeable to undergo nuclear stress test. We will schedule the patient at soonest availability. Additional plan as per the hospital course. Plan discussed with: Patient NYHA Physical activity limitations: NA Date of Service: Aug 05, 2025 Billing Provider: YOHANNES GILLETTE MD Cardiology Common Codes: 36513-[id number] INP/OBS CARE (High) Cardiology Consultation Codes: [id number] CONSULT <45MIN YOHANNES GILLETTE MD Aug 05, 2025 13:11
--- NOTE | 2025-08-06 09:16 | ECG ---
[facility] Test Date: 2025-08-05 Test Time: 08:27:56 Pat Name: DOMINIQUE HUSAIN Department: Respiratoy Room: 0298T B Gender: F Keno Clerk: SHAYNA STEPHENB: 1980 Requested By: MARIANELA SARAH Order Number: [id number] Reading MD: Brayden Echeverria Measurements Intervals [place] Rate: 101 P: 0 CO: 0 QRS: 1 QRSD: 92 T: 0 QT: 335 QTc: 435 Interpretive Statements Atrial fibrillation Low voltage, precordial leads Nonspecific T abnormalities, lateral leads Electronically Signed On 08-13-2025 19:32:07 PDT by Brayden Echeverria Please click the below link to view image of tracing.
--- NOTE | 2025-08-06 13:27 | DVHSR ---
APPROVED REPORT Exam: Nuclear Stress Test BMI: 0 Stress Test Details Stress Test: Pharmacologic stress testing performed using 0.4 mg of regadenoson per 5 mL given IV ov er 10 seconds. HR Resting HR: 61 bpmMax Heart Rate (APMHR): 176.525614 bpm Max HR Achieved: 100 bpmTarget HR (85% APMHR): 149.860696 bpm % of APMHR: 56.82 Recovery HR: 70 bpm BP Resting BP: 111/64 mmHg Recovery BP: 110/68 mmHg ECG Resting ECG: Sinus Rhythm Clinical Reason for Termination: Completed protocol Nurse Comments Recieved pt. from [facility]. A/Ox4 on 2L oxygen via NC. Connected to court monitor, VS stable. PIV fl ushes well. Reviewed POC. Pt. verbalized understanding of procedure including risks and side effects, agrees for stress testing. Lexiscan stress test performed per protocol. [facility] tech administered Cardiolite. Pt. tolerated well . Pt. stable, no change on exam. VS returned to baseline. Transferred to [facility] via wheelchair w/ te ch. Stress ECG Conclusion lvef 63% normal pefusin scan no ischemia NM EXAM: Myocardial Perfusion REST/STRESS Imaging Protocol: Rest Tc-99m/Stress Tc-99m 1 day Resting Data Rest SPECT myocardial perfusion imaging was performed in supine position 60 minutes following the int ravenous injection of 11.0 mCi of Tc-99m Sestamibi. Time of rest injection: 12:13 Date: 08/05/2025 Time of rest imagin:13 Date: 08/05/2025 The images were gated to evaluate regional wall motion and calculate left ventricular ejection fracti on. Administration Route: IV Administration Site: Right AC Pharmacologic Stress Pharmacologic stress test was performed by injecting Regadenoson 0.4 mg IV push followed by the intra venous injection of 33.0 mCi of Tc-99m Sestamibi. Time of stress injection: 14:13 Date: 08/05/2025 Time of stress imagin:13 Date: 08/05/2025 Administration Route: IV Administration Site: Right AC Gated Stress SPECT was performed 60 minutes after stress injection. The images were gated to evaluate regional wall motion and calculate left ventricular ejection fracti on. Stress only was performed in the Supine position. Nuclear Conclusion Nuclear Findings: negative for ischemia lvef 63% normal pefusin scan no ischemia
== END 2025-08-05 17:10 | disposition left against medical advice (07) | DRG 140 ==
LOC: ER 13:41 → UNDOADMIN 17:51 → OVERFLOW 17:51 → TELE-WESTW 22:57
PROVIDERS: ADMIT Nurse Practitioner Acute Care; ATTEND Nurse Practitioner Acute Care
DX: J44.1 Chronic obstructive pulmonary disease with (acute) exacerbation (principal); J96.21 Acute and chronic respiratory failure with hypoxia; Z99.81 Dependence on supplemental oxygen; E66.01 Morbid (severe) obesity due to excess calories; N39.0 Urinary tract infection, site not specified; I10 Essential (primary) hypertension; Z53.29 Procedure and treatment not carried out because of patient's decision for other reasons; K80.20 Calculus of gallbladder without cholecystitis without obstruction; K52.9 Noninfective gastroenteritis and colitis, unspecified; G47.33 Obstructive sleep apnea (adult) (pediatric); G40.909 Epilepsy, unspecified, not intractable, without status epilepticus; E78.5 Hyperlipidemia, unspecified; F41.9 Anxiety disorder, unspecified; F17.290 Nicotine dependence, other tobacco product, uncomplicated; Z79.899 Other long term (current) drug therapy; Z86.73 Personal history of transient ischemic attack (TIA), and cerebral infarction without residual deficits; Z90.710 Acquired absence of both cervix and uterus; Z87.442 Personal history of urinary calculi; Z83.3 Family history of diabetes mellitus; Z68.37 Body mass index [BMI] 37.0-37.9, adult
CPT/HCPCS: 36415; 71045; 74176; 78452; 80048; 80061; 80307; 81001; 83036; 83690; 83735; 84443; 84484; 84702; 85025; 85379; 93005; 93017; 96361; 96374; 96375; G0378; J2405

== ENCOUNTER 2025-09-15 15:34 | Emergency (ER) | payer MEDICAID ==
[~2025-09-15] VITALS: Ht 165.1 cm; Wt 129.0 kg
[2025-09-15 15:42] VITALS: TEMP 97.3
[2025-09-15 16:20] LABS: Hematocrit 39.4 % (36.0-46.0); Hemoglobin 13.0 g/dL (12.2-16.2); Mean Corpuscular Hemoglobin 29.9 pg (28.0-32.0); Mean Corpuscular Volume 90.8 fL (80.0-100.0); Nucleated Red Blood Cells % 0.1 %
--- NOTE | 2025-09-15 16:33 | ED.PDOC ---
SOB-HPI HPI Comments HPI: This is a 45 year old female presenting to the ED with chief complaint of SOB. Patient reports that she has been experiencing SOB with associated left sided chest pain since 3pm today. Patient relays that her pulse ox was noted to be 87% on RA when normally it is 92-95% at baseline. Patient states that she has taken all of her home medications today. Patient notes she has quit vaping since about a week ago. Patient denies any cough, congestion, fever, chills, dizziness, headache, or syncope. Past Medical history: Epilepsy, HTN, HLD, Kidney Stones, CVA, COPD Past Surgical history: Hysterectomy Medications: Reviewed Social History: Vapes, ETOH, and drug use. Allergies: NKDA HUSAIN: HPI: Poor Historian. REVIEW OF SYSTEMS: CONSTITUTIONAL: Denies acute: fever, diaphoresis, chills, generalized weakness. HEAD: Denies acute: headache, photophobia Eyes: Denies acute: Double vision, vision loss, eye pain, eye discharge. EARS: Denies acute: tinnitus, hearing loss, ear discharge, ear pain, THROAT: Denies acute: sore throat, swelling, difficulty swallowing , pain with swallowing, change in voice. NECK: Denies acute: neck pain, neck swelling, stiff neck. HEART: Denies acute : palpitations, LUNGS: Denies acute: , wheezing, cough, hemoptysis ABDOMEN: Denies acute: abdominal pain, Nausea, Vomiting, diarrhea, melena , hematemesis, hematochezia SKIN: Denies acute: rash, redness, lesions, itchiness. EXTREMITIES: Denies acute: calf pain, numbness, tingling, weakness, denies pain in extremity. Denies acute: Low back pain. Neuro: Denies acute: focal neurological deficit, motor or sensory focal neurological deficit, tremors, seizure like activity, confusion, dizziness, change in mental status, loss of bowel or bladder function, cauda equina like symptoms. : Denies acute: dysuria, hematuria, flank pain, increase in urinary frequency. PSYCH: Denies acute: hallucination, suicidal ideation, homicidal ideation. FEMALE: Denies acute: abnormal vaginal bleeding, foul odor, unusual discharge. PHYSICAL EXAM: General: ----no----acute distress, awake and alert. Head: normocephalic, atraumatic. No raccoon's eyes, no munoz sign. Neck: supple, trachea is midline, no swelling. Throat: Normal phonation. Eyes:, no erythema, no purulent discharge, no proptosis, no icterus. Heart: regular rate, regular rhythm, no significant murmur appreciated. Lungs: no apparent respiratory distress, patient is wearing supplemental oxygen. Able to speak in full sentences. No wheezing, no rhonchi, no crackles. No stridors Clear to auscultation bilaterally. Abdomen: non tender to palpation, non distended, soft, no guarding, no rebound, + bowel sounds. Neuro: Awake, Alert, oriented to name, self, situation, follows commands GCS=15. Speech is normal. Skin: no petechia, no purpura, no cyanosis, non-pale, not jaundice. Lower extremities: --no - Pitting edema no deformity, no focal swelling, no calf TTP. Makes eye contact. moves all four extremities. Face: no apparent facial droop. ED COURSE: DISCLAIMER: This medical document was created using an electronic medical record system with voice recognition software and computerized dictation system. Although this document has been carefully reviewed, there might still be some phonetic and typographical errors. Occasional wrong-word or "sound-alike" substitutions may have occurred due to the inherent limitations of voice recognition software. These areas are purely typographical due to imperfections of the software programs and do not reflect any compromise in the patient's medical care. Please read the chart carefully and recognize, using context, where these substitutions have occurred. Chief Complaint: Shortness of Breath Time Seen by MD: 16:30 Reviewed notes: Medications, Allergies Information Source: Patient, Significant Other Mode of Arrival: Ambulatory Was a procedure done? Was a procedure done?: No X-Ray, Labs, Meds, VS Vital Signs Date Time Temp Pulse Resp B/P (MAP) Pulse Ox O2 Delivery O2 Flow Rate FiO2 09/15/25 15:52 81 09/15/25 15:42 97.3 85 22 113/74 97 97.3 Lab Test 09/15/25 17:11 09/15/25 16:59 09/15/25 15:59 Range/Units Blood Gas Specimen Type Arterial Blood Gas Sample Site Right radial Blood Gas Patient Temperature 37.0 Arterial Blood Date Drawn [id number] Arterial Blood pH 7.409 7.350-7.450 Arterial Blood Partial Pressure CO2 36.6 32.0-45.0 mmHg Arterial Blood Partial Pressure O2 83.6 83.0-108.0 mmHg Arterial Blood HCO3 22.6 21.0-28.0 mmol/L Arterial Blood Oxygen Saturation 96.2 94.0-98.0 % Arterial Blood Base Excess -1.6 -2.0-3.0 mmol/L Arterial Blood Oxyhemoglobin 95.0 94.0-98.0 % Arterial Blood Carboxyhemoglobin 1.0 0.5-1.5 % Arterial Blood Methemoglobin 0.2 0.0-1.5 % Ricardo Test Yes Blood Gas Total Hemoglobin 13.40 12.0-16.0 g/dL Blood Gas Liter Flow 2.00 Blood Gas Modality Nasal cannula FiO2 % 28.0 Troponin I High Sensitivity < 3 L < 3 L </=34 ng/L White Blood Count 9.4 4.4-10.8 10^3/uL Red Blood Count 4.34 4.0-5.20 10^6/uL Hemoglobin 13.0 12.2-16.2 g/dL Hematocrit 39.4 36.0-46.0 % Mean Corpuscular Volume 90.8 80.0-100.0 fL Mean Corpuscular Hemoglobin 29.9 28.0-32.0 pg Mean Corpuscular Hemoglobin Concent 33.0 32.0-36.0 g/dL Red Cell Distribution Width 14.0 11.8-14.3 % Platelet Count 295 140-450 10^3/uL Mean Platelet Volume 7.5 6.9-10.8 fL Neutrophils (%) (Auto) 60.2 37.0-80.0 % Lymphocytes (%) (Auto) 25.7 10.0-50.0 % Monocytes (%) (Auto) 6.8 0.0-12.0 % Eosinophils (%) (Auto) 6.7 0.0-7.0 % Basophils (%) (Auto) 0.6 0.0-2.0 % Neutrophils # (Auto) 5.6 1.6-8.6 10 ^3/uL Lymphocytes # (Auto) 2.4 0.4-5.4 10 ^3/uL Monocytes # (Auto) 0.6 0-1.3 10 ^3/uL Eosinophils # (Auto) 0.6 0-0.8 10 ^3/uL Basophils # (Auto) 0.1 0-0.2 10 ^3/uL Nucleated Red Blood Cells 0.1 % D-Dimer, Quantitative 0.19 0.0-0.49 mg/L FEU Sodium Level 139 136-145 mmol/L Potassium Level 3.5 3.5-5.1 mmol/L Chloride Level 105 98-107 mmol/L Carbon Dioxide Level 25 20-31 mmol/L Anion Gap 9 5-15 Blood Urea Nitrogen 13 9-23 mg/dL Creatinine 1.00 0.550-1.02 mg/dL Glomerular Filtration Rate Calc 71 >90 mL/min BUN/Creatinine Ratio 13.0 10.0-20.0 Serum Glucose 126 H 74-106 mg/dL Calcium Level 9.2 8.7-10.4 mg/dL Total Bilirubin 0.2 0.2-1.0 mg/dL Aspartate Amino Transferase (AST) 24 13-40 U/L Alanine Aminotransferase (ALT) 28 7-40 U/L Alkaline Phosphatase 65 46-116 U/L B-Type Natriuretic Peptide 19.45 0-100 pg/mL Total Protein 6.9 5.7-8.2 g/dL Albumin 4.2 3.2-4.8 g/dL [place] [id number] Ph: [phone] DIAGNOSTIC IMAGING Diagnostic Imaging Report : [id number] Signed [facility]: [facility] [id number] UNIT: [id number] : 1980 LOC: ER ROOM / BED: / AGE / SEX: 45 / F ADM STATUS: REG ER SERVICE 1610 ORDERING PHYSICIAN: LIANE LYNNE DO PROCEDURE(s): CXRP - CHEST PORTABLE REASON: sob ORDER NUMBER(s): [id number], ACCESSION NUMBER(s): [id number] CLINICAL HISTORY: sob TECHNIQUE: Single view of the chest was obtained. COMPARISON: XY CHEST XRAY 1 VIEW on DOS: 08/05/25, XY CHEST PORTABLE on DOS: 8/11/25, XY CHEST TWO VIEWS ROUTINE on DOS: 06/07/25 FINDINGS: The heart size and pulmonary vasculature are normal. The lungs are clear. IMPRESSION: NO ACUTE CARDIOPULMONARY PROCESS. ATED BY: JORGE ALFORD MD DICTATED DATE/TIME: 09/15/25 1640 SIGNED BY: JORGE ALFORD MD SIGNED DATE/TIME: 09/15/25 1640 CC: Images Reviewed?: Images reviewed and evaluated by me Time of 1ST Reevaluation: 17:30 Reevaluation 1ST: Unchanged Time of 2ND Reevaluation: 18:23 (Notified by the RT that the patient is actually uses oxygen at home. ABG was obtained which was unremarkable.) Patient Education/Counseling: Diagnosis, Treatment Family Education/Counseling: Diagnosis, Treatment Departure 1 Departure Time of Disposition: 18:23 Impression: Primary Impression: Dyspnea Disposition: 01 HOME / SELF CARE / HOMELESS Condition: Stable Additional Instructions: Additional instructions: Please read all instructions provided in this packet carefully. You MUST follow-up with your primary care/family doctor in 1 to 2 days. If you are unable to see your primary care/family doctor, please return to our emergency room for re-assessment and re-evaluation in 1 to 2 days. Return to the emergency room here in our facility or to the nearest ER [facility] if your symptoms change or worsen. CONSULTATIONS: you MUST Follow-up for consultation as soon as possible with: -cardiology and pulmonology in 1-2 days. Please call for appointment. You MUST call the consultants office yourself to make an appointment. You may need to arrange that through your insurance and/or your primary/family doctor. If you are unable to see the security consultant in 1 to 2 days, you must return to our emergency room (or any other ER of your choice) for re-assessment and re- evaluation. Adequate fluid hydration. Although you have been discharged from the Emergency Department, this does not mean that you have a "clean bill of health". No definitive diagnosis for your symptoms has been made today. It is possible that you are in the process of developing a serious illness. This is why you must return to the ED without fail if any new or worsening symptoms develop. Discharged With: Self, Relative Critical Care Note Critical Care Time?: No I personally scribed for LIANE LYNNE DO ([email or web address]) on 09/15/25 at 16:33. Electronically submitted by Elder Beasley ([email or web address]). I personally scribed for LIANE LYNNE DO ([email or web address]) on 09/15/25 at 16:46. Electronically submitted by Elder Beasley ([email or web address]). LIANE LYNNE DO Sep 15, 2025 16:33
[2025-09-15 16:37] LABS: Alanine Aminotransferase 28 U/L (7-40); Albumin 4.2 g/dL (3.2-4.8); Alkaline Phosphatase 65 U/L (46-116); Anion Gap 9 (5-15); BUN/Creatinine Ratio 13.0 (10.0-20.0); Bilirubin, Total 0.2 mg/dL (0.2-1.0); Blood Urea Nitrogen 13 mg/dL (9-23); Calcium 9.2 mg/dL (8.7-10.4); Carbon Dioxide 25 mmol/L (20-31); Chloride 105 mmol/L (98-107); Glucose 126 mg/dL (74-106); Potassium 3.5 mmol/L (3.5-5.1); Sodium 139 mmol/L (136-145); Total Protein 6.9 g/dL (5.7-8.2)
--- NOTE | 2025-09-15 16:43 | DVH ---
CLINICAL HISTORY: sob TECHNIQUE: Single view of the chest was obtained. COMPARISON: XY CHEST XRAY 1 VIEW on DOS: 08/05/25, XY CHEST PORTABLE on DOS: 06/13/25, XY CHEST TWO VIEWS ROUTINE on DOS: 06/07/25 FINDINGS: The heart size and pulmonary vasculature are normal. The lungs are clear. IMPRESSION: NO ACUTE CARDIOPULMONARY PROCESS.
[2025-09-15 17:16] LABS: Base Excess -1.6 mmol/L (-2.0-3.0)
[2025-09-15 18:32] VITALS: BP 104/68; PULSE 68; RESP 17; O2SAT 99
[2025-09-15] MEDS ORDERED: ALBUTEROL SULF 2.5 MG/0.5ML(0.5%) NEB SOLN ONE (18:33)
[2025-09-15] MEDS ORDERED: IPRATROPIUM BROM 0.5 MG/2.5ML INH SOL ONE (18:33)
[2025-09-15] MEDS: methylPREDNISolone SOD SUCC 125 MG/2 ML VL IM ONE (19:06)
[2025-09-15] MEDS: ALBUTEROL SULF 2.5 MG/0.5ML(0.5%) NEB SOLN NEB ONE (19:20)
[2025-09-15] MEDS: IPRATROPIUM BROM 0.5 MG/2.5ML INH SOL NEB ONE (19:21)
--- NOTE | 2025-09-15 19:29 | ECG ---
[facility] Test Date: 2025-09-15 Test Time: 15:52:39 Pat Name: DOMINIQUE HUSAIN Department: ED Room: Gender: F Home Office Claims Examiner: JURGEN : 1980 Requested By: LIANE LYNNE Order Number: [id number] Reading MD: Brayden Echeverria Measurements Intervals Hobbs Rate: 81 P: 48 MN: 190 QRS: 79 QRSD: 79 T: 45 QT: 458 QTc: 532 Interpretive Statements Sinus rhythm Low voltage, precordial leads Borderline T abnormalities, anterior leads Prolonged QT interval Baseline wander in lead(s) V1,V2,V4,V6 Electronically Signed On 09-16-2025 15:46:36 PST by Brayden Echeverria Please click the below link to view image of tracing.
== END 2025-09-15 19:09 | disposition home or self-care (01) ==
LOC: ER 15:34
DX: R06.00 Dyspnea, unspecified (principal); E78.5 Hyperlipidemia, unspecified; F17.290 Nicotine dependence, other tobacco product, uncomplicated; I10 Essential (primary) hypertension; J44.9 Chronic obstructive pulmonary disease, unspecified; Z90.710 Acquired absence of both cervix and uterus; Z86.73 Personal history of transient ischemic attack (TIA), and cerebral infarction without residual deficits; Z87.442 Personal history of urinary calculi
CPT/HCPCS: 36415; 36600; 71045; 80053; 82805; 83880; 84484; 85025; 85379; 93005; 94640; 96372; 99285; J2919

== ENCOUNTER 2025-10-20 12:25 | Emergency (ER) | payer MEDICAID ==
[~2025-10-20] VITALS: Ht 165.1 cm; Wt 130.0 kg
[2025-10-20 14:06] VITALS: BP 126/82; PULSE 77; RESP 19; TEMP 97.9; O2SAT 95
--- NOTE | 2025-10-20 14:08 | ED.PDOC ---
History of Present Illness HPI Comments A 45 YEAR OLD FEMALE PRESENTS TO THE ED WITH COMPLAINT OF REQUEST FOR BATEMAN CATHETER REMOVAL. PATIENT STATES SHE HAS A BATEMAN CATHETER IN PLACE AND IS REQUESTING THAT IT BE REMOVED TODAY. PATIENT DENIES FEVER, CHILLS, SHORTNESS OF BREATH, CHEST PAIN, ABDOMINAL PAIN, NAUSEA, VOMITING, HEADACHE, OR OTHER COMPLA INTS. NO OTHER SYMPTOMS OR MODIFYING FACTORS AT THIS TIME. PATIENT IS ALERT, ORIENTED X 4, AND HAS STEADY GAIT. Chief Complaint: Urinary Time Seen by MD: 12:30 Reviewed Notes: Nurses Notes, Medications, Allergies Allergies: Coded Allergies: Celecoxib (Verified Allergy, Unknown, 06/07/25) Uncoded Allergies: COCONUT OIL (Allergy, Unknown, 10/20/25) NITRO (Allergy, Unknown, 08/04/25) Home Meds Reported Medications Verapamil Hcl (Calan) 40 Mg Tb, 1 PO DAILY 06/14/25 Risperidone (Risperidone) 1 Mg Tab, 1 TAB PO BID 06/14/25 Clopidogrel Bisulfate (CLOPIDOGREL) 75 Mg Tab, 1 TAB PO DAILY 06/14/25 Fenofibrate (Fenofibrate) 160 Mg Tab, 1 TAB PO DAILY 06/14/25 Benztropine Mesylate (Benztropine Mesylate) 2 Mg Tab, 1 TAB PO BID 06/14/25 Furosemide (Furosemide) 20 Mg Tab, 1 TAB PO DAILY 06/14/25 Multiple Vitamin (Multivitamin) 1 Tab Tab, 1 TAB PO DAILY 06/14/25 Atorvastatin Calcium (ATORVASTATIN CALCIUM) 80 Mg Tab, 1 TAB PO DAILY 06/14/25 Escitalopram Oxalate (ESCITALOPRAM OXALATE) 20 Mg Tab, 1 TAB PO DAILY 06/14/25 Omeprazole (Omeprazole Dr) 20 Mg Cap, 1 CAP PO DAILY 06/14/25 Prazosin HCl (Prazosin Hydrochloride) 5 Mg Cap, 1 CAP PO HS 06/14/25 Trazodone Hcl (Trazodone Hcl) 300 Mg Tab, 1 TAB PO HS 06/14/25 Hydroxyzine Hcl (Hydroxyzine Hcl) 25 Mg Tab, 1 TAB PO QID 06/14/25 Lamotrigine (Lamotrigine) 200 Mg Tab, 100 MG PO BID 06/14/25 Topiramate (Topiramate) 100 Mg Tab, 1 TAB PO BID 06/14/25 Levetiracetam (Levetiracetam) 750 Mg Tab, 1 TAB PO BID 06/14/25 Information Source: Patient Mode of Arrival: Wheelchair Severity: Mild Timing: Days Duration: Since onset, Days Prehospital treatment: None Medication Refill: For: Other (REQUEST FOR BATEMAN CATHETER REMOVAL) Past Medical History PAST MEDICAL HISTORY: COPD, CVA, High Lipids, HTN, Kidney Stones, Seizures, TIA, UTI'S Surgical History: Hysterectomy 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: Denies all 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 BROKER Hx Family History Family History: Reviewed,noncontributory to illness, Family hx of Cancer Social History Smoker: Other Alcohol: Denies ETOH Use Drugs: Denies Drug Use Lives In: Home Constitutional: denies: chills, diaphoresis, fatigue, fever, malaise, sweats, weakness, others EENTM: denies: blurred vision, double vision, ear bleeding, ear discharge, ear drainage, ear pain, ear ringing, eye pain, eye redness, hearing loss, mouth pain, mouth swelling, nasal discharge, nose bleeding, nose congestion, nose pain, photophobia, tearing, throat pain, throat swelling, voice changes, others Respiratory: denies: cough, hemoptysis, orthopnea, SOB at rest, shortness of breath, SOB with excertion, stridor, wheezing, others Cardiovascular: denies: chest pain, dizzy spells, diaphoresis, Dyspnea on exertion, edema, irregular heart beat, left arm pain, lightheadedness, palpitations, PND, syncope, others Gastrointestinal: denies: abdomen distended, abdominal pain, blood streaked bowels, constipated, diarrhea, dysphagia, difficulty swallowing, hematemesis, melena, nausea, poor appetite, poor fluid intake, rectal bleeding, rectal pain, vomiting, others Genitourinary: reports: others (REQUEST FOR BATEMAN CATHETER REMOVAL.); denies: abnormal vagina bleeding, burning, dyspareunia, dysuria, flank pain, frequency, hematuria, incontinence, pain, , vagina discharge, urgency Neurological: denies: dizziness, fainting, headache, left sided numbness, left sided weakness, numbness, paresthesia, pre-existing deficit, right sided numbness, right sided weakness, seizure, speech problems, tingling, tremors, weakness, others Musculoskeletal: denies: back pain, gout, joint pain, joint swelling, muscle pain, muscle stiffness, neck pain, others Integumetry: denies: bruises, change in color, change in hair/nails, dryness, laceration, lesions, lumps, rash, wounds, others Allergic/Immunocompromised: denies: Difficulty Healing, Frequent Infections, Hives, Itching, others Hematologic/Lymphatic: denies: anemia, blood clots, easy bleeding, easy bruising, swollen glands, others Endocrine: denies: excessive hunger, excessive sweating, excessive thirst, excessive urination, flushing, intolerance to cold, intolerance to heat, unexplained weight gain, unexplained weight loss, others Psychiatric: denies: anxiety, bipolar disorder, depression, hopeless, panic disorder, schizophrenia, sleepless, suicidal, others All Other Systems: Reviewed and Negative Physical Exam General Appearance: No Apparent Distress, Normal HEENT: Normal ENT Inspection, PERRL/EOMI, Pharynx Normal, TMs Normal Neck: Full Range of Motion, Non-Tender, Normal, Normal Inspection Respiratory: Chest Non-Tender, Lungs Clear, No Accessory Muscle Use, No Respiratory Distress, Normal Breath Sounds Cardiovascular: No Edema, No JVD, No Murmur, No Gallop, Normal Peripheral Pulses, Regular Rate/Rhythm Breast Exam: Deferred Gastrointestinal: No Organomegaly, Non Tender, No Pulsatile Mass, Normal Bowel Sounds, Soft Genitalia: Deferred Pelvic: Deferred Rectal: Deferred Extremities: No calf tenderness, Normal capillary refill, Normal inspection, Normal range of motion, Non-tender, No pedal edema Musculoskeletal : Apperance: Normal Neurologic: Alert, animal husbandry manager II-XII nml as Tested, No Motor Deficits, Normal Affect, Normal Mood, No Sensory Deficits Cerebellar Function: Normal Reflexes: Normal Skin: Dry, Normal Color, Warm Peripheral Pulses: 2+ carotid (R), 2+ carotid (L) Lymphatic: No Adenopathy Was a procedure done? Was a procedure done?: No Differential Dx Considerations may include: REQUEST FOR BATEMAN CATHETER REMOVAL, UTI, ACUTE CYSTITIS X-Ray, Labs, Meds, VS Vital Signs Date Time Temp Pulse Resp B/P (MAP) Pulse Ox O2 Delivery O2 Flow Rate FiO2 10/20/25 14:06 97.9 77 19 126/82 (97) 95 97.9 10/20/25 12:27 97.2 95 18 118/75 100 97.2 X-Ray, Labs, Meds, VS Comment EXTERNAL MEDICAL RECORDS REVIEWED: [NONE] INDEPENDENT HISTORIANS: [NONE] SOCIAL DETERMINANTS OF HEALTH: [NONE] LABS ORDERED: NONE REVIEWED AND INTERPRETED RESULTS: NONE IMAGING ORDERED: NONE TREATMENTS ORDERED: BATEMAN CATHETER REMOVAL PROCEDURES PERFORMED: NONE CRITICAL CARE TIME: NONE I HAVE DISCUSSED THE PATIENT WITH THE ATTENDING PHYSICIAN DR. NEVILLE AND HE AGREES WITH THE PATIENT'S PLAN OF CARE AND DISPOSITION. BASED ON HISTORY OF PRESENT ILLNESS, AND PHYSICAL EXAM, PATIENT WILL BE DISCHARGED HOME. DISCUSSED PLAN FOR DISCHARGE HOME WITH RX []. MEDICATION WARNINGS GIVEN. SHARED DECISION MAKING: PATIENT INSTRUCTED TO FOLLOW UP WITH PRIMARY CARE PROVIDER IN 1-2 DAYS FOR RE-EVALUATION OF SYMPTOMS. PATIENT VERBALIZES UNDERSTANDING TO RETURN TO ED FOR NEW OR WORSENING SYMPTOMS OR IF FOLLOW UP WITH PCP CANNOT BE OBTAINED. PATIENT FEELS COMFORTABLE GOING HOME AT THIS TIME. ALL QUESTIONS ADDRESSED AT TIME OF DISCHARGE. Time of 1ST Reevaluation: 14:46 Reevaluation 1ST: Improved Patient Education/Counseling: Diagnosis, Treatment, Need For Follow Up Family Education/Counseling: Diagnosis, Treatment, Need For Follow Up Medical Screening: No EMC Exist At This Time SEPSIS Sepsis Screen Date sepsis recognized/suspect: Oct 20, 2025 Time Sepsis recognized/suspect: 1228 Recent Procedure: No On Antibiotic Therapy: No Respiratory Rate >20: No Heart Rate >90: Yes Temp<36 C (96.8 F) or >38.3 C: No SBP <90 or MAP <65 mmHG: No New Acute Mental Status Change: No Is the patient on CPAP, BIPAP,: No Vital Signs Date Time Temp Pulse Resp B/P (MAP) Pulse Ox O2 Delivery O2 Flow Rate FiO2 10/20/25 14:06 97.9 77 19 126/82 (97) 95 97.9 10/20/25 12:27 97.2 95 18 118/75 100 97.2 Departure 1 Departure Time of Disposition: 14:46 Impression: Primary Impression: Encounter for Bateman catheter removal Disposition: 01 HOME / SELF CARE / HOMELESS Condition: Stable Additional Instructions: FOLLOW-UP WITH PCP IN 1 TO 2 DAYS. TAKE MEDICATIONS PRESCRIBED. RETURN TO ED FOR ANY NEW OR WORSENING SYMPTOMS. Discharged With: Self, Spouse Critical Care Note Critical Care Time?: No Stability Stability form required: No I personally scribed for ALEXANDRA VALENTINE ([email or web address]) on 12/18/25 at 14:08. Electronically submitted by Bony Bassett ([email or web address]). ALEXANDRA VALENTINE Oct 20, 2025 14:08
== END 2025-10-20 14:44 | disposition home or self-care (01) ==
LOC: ER 12:25
DX: Z46.6 Encounter for fitting and adjustment of urinary device (principal); E78.5 Hyperlipidemia, unspecified; I10 Essential (primary) hypertension; J44.9 Chronic obstructive pulmonary disease, unspecified; F17.200 Nicotine dependence, unspecified, uncomplicated; Z79.899 Other long term (current) drug therapy; Z91.018 Allergy to other foods; Z90.710 Acquired absence of both cervix and uterus; Z87.442 Personal history of urinary calculi; Z86.73 Personal history of transient ischemic attack (TIA), and cerebral infarction without residual deficits; Z79.02 Long term (current) use of antithrombotics/antiplatelets; Z87.440 Personal history of urinary (tract) infections

== ENCOUNTER 2025-10-24 13:50 | Emergency (ER) | payer MEDICAID ==
[~2025-10-24] VITALS: Ht 165.1 cm; Wt 131.8 kg
[2025-10-24 13:53] VITALS: BP 105/64; PULSE 87; RESP 17; TEMP 97.6; O2SAT 96
--- NOTE | 2025-10-24 14:45 | ED.PDOC ---
History of Present Illness HPI Comments A 45 year old female with PMHx of epilepsy presents to the emergency department for chief complaint of a head injury onset this morning. Pt reports that they were walking out of the bathroom at home when they tripped and fell backwards, striking their head to the ground. Pt rates current pain 5/10 and describes it as a sharp, stabbing sensation. Pt reports symptoms of fatigue and headache, but denies associated symptoms of dizziness, shortness of breath, syncope, or fever. Pt is otherwise AOX4. Chief Complaint: fall injury Time Seen by MD: 14:42 Reviewed Notes: Nurses Notes, Medications, Allergies Allergies: Coded Allergies: Celecoxib (Verified Allergy, Unknown, 06/07/25) Uncoded Allergies: COCONUT OIL (Allergy, Unknown, 10/20/25) NITRO (Allergy, Unknown, 08/04/25) Home Meds Reported Medications Verapamil Hcl (Calan) 40 Mg Tb, 1 PO DAILY 06/14/25 Risperidone (Risperidone) 1 Mg Tab, 1 TAB PO BID 06/14/25 Clopidogrel Bisulfate (CLOPIDOGREL) 75 Mg Tab, 1 TAB PO DAILY 06/14/25 Fenofibrate (Fenofibrate) 160 Mg Tab, 1 TAB PO DAILY 06/14/25 Benztropine Mesylate (Benztropine Mesylate) 2 Mg Tab, 1 TAB PO BID 06/14/25 Furosemide (Furosemide) 20 Mg Tab, 1 TAB PO DAILY 06/14/25 Multiple Vitamin (Multivitamin) 1 Tab Tab, 1 TAB PO DAILY 06/14/25 Atorvastatin Calcium (ATORVASTATIN CALCIUM) 80 Mg Tab, 1 TAB PO DAILY 06/14/25 Escitalopram Oxalate (ESCITALOPRAM OXALATE) 20 Mg Tab, 1 TAB PO DAILY 06/14/25 Omeprazole (Omeprazole Dr) 20 Mg Cap, 1 CAP PO DAILY 06/14/25 Prazosin HCl (Prazosin Hydrochloride) 5 Mg Cap, 1 CAP PO HS 06/14/25 Trazodone Hcl (Trazodone Hcl) 300 Mg Tab, 1 TAB PO HS 06/14/25 Hydroxyzine Hcl (Hydroxyzine Hcl) 25 Mg Tab, 1 TAB PO QID 06/14/25 Lamotrigine (Lamotrigine) 200 Mg Tab, 100 MG PO BID 06/14/25 Topiramate (Topiramate) 100 Mg Tab, 1 TAB PO BID 06/14/25 Levetiracetam (Levetiracetam) 750 Mg Tab, 1 TAB PO BID 06/14/25 Information Source: Patient, Spouse Mode of Arrival: Wheelchair Severity: Moderate Timing: Hours Duration: Since onset Prehospital treatment: None Past Medical History PAST MEDICAL HISTORY: COPD, CVA, High Lipids, HTN, Kidney Stones, Seizures, TIA, UTI'S Surgical History: Hysterectomy 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 CARE NURSE History: Denies all 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 CARE NURSE Hx Family History Family History: Reviewed,noncontributory to illness, Family hx of Cancer Social History Smoker: Other Alcohol: Denies ETOH Use Drugs: Denies Drug Use Lives In: Home Constitutional: reports: fatigue; denies: chills, diaphoresis, fever, malaise, sweats, weakness, others EENTM: denies: blurred vision, double vision, ear bleeding, ear discharge, ear drainage, ear pain, ear ringing, eye pain, eye redness, hearing loss, mouth pain, mouth swelling, nasal discharge, nose bleeding, nose congestion, nose pain, photophobia, tearing, throat pain, throat swelling, voice changes, others Respiratory: denies: cough, hemoptysis, orthopnea, SOB at rest, shortness of breath, SOB with excertion, stridor, wheezing, others Cardiovascular: denies: chest pain, dizzy spells, diaphoresis, Dyspnea on exert ion, edema, irregular heart beat, left arm pain, lightheadedness, palpitations, PND, syncope, others Gastrointestinal: denies: abdomen distended, abdominal pain, blood streaked bowels, constipated, diarrhea, dysphagia, difficulty swallowing, hematemesis, melena, nausea, poor appetite, poor fluid intake, rectal bleeding, rectal pain, vomiting, others Genitourinary: denies: abnormal vagina bleeding, burning, dyspareunia, dysuria, flank pain, frequency, hematuria, incontinence, pain, , vagina discharge, urgency, others Neurological: reports: headache; denies: dizziness, fainting, left sided numbness, left sided weakness, numbness, paresthesia, pre-existing deficit, ri ght sided numbness, right sided weakness, seizure, speech problems, tingling, tremors, weakness, others Musculoskeletal: denies: back pain, gout, joint pain, joint swelling, muscle pain, muscle stiffness, neck pain, others Integumetry: denies: bruises, change in color, change in hair/nails, dryness, laceration, lesions, lumps, rash, wounds, others Allergic/Immunocompromised: denies: Difficulty Healing, Frequent Infections, Hives, Itching, others Hematologic/Lymphatic: denies: anemia, blood clots, easy bleeding, easy bruising, swollen glands, others Endocrine: denies: excessive hunger, excessive sweating, excessive thirst, excessive urination, flushing, intolerance to cold, intolerance to heat, unexplained weight gain, unexplained weight loss, others Psychiatric: denies: anxiety, bipolar disorder, depression, hopeless, panic disorder, schizophrenia, sleepless, suicidal, others All Other Systems: Reviewed and Negative Physical Exam General Appearance: Moderate Distress HEENT: Normal ENT Inspection, Pharynx Normal, TMs Normal Neck: Full Range of Motion, Non-Tender, Normal, Normal Inspection Respiratory: Chest Non-Tender, Lungs Clear, No Accessory Muscle Use, No Respiratory Distress, Normal Breath Sounds Cardiovascular: No Edema, No JVD, No Murmur, No Gallop, Normal Peripheral Pulses, Regular Rate/Rhythm Breast Exam: Deferred Gastrointestinal: No Organomegaly, Non Tender, No Pulsatile Mass, Normal Bowel Sounds, Soft Genitalia: Deferred Pelvic: Deferred Rectal: Deferred Extremities: No calf tenderness, Normal capillary refill, Normal inspection, Normal range of motion, Non-tender, No pedal edema Musculoskeletal : Apperance: Normal Neurologic: Alert, fax machine repairer II-XII nml as Tested, No Motor Deficits, Normal Affect, Normal Mood, No Sensory Deficits Cerebellar Function: NOT DONE Reflexes: NOT DONE Skin: Dry, Normal Color, Warm Peripheral Pulses: 3+ Radial (R), 3+ Radial (L) Lymphatic: No Adenopathy Was a procedure done? Was a procedure done?: No Differential Dx Considerations may include: Anemia Electrolyte imbalance X-Ray, Labs, Meds, VS Vital Signs Date Time Temp Pulse Resp B/P (MAP) Pulse Ox O2 Delivery O2 Flow Rate FiO2 10/24/25 13:53 97.6 87 17 105/64 96 97.6 Patient alert. Came in because of fall. Vitals stable. Answering all questions. No neurological deficit. CT of the head reviewed does not show any acute changes. Explained to the patient. Was told to follow up with her primary care physician. Was told to come back if there is any problem. Time of 1ST Reevaluation: 15:12 Reevaluation 1ST: Unchanged Patient Education/Counseling: Diagnosis, Treatment, Need For Follow Up Family Education/Counseling: Diagnosis, Treatment, Need For Follow Up SEPSIS Sepsis Screen Date sepsis recognized/suspect: Oct 24, 2025 Time Sepsis recognized/suspect: 1356 Recent Procedure: No On Antibiotic Therapy: No Respiratory Rate >20: No Heart Rate >90: No Temp<36 C (96.8 F) or >38.3 C: No SBP <90 or MAP <65 mmHG: No New Acute Mental Status Change: No Is the patient on CPAP, BIPAP,: No Physician Orders Head Without Contrast (10/24/25 14:50) Vital Signs Date Time Temp Pulse Resp B/P (MAP) Pulse Ox O2 Delivery O2 Flow Rate FiO2 10/24/25 13:53 97.6 87 17 105/64 96 97.6 Departure 1 Departure Time of Disposition: 15:43 Impression: Primary Impression: Head injury Qualified Codes: S09.90XA - Unspecified injury of head, initial encounter Disposition: 01 HOME / SELF CARE / HOMELESS Condition: Good Discharged With: Self Critical Care Note Critical Care Time?: No Stability Stability form required: No Heart Score Heart Score: Heart Score Response (Comments) Value History N/A 0 EKG N/A 0 Age N/A 0 Risk Factors N/A 0 Troponin N/A 0 Total 0 I personally scribed for JENNIFER ZARAGOZA MD ([email or web address]) on 10/24/25 at 14:45. Electronically submitted by Dipti Stewart ([email or web address]). JENINFER ZARAGOZA MD Oct 24, 2025 14:45
--- NOTE | 2025-10-24 15:22 | DVH ---
EXAM: CT HEAD WITHOUT CONTRAST INDICATION: fall COMPARISON: None TECHNIQUE: CT of the head without intravenous contrast. Radiation Dose Information: CT Dose: CTDI volume is 64 mGy. Dose-length product is 1269 mGy*cm The dose indicators for CT are the volume Computed Tomography (CT) Dose Index (CTDIvol) and the Dose Length Product (DLP), and are measured in units of mGy and mGy-cm, respectively. These indicators are not patient dose, but values generated from the CT scanner acquisition factors. The report includes radiation exposure data for exposures received during this examination. FINDINGS: The ventricles and sulci are mildly enlarged, compatible with generalized parenchymal volume loss. There is no mass-effect, hemorrhage, midline shift, or abnormal extra-axial fluid collection visible. No calvarial fracture. Essentially clear visualized paranasal sinuses. Mastoid air cells are clear. IMPRESSION: No acute intracranial hemorrhage or mass effect.
== END 2025-10-24 17:37 | disposition home or self-care (01) ==
LOC: ER 13:50
DX: S09.90XA Unspecified injury of head, initial encounter (principal); G40.909 Epilepsy, unspecified, not intractable, without status epilepticus; I10 Essential (primary) hypertension; J44.9 Chronic obstructive pulmonary disease, unspecified; Z90.710 Acquired absence of both cervix and uterus; Z86.73 Personal history of transient ischemic attack (TIA), and cerebral infarction without residual deficits; Z79.899 Other long term (current) drug therapy; Z79.02 Long term (current) use of antithrombotics/antiplatelets; Z87.442 Personal history of urinary calculi; Z91.018 Allergy to other foods; Y93.01 Activity, walking, marching and hiking; W01.198A Fall on same level from slipping, tripping and stumbling with subsequent striking against other object, initial encounter; Y93.89 Activity, other specified; Y92.89 Other specified places as the place of occurrence of the external cause; Y99.8 Other external cause status
CPT/HCPCS: 70450

== ENCOUNTER 2025-10-27 09:40 | Emergency (ER) | payer MEDICAID ==
[~2025-10-27] VITALS: Ht 165.1 cm; Wt 132.0 kg
--- NOTE | 2025-10-27 10:27 | ED.PDOC ---
Musculoskeletal HPI Comments A 45 YEAR OLD FEMALE PRESENTS TO THE ED WITH COMPLAINT OF RIGHT KNEE PAIN. PATIENT STATES SHE HAS BEEN EXPERIENCING RIGHT KNEE PAIN THAT IS WORSE WITH MOVEMENT FOR THE PAST 1 WEEK WITH WORSENING PAIN TODAY, PROMPTING HER TO COME TO THE ED FOR EVALUATION. PATIENT DENIES INJURY TO THE AFFECTED AREA, FEVER, CHILLS, SHORTNESS OF BREATH, CHEST PAIN, ABDOMINAL PAIN, NAUSEA, VOMITING, HEADACHE, OR OTHER COMPLAINTS. NO OTHER SYMPTOMS OR MODIFYING FACTORS AT THIS TIME. PATIENT IS ALERT, ORIENTED X 4, AND HAS STEADY GAIT. Chief Complaint: Lower Extremity Time Seen by MD: 09:44 Reviewed Notes: Nurses Notes, Medications, Allergies Allergies: Coded Allergies: Celecoxib (Verified Allergy, Unknown, 06/07/25) Hydrocodone (Verified Allergy, Unknown, 10/27/25) Uncoded Allergies: COCONUT OIL (Allergy, Unknown, 10/20/25) NITRO (Allergy, Unknown, 08/04/25) Home Meds Reported Medications Verapamil Hcl (Calan) 40 Mg Tb, 1 PO DAILY 06/14/25 Risperidone (Risperidone) 1 Mg Tab, 1 TAB PO BID 06/14/25 Clopidogrel Bisulfate (CLOPIDOGREL) 75 Mg Tab, 1 TAB PO DAILY 06/14/25 Fenofibrate (Fenofibrate) 160 Mg Tab, 1 TAB PO DAILY 06/14/25 Benztropine Mesylate (Benztropine Mesylate) 2 Mg Tab, 1 TAB PO BID 06/14/25 Furosemide (Furosemide) 20 Mg Tab, 1 TAB PO DAILY 06/14/25 Multiple Vitamin (Multivitamin) 1 Tab Tab, 1 TAB PO DAILY 06/14/25 Atorvastatin Calcium (ATORVASTATIN CALCIUM) 80 Mg Tab, 1 TAB PO DAILY 06/14/25 Escitalopram Oxalate (ESCITALOPRAM OXALATE) 20 Mg Tab, 1 TAB PO DAILY 06/14/25 Omeprazole (Omeprazole Dr) 20 Mg Cap, 1 CAP PO DAILY 06/14/25 Prazosin HCl (Prazosin Hydrochloride) 5 Mg Cap, 1 CAP PO HS 06/14/25 Trazodone Hcl (Trazodone Hcl) 300 Mg Tab, 1 TAB PO HS 06/14/25 Hydroxyzine Hcl (Hydroxyzine Hcl) 25 Mg Tab, 1 TAB PO QID 06/14/25 Lamotrigine (Lamotrigine) 200 Mg Tab, 100 MG PO BID 06/14/25 Topiramate (Topiramate) 100 Mg Tab, 1 TAB PO BID 06/14/25 Levetiracetam (Levetiracetam) 750 Mg Tab, 1 TAB PO BID 06/14/25 Information Source: Patient Mode of Arrival: Ambulatory Location: Right Extremity Location: Knee Timing: Days Prehospital treatment: None Severity: Moderate Able to Move Extremity: Yes Bear Weight: Limited Pain: Moderate Mechanism: Spontaneous Circumstances: Spontaneous Onset of Symptoms: Spontaneous Symptoms: Pain DVT Risk Factors: NONE Last Tetanus: Unknown Associated signs and symptoms: Knee pain Past Medical History PAST MEDICAL HISTORY: COPD, CVA, High Lipids, HTN, Kidney Stones, Seizures, TIA, UTI'S Surgical History: Hysterectomy 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 Family History Family History: Reviewed,noncontributory to illness, Family hx of Cancer Social History Smoker: Other Alcohol: Denies ETOH Use Drugs: Denies Drug Use Lives In: Home Constitutional: denies: chills, diaphoresis, fatigue, fever, malaise, sweats, weakness, others EENTM: denies: blurred vision, double vision, ear bleeding, ear discharge, ear drainage, ear pain, ear ringing, eye pain, eye redness, hearing loss, mouth pain, mouth swelling, nasal discharge, nose bleeding, nose congestion, nose pain, photophobia, tearing, throat pain, throat swelling, voice changes, others Respiratory: denies: cough, hemoptysis, orthopnea, SOB at rest, shortness of breath, SOB with excertion, stridor, wheezing, others Cardiovascular: denies: chest pain, dizzy spells, diaphoresis, Dyspnea on exe rtion, edema, irregular heart beat, left arm pain, lightheadedness, palpitations, PND, syncope, others Gastrointestinal: denies: abdomen distended, abdominal pain, blood streaked bowels, constipated, diarrhea, dysphagia, difficulty swallowing, hematemesis, melena, nausea, poor appetite, poor fluid intake, rectal bleeding, rectal pain, vomiting, others Genitourinary: denies: abnormal vagina bleeding, burning, dyspareunia, dysuria, flank pain, frequency, hematuria, incontinence, pain, , vagina discharge, urgency, others Neurological: denies: dizziness, fainting, headache, left sided numbness, left sided weakness, numbness, paresthesia, pre-existing deficit, right sided numbness, right sided weakness, seizure, speech problems, tingling, tremors, weakness, others Musculoskeletal: reports: joint pain, joint swelling, others (RIGHT KNEE PAIN); denies: back pain, gout, muscle pain, muscle stiffness, neck pain Integumetry: denies: bruises, change in color, change in hair/nails, dryness, laceration, lesions, lumps, rash, wounds, others Allergic/Immunocompromised: denies: Difficulty Healing, Frequent Infections, Hives, Itching, others Hematologic/Lymphatic: denies: anemia, blood clots, easy bleeding, easy bruising, swollen glands, others Endocrine: denies: excessive hunger, excessive sweating, excessive thirst, excessive urination, flushing, intolerance to cold, intolerance to heat, unexplained weight gain, unexplained weight loss, others Psychiatric: denies: anxiety, bipolar disorder, depression, hopeless, panic disorder, schizophrenia, sleepless, suicidal, others All Other Systems: Reviewed and Negative Physical Exam General Appearance: No Apparent Distress, Obese HEENT: Normal ENT Inspection, PERRL/EOMI, Pharynx Normal, TMs Normal Neck: Full Range of Motion, Non-Tender, Normal, Normal Inspection Respiratory: Chest Non-Tender, Lungs Clear, No Accessory Muscle Use, No Respiratory Distress, Normal Breath Sounds Cardiovascular: No Edema, No JVD, No Murmur, No Gallop, Normal Peripheral Pulses, Regular Rate/Rhythm Breast Exam: Deferred Gastrointestinal: No Organomegaly, Non Tender, No Pulsatile Mass, Normal Bowel Sounds, Soft Genitalia: Deferred Pelvic: Deferred Rectal: Deferred Extremities: Decreased range of motion (SLIGHTLY. ), No calf tenderness, Normal capillary refill, Normal inspection, No pedal edema, Tender (AND MILD SWELLING ON RIGHT KNEE, NO JOINT EFFUSION AND DEFORMITY. ) Musculoskeletal : Apperance: Normal Neurologic: Alert, mesh cutter II-XII nml as Tested, No Motor Deficits, Normal Affect, Normal Mood, No Sensory Deficits Cerebellar Function: Normal Reflexes: Normal Skin: Dry, Normal Color, Warm Peripheral Pulses: 2+ carotid (R), 2+ carotid (L), 2+ dorsalis pedis (R), 2+ dorsalis pedis (L) Lymphatic: No Adenopathy Was a procedure done? Was a procedure done?: No Differential Diagnosis EXT Differential Diagnosis: Sprain, DJD, Strain, Arthritis X-Ray, Labs, Meds, VS Vital Signs Date Time Temp Pulse Resp B/P (MAP) Pulse Ox O2 Delivery O2 Flow Rate FiO2 10/27/25 09:47 97.8 81 20 135/90 97 97.8 Current Medications Medications (Trade) Dose Ordered Sig/[place] Route Start Time Stop Time Status Last Admin Ketorolac Tromethamine (Toradol Injection) 60 mg ONCE ONCE IM 10/27/25 10:30 10/27/25 10:31 DC 10/27/25 10:36 ORDERING PHYSICIAN: ALEXANDRA VALENTINE PROCEDURE(s): RKN3 - R KNEE 3V XRAY REASON: PAIN, NO INJURY ORDER NUMBER(s): [id number], ACCESSION NUMBER(s): [id number] CLINICAL HISTORY: PAIN, NO INJURY TECHNIQUE: 3 views of the right knee were obtained. COMPARISON: XY R KNEE 3V XRAY on DOS: 08/07/25, XR KNEE COMPLETE LT on DOS: 06/10/24, XR KNEE COMPLETE RT on DOS: 01/19/23 FINDINGS: No acute fracture or dislocation is seen. No joint effusion is evident. There are no significant degenerative changes. IMPRESSION: NO ACUTE RADIOGRAPHIC ABNORMALITY OF THE RIGHT KNEE. ATED BY: JORGE ALFORD MD DICTATED DATE/TIME: 10/27/25 103 SIGNED BY: JORGE ALFORD MD SIGNED DATE/TIME: 10/27/25 103 CC: X-Ray, Labs, Meds, VS Comment EXTERNAL MEDICAL RECORDS REVIEWED: [NONE] INDEPENDENT HISTORIANS: [NONE] SOCIAL DETERMINANTS OF HEALTH: [NONE] LABS ORDERED: NONE REVIEWED AND INTERPRETED RESULTS: NONE IMAGING ORDERED: XR KNEE RT TREATMENTS ORDERED: TORADOL 60 MG IM PROCEDURES PERFORMED: NONE CRITICAL CARE TIME: NONE I HAVE DISCUSSED THE PATIENT WITH THE ATTENDING PHYSICIAN DR. ZARAGOZA AND HE AGREES WITH THE PATIENT'S PLAN OF CARE AND DISPOSITION. BASED ON HISTORY OF PRESENT ILLNESS, AND PHYSICAL EXAM, PATIENT WILL BE DISCHARGED HOME. SHARED DECISION MAKING: DISCUSSED WITH PATIENT THAT THEIR WORKUP WAS NORMAL. PATIENT INSTRUCTED TO FOLLOW UP WITH PRIMARY CARE PROVIDER IN 1-2 DAYS FOR RE- EVALUATION OF SYMPTOMS. PATIENT VERBALIZES UNDERSTANDING TO RETURN TO ED FOR NEW OR WORSENING SYMPTOMS OR IF FOLLOW UP WITH PCP CANNOT BE OBTAINED. PATIENT FEELS COMFORTABLE GOING HOME AT THIS TIME. ALL QUESTIONS ADDRESSED AT TIME OF DISCHARGE. Images Reviewed?: Images reviewed and evaluated by me Time of 1ST Reevaluation: 10:46 Reevaluation 1ST: Improved Patient Education/Counseling: Diagnosis, Treatment, Need For Follow Up Family Education/Counseling: Diagnosis, Treatment, Need For Follow Up Medical Screening: No EMC Exist At This Time Departure 1 Departure Time of Disposition: 10:46 Impression: Primary Impression: Internal derangement of right knee Disposition: HOME / SELF CARE / HOMELESS Condition: Stable Additional Instructions: FOLLOW-UP WITH PCP IN 1 TO 2 DAYS. TAKE MEDICATIONS PRESCRIBED. RETURN TO ED FOR ANY NEW OR WORSENING SYMPTOMS. Discharged With: Self, Spouse Critical Care Note Critical Care Time?: No Stability Stability form required: No I personally scribed for ALEXANDRA VALENTINE ([email or web address]) on 10/27/25 at 10:27. Electronically submitted by Bony Bassett ([email or web address]). I personally scribed for ALEXANDRA VALENTINE ([email or web address]) on 10/27/25 at 10:29. Electronically submitted by Bony Bassett ([email or web address]). I personally scribed for ALEXANDRA VALENTINE ([email or web address]) on 10/27/25 at 10:40. Electronically submitted by Bony Bassett ([email or web address]). ALEXANDRA VALENTINE Oct 27, 2025 10:27
[2025-10-27] MEDS: KETOROLAC TROMETH 60MG/2ML VIAL IM ONE (10:36)
--- NOTE | 2025-10-27 10:37 | DVH ---
CLINICAL HISTORY: PAIN, NO INJURY TECHNIQUE: 3 views of the right knee were obtained. COMPARISON: XY R KNEE 3V XRAY on DOS: 08/07/25, XR KNEE COMPLETE LT on DOS: 06/10/24, XR KNEE COMPLETE RT on DOS: 01/19/23 FINDINGS: No acute fracture or dislocation is seen. No joint effusion is evident. There are no significant degenerative changes. IMPRESSION: NO ACUTE RADIOGRAPHIC ABNORMALITY OF THE RIGHT KNEE.
[2025-10-27 10:56] VITALS: BP 158/78; PULSE 98; RESP 18; TEMP 98.1; O2SAT 96
== END 2025-10-27 10:57 | disposition home or self-care (01) ==
LOC: ER 09:40
DX: M23.91 Unspecified internal derangement of right knee (principal); I10 Essential (primary) hypertension; Z88.5 Allergy status to narcotic agent; Z90.710 Acquired absence of both cervix and uterus; Z91.018 Allergy to other foods; Z86.73 Personal history of transient ischemic attack (TIA), and cerebral infarction without residual deficits; Z79.899 Other long term (current) drug therapy
CPT/HCPCS: 73562; 96372; 99283; J1885